=== PATIENT | male | born 1970 | race Two or more races ===

== ENCOUNTER 2025-01-22 07:19 | Inpatient (IN) | payer MEDICAID, OTHER ==
[~2025-01-22] VITALS: Ht 167.6 cm; Wt 69.4 kg
--- NOTE | 2025-01-22 07:58 | ED.PDOC ---
GI ASSESSMENT HPI Comments A 54 YEAR OLD MALE PRESENTS TO THE ED WITH COMPLAINT OF DIARRHEA. PT STATES HE HAS BEEN HAVING DIARRHEA FOR THE PAST 1X WEEK. PT STATES HE HAS BEEN HAVING 4-5 EPISODES DAILY. PT WAS AT YESTERDAY FOR SIMILAR COMPLAINT BUT STATES HE LEFT AFTER PROVIDING URINE BECAUSE HE THOUGHT THEY WOULD GET BACK TO HIM WITH RESULTS. PT ALSO HAS BEEN HAVING DIFFUSE LOW ABDOMINAL PAIN. PATIENT DENIES FEVER, CHILLS, SHORTNESS OF BREATH, CHEST PAIN, ABDOMINAL PAIN, NAUSEA, VOMITING, HEADACHE, OR OTHER COMPLAINTS. NO OTHER SYMPTOMS OR MODIFYING FACTORS AT THIS TIME. PATIENT IS ALERT, ORIENTED X 4, AND HAS STEADY GAIT. Chief Complaint: Diarrhea Time Seen by MD: 07:49 Reviewed Notes: Nurses Notes, Medications, Allergies Allergies: Coded Allergies: NO KNOWN ALLERGIES (Unverified , 01/22/25) Information Source: Patient Mode of Arrival: Ambulatory Brought in by: SELF Timing: Days Duration: Since onset Prehospital treatment: None Quality: Aching, Cramping, Colicky Vomitus: None Stool: Loose, Watery Severity: Moderate Recent: None Recent Hx of: None Pain Location: RLQ, LLQ Modifying Factors: Nothing Associated sign and symptoms: Diarrhea, Abdominal Pain Past Medical History PAST MEDICAL HISTORY: Denies Surgical History: Denies all surgeries Family History Family History: Reviewed,noncontributory to illness Social History Smoker: Non-Smoker Alcohol: Denies ETOH Use Drugs: Denies Drug Use Lives In: Homeless Constitutional: denies: chills, diaphoresis, fatigue, fever, malaise, sweats, weakness, others EENTM: denies: blurred vision, double vision, ear bleeding, ear discharge, ear drainage, ear pain, ear ringing, eye pain, eye redness, hearing loss, mouth pain, mouth swelling, nasal discharge, nose bleeding, nose congestion, nose pain, photophobia, tearing, throat pain, throat swelling, voice changes, others Respiratory: denies: cough, hemoptysis, orthopnea, SOB at rest, shortness of breath, SOB with excertion, stridor, wheezing, others Cardiovascular: denies: chest pain, dizzy spells, diaphoresis, Dyspnea on exertion, edema, irregular heart beat, left arm pain, lightheadedness, palpitations, PND, syncope, others Gastrointestinal: reports: abdominal pain, diarrhea; denies: abdomen distended, blood streaked bowels, constipated, dysphagia, difficulty swallowing, hematemesis, melena, nausea, poor appetite, poor fluid intake, rectal bleeding, rectal pain, vomiting, others Genitourinary: denies: burning, dysuria, flank pain, frequency, hematuria, incontinence, penile discharge, penile sore, pain, testicle pain, testicle swelling, urgency, others Neurological: denies: dizziness, fainting, headache, left sided numbness, left sided weakness, numbness, paresthesia, pre-existing deficit, right sided numbness, right sided weakness, seizure, speech problems, tingling, tremors, weakness, others Musculoskeletal: denies: back pain, gout, joint pain, joint swelling, muscle pain, muscle stiffness, neck pain, others Integumetry: denies: bruises, change in color, change in hair/nails, dryness, laceration, lesions, lumps, rash, wounds, others Allergic/Immunocompromised: denies: Difficulty Healing, Frequent Infections, Hives, Itching, others Hematologic/Lymphatic: denies: anemia, blood clots, easy bleeding, easy bruising, swollen glands, others Endocrine: denies: excessive hunger, excessive sweating, excessive thirst, excessive urination, flushing, intolerance to cold, intolerance to heat, unexplained weight gain, unexplained weight loss, others Psychiatric: denies: anxiety, bipolar disorder, depression, hopeless, panic disorder, schizophrenia, sleepless, suicidal, others All Other Systems: Reviewed and Negative Physical Exam General Appearance: No Apparent Distress, Normal HEENT: Normal ENT Inspection, PERRL/EOMI, Pharynx Normal, TMs Normal Neck: Full Range of Motion, Non-Tender, Normal, Normal Inspection Respiratory: Chest Non-Tender, Lungs Clear, No Accessory Muscle Use, No Respiratory Distress, Normal Breath Sounds Cardiovascular: No Edema, No JVD, No Murmur, No Gallop, Normal Peripheral Pulses, Regular Rate/Rhythm Breast Exam: Deferred Gastrointestinal: LLQ, No Organomegaly, No Pulsatile Mass, Normal Bowel Sounds, RLQ, Soft, Tenderness (LOWER ABD, NO GUARDING AND REBOUND TENDERNESS. ) Genitalia: Deferred Pelvic: Deferred Rectal: Deferred Extremities: No calf tenderness, Normal capillary refill, Normal inspection, Normal range of motion, Non-tender, No pedal edema Musculoskeletal : Apperance: Normal Neurologic: Alert, anthropology department chair II-XII nml as Tested, No Motor Deficits, Normal Affect, Normal Mood, No Sensory Deficits Cerebellar Function: Normal Reflexes: Normal Skin: Dry, Normal Color, Warm Peripheral Pulses: 2+ carotid (R), 2+ carotid (L) Lymphatic: No Adenopathy Was a procedure done? Was a procedure done?: No GI differential Dx Differential Diagnosis: Diverticular disease, Gastritis/PUD, Gastroenteritis, Inflammatory BD, Ischemic Bowel, UTI, Electrolyte Imbalance, Food Poisoning Other Differential Diagnosis DIARRHEA,COLITIS X-Ray, Labs, Meds, VS Vital Signs Date Time Temp Pulse Resp B/P (MAP) Pulse Ox O2 Delivery O2 Flow Rate FiO2 01/22/25 08:00 100 18 96 Room Air 01/22/25 08:00 100 18 114/82 (93) 96 01/22/25 07:20 97.9 92 22 130/80 94 97.9 Lab Test 01/22/25 07:54 01/22/25 07:48 Range/Units White Blood Count 7.2 4.4-10.8 10^3/uL Red Blood Count 4.15 L 4.5-5.90 10^6/uL Hemoglobin 11.9 L 13.5-17.5 g/dL Hematocrit 35.7 L 41.0-53.0 % Mean Corpuscular Volume 86.2 80.0-100.0 fL Mean Corpuscular Hemoglobin 28.6 28.0-32.0 pg Mean Corpuscular Hemoglobin Concent 33.2 32.0-36.0 g/dL Red Cell Distribution Width 15.9 H 11.8-14.3 % Platelet Count 319 140-450 10^3/uL Mean Platelet Volume 7.6 6.9-10.8 fL Neutrophils (%) (Auto) 37.0-80.0 % Lymphocytes (%) (Auto) 10.0-50.0 % Monocytes (%) (Auto) 0.0-12.0 % Eosinophils (%) (Auto) 0.0-7.0 % Basophils (%) (Auto) 0.0-2.0 % Neutrophils # (Auto) 1.6-8.6 10 ^3/uL Lymphocytes # (Auto) 0.4-5.4 10 ^3/uL Monocytes # (Auto) 0-1.3 10 ^3/uL Differential Total Cells Counted 100.0 100 Neutrophils % (Manual) 35 L 37.0-80.0 Band Neutrophils % (Manual) 0 Lymphocytes % (Manual) 14 10.0-50.0 Monocytes % (Manual) 6 0-12 Eosinophils % (Manual) 45 H 0-7 Basophils % (Manual) 0 0.0-2.0 Metamyelocytes % (manual) 0 Myelocytes % (Manual) 0 Promyelocytes % (Manual) 0 Blast Cells % (Manual) 0 Reactive Lymphocytes 0 Platelet Estimate Adequate Sodium Level 138 136-145 mmol/L Potassium Level 4.4 3.5-5.1 mmol/L Chloride Level 105 98-107 mmol/L Carbon Dioxide Level 26 20-31 mmol/L Anion Gap 7 5-15 Blood Urea Nitrogen 12 9-23 mg/dL Creatinine 0.96 0.700-1.30 mg/dL Glomerular Filtration Rate Calc 93 >90 mL/min BUN/Creatinine Ratio 12.5 10.0-20.0 Serum Glucose 96 74-106 mg/dL Calcium Level 8.6 L 8.7-10.4 mg/dL Total Bilirubin 0.3 0.2-1.0 mg/dL Aspartate Amino Transferase (AST) 21 13-40 U/L Alanine Aminotransferase (ALT) 26 7-40 U/L Alkaline Phosphatase 109 46-116 U/L Total Protein 9.0 H 5.7-8.2 g/dL Albumin 3.4 3.2-4.8 g/dL Urine Color Yellow Yellow Urine Clarity Turbid H Clear Urine pH 6.5 5.0-9.0 Urine Specific Sanders 1.021 1.001-1.035 Urine Protein Trace H Negative Urine Ketones Negative Negative Urine Blood Trace H Negative /uL Urine Nitrite 2+ H Negative Urine Bilirubin Negative Negative Urine Urobilinogen 2 H Negative mg/dL Urine Leukocyte Esterase 3+ Negative /uL Urine RBC 7 0 - 3 /hpf Urine Microscopic WBC 31 H 0-3 /HPF Urine Squamous Epithelial Cells Few <5 /hpf Urine Bacteria Few H None Seen /hpf Urine Glucose Normal Normal mg/dL Urine Opiates Screen Neg NEGATIVE Urine Fentanyl Screen Neg NEGATIVE Urine Barbiturates Screen Neg NEGATIVE Urine Phencyclidine Screen Neg NEGATIVE Urine Amphetamines Screen Pos NEGATIVE Urine Benzodiazepines Screen Neg NEGATIVE Urine Cocaine Screen Neg NEGATIVE Urine Cannabinoids Screen Neg NEGATIVE Microbiology Date/Time Source Procedure Growth Status 01/22/25 07:45 Stool Clostridium difficile Toxin Assay - Final Complete Current Medications Medications (Trade) Dose Ordered Sig/Joni Route Start Time Stop Time Status Last Admin Sodium Chloride 1,000 ml @ 1,000 mls/hr Q1H ONCE IV 01/22/25 07:45 01/22/25 08:44 DC 01/22/25 09:19 Loperamide HCl (Imodium Capsule) 4 mg ONCE ONCE PO 01/22/25 07:45 01/22/25 07:49 DC 01/22/25 09:19 Famotidine (Pepcid Injection) 20 mg ONCE ONCE IV 01/22/25 07:45 01/22/25 07:49 DC 01/22/25 09:20 [place] [id number] Ph: [phone] DIAGNOSTIC IMAGING Diagnostic Imaging Report : [id number] Signed PATIENT: ROCIO MENG ACCT: [id number] UNIT: [id number] : 1970 LOC: ER ROOM / BED: / AGE / SEX: 54 / M ADM STATUS: REG ER SERVICE ORDERING PHYSICIAN: BRANDON ALMONTE PROCEDURE(s): ABPL - CT AB PEL WO CON-NO ORAL OR IV REASON: ABD PAIN WITH DIZRRHEA X ONE WEEK ORDER NUMBER(s): [id number], ACCESSION NUMBER(s): [id number] Exam: CT CT AB PEL WO CON-NO ORAL OR IV History: ABD PAIN WITH DIZRRHEA X ONE WEEK Comparison Study: None. Technique: Multidetector spiral CT of the abdomen and pelvis was performed from lung bases to pubic symphysis. Imaging was performed without intravenous contrast. Coronal and sagittal multiplanar reformats were obtained from the axial data set by the technologist. Radiation Dose : 1. Abdomen/Pelvis: CTDIvol 5.57 mGy, DLP 323.64 mGy*cm. Findings: Evaluation of vasculature and solid organs is limited due to lack of intravenous contrast use. Evaluation also limited by respiratory motion through the upper abdomen. Lung Bases: There are right middle and lower lobe infiltrates. Coronary artery calcifications noted. Visualized portions of the heart are normal in size. No pericardial effusion. Liver: The liver is normal in size. No focal lesions. Gallbladder and Biliary Tree: The gallbladder is unremarkable. No intrahepatic or extrahepatic biliary ductal dilatation. Spleen: Unremarkable Pancreas: The pancreas is grossly unremarkable. Adrenal Glands: Unremarkable Kidneys: Kidneys are unremarkable without calculi or hydronephrosis. GI tract: The stomach is grossly normal in appearance. No evidence of small bowel wall thickening or abnormal dilatation to suggest bowel obstruction. There is mucosal thickening of the distal sigmoid colon and rectum. No findings to suggest acute appendicitis. Peritoneum/mesentery/retroperitoneum. No evidence of free intraperitoneal air. No ascites. No evidence of suspicious lymphadenopathy. Abdominal Wall: Unremarkable. Vasculature: The visualized abdominal aorta is normal in size and caliber. Evaluation of abdominal and pelvic vessels is limited due to lack of intravenous contrast. Urinary Bladder: Underdistended urinary bladder with wall thickening. Pelvic Organs: Prostate and seminal vesicles are unremarkable. Musculoskeletal: No aggressive focal bony lesions, acute fractures or disl ocation. There is serpiginous sclerosis in the bilateral femoral heads. IMPRESSION: 1. Mucosal thickening of the distal sigmoid colon and rectum may be due to underdistention or represent infectious/inflammatory colitis. 2. Right middle and lower lobe infiltrates. 3. Serpiginous sclerosis in the bilateral femoral heads suggesting avascular necrosis. No articular collapse. 4. Mild wall thickening of the urinary bladder may be related to underdistention. Cystitis is not excluded. ATED BY: JOSETTE VASQUEZ MD DICTATED DATE/TIME: 01/22/25922 SIGNED BY: JOSETTE VASQUEZ MD SIGNED DATE/TIME: 01/22/25922 CC: X-Ray, Labs, Meds, VS Comment COURSE: EXTERNAL MEDICAL RECORDS REVIEWED: [NONE] INDEPENDENT HISTORIANS: [NONE] SOCIAL DETERMINANTS OF HEALTH: [NONE] LABS ORDERED: CBC, CMP, UA, DRUG SCREEN, C DIFF TOXIN, PENDING REVIEWED AND INTERPRETED RESULTS: NORMAL, EXCEPT UA: WBC : NITRITE:2+, LEUKOCYTE:3+ IMAGING ORDERED: CT ABDOMEN PELVIS NON-CON TREATMENTS ORDERED: IV FLUIDS 1L, FAMOTIDINE 20 MG, LOPERAMIDE 4 MG PO, FLAGYL 500MG IVP AND LEVAQUIN 500MG IVP PROCEDURES PERFORMED: NONE CRITICAL CARE TIME: NONE I HAVE DISCUSSED THE PATIENT WITH THE ATTENDING PHYSICIAN DR. GAMEZ AND HE AGREES WITH THE PATIENT'S PLAN OF CARE AND DISPOSITION. THE PT WILL BE ADMITTED FOR IV ANTIBIOTICS AND MANAGEMENT FOR HIS COLITIS. THE PT WILL BE ADMITTED FOR FURTHER EVALUATION. Time of 1ST Reevaluation: 09:46 Reevaluation 1ST: Unchanged Patient Education/Counseling: Diagnosis, Treatment Family Education/Counseling: Diagnosis, Treatment SEPSIS Sepsis Screen Date sepsis recognized/suspect: Jan 22, 2025 Time Sepsis recognized/suspect: 722 Recent Procedure: No On Antibiotic Therapy: No Respiratory Rate >20: No Heart Rate >90: No Temp<36 C (96.8 F) or >38.3 C: No SBP <90 or MAP <65 mmHG: No New Acute Mental Status Change: No Is the patient on CPAP, BIPAP,: No Physician Orders Ct Ab Pel Wo Con-No Oral Or Iv (01/22/25 07:44) Heplock Iv (01/22/25 ) Vital Signs Date Time Temp Pulse Resp B/P (MAP) Pulse Ox O2 Delivery O2 Flow Rate FiO2 01/22/25 08:00 100 18 96 Room Air 01/22/25 08:00 100 18 114/82 (93) 96 01/22/25 07:20 97.9 92 22 130/80 94 97.9 Laboratory Tests Test 01/22/25 07:54 White Blood Count 7.2 10^3/uL (4.4-10.8) Medications Medications Dose Ordered Sig/Joni Route Start Time Stop Time Status Last Admin Dose Admin Famotidine 20 mg ONCE ONCE IV 01/22/25 07:45 01/22/25 07:49 DC 01/22/25 09:20 Loperamide HCl 4 mg ONCE ONCE PO 01/22/25 07:45 01/22/25 07:49 DC 01/22/25 09:19 Sodium Chloride 1,000 ml @ 1,000 mls/hr Q1H ONCE IV 01/22/25 07:45 01/22/25 08:44 DC 01/22/25 09:19 Departure 1 Departure Time of Disposition: 09:46 Impression: Primary Impression: Infectious colitis Additional Impressions: UTI (urinary tract infection) Qualified Codes: N39.0 - Urinary tract infection, site not specified; R31.9 - Hematuria, unspecified Methamphetamine abuse Disposition: ADMITTED INPATIENT Condition: Serious Critical Care Note Critical Care Time?: No Stability Stability form required: Yes Unstable for transfer: Requires medication, ED Physician Assesment, Possible rapid decline Heart Score Heart Score: Heart Score Response (Comments) Value History N/A 0 EKG N/A 0 Age N/A 0 Risk Factors N/A 0 Troponin N/A 0 Total 0 I personally scribed for BRANDON ALMONTE ([email or web address]) on 01/22/25 at 07:58. Electronically submitted by Avery Sterling ([email or web address]). I personally scribed for BRANDON ALMONTE ([email or web address]) on 01/22/25 at 09:29. Electronically submitted by Avery Sterling ([email or web address]). I personally scribed for BRANDON ALMONTE ([email or web address]) on 01/22/25 at 09:38. Electronically submitted by Avery Sterling ([email or web address]). I personally scribed for BRANDON ALMONTE ([email or web address]) on 01/22/25 at 09:54. Electronically submitted by Avery Sterling ([email or web address]). BRANDON ALMONTE Jan 22, 2025 07:58
[2025-01-22 08:05] LABS: Hematocrit 35.7 % (41.0-53.0); Hemoglobin 11.9 g/dL (13.5-17.5); Mean Corpuscular Hemoglobin 28.6 pg (28.0-32.0); Mean Corpuscular Volume 86.2 fL (80.0-100.0)
[2025-01-22 08:22] LABS: Urine Protein, UAD TRACE (Negative)
[2025-01-22 08:23] LABS: Alanine Aminotransferase 26 U/L (7-40); Albumin 3.4 g/dL (3.2-4.8); Alkaline Phosphatase 109 U/L (46-116); Anion Gap 7 (5-15); BUN/Creatinine Ratio 12.5 (10.0-20.0); Blood Urea Nitrogen 12 mg/dL (9-23); Carbon Dioxide 26 mmol/L (20-31); Chloride 105 mmol/L (98-107); Glucose 96 mg/dL (74-106); Potassium 4.4 mmol/L (3.5-5.1); Sodium 138 mmol/L (136-145)
[2025-01-22 08:24] LABS: Bilirubin, Total 0.3 mg/dL (0.2-1.0)
[2025-01-22 08:27] LABS: Calcium 8.6 mg/dL (8.7-10.4); Total Protein 9.0 g/dL (5.7-8.2)
[2025-01-22 08:42] LABS: Amphetamine Screen, Urine Pos (NEGATIVE); Barbiturate Scree,Urine Neg (NEGATIVE); Benzodiazephine Screen, Urine Neg (NEGATIVE); Cannabinoid Screen, Urine Neg (NEGATIVE); Cocaine Screen, Urine Neg (NEGATIVE); Opiate Scree,Urine Neg (NEGATIVE); Phencyclidine Screen, Urine Neg (NEGATIVE)
[2025-01-22] MEDS: SODIUM CHLORIDE 0.9% 1,000 ML IV ONE (09:19)
[2025-01-22] MEDS: LOPERAMIDE HCL 2 MG CAP/TAB PO ONE (09:19)
[2025-01-22 09:20] LABS: Total Cells Counted 100.0 (100)
[2025-01-22] MEDS: FAMOTIDINE (10MG/ML) 2ML VL IV ONE (09:20)
--- NOTE | 2025-01-22 09:25 | DVH ---
Exam: CT CT AB PEL WO CON-NO ORAL OR IV History: ABD PAIN WITH DIZRRHEA X ONE WEEK Comparison Study: None. Technique: Multidetector spiral CT of the abdomen and pelvis was performed from lung bases to pubic symphysis. Imaging was performed without intravenous contrast. Coronal and sagittal multiplanar reformats were obtained from the axial data set by the technologist. Radiation Dose : 1. Abdomen/Pelvis: CTDIvol 5.57 mGy, DLP 323.64 mGy*cm. Findings: Evaluation of vasculature and solid organs is limited due to lack of intravenous contrast use. Evaluation also limited by respiratory motion through the upper abdomen. Lung Bases: There are right middle and lower lobe infiltrates. Coronary artery calcifications noted. Visualized portions of the heart are normal in size. No pericardial effusion. Liver: The liver is normal in size. No focal lesions. Gallbladder and Biliary Tree: The gallbladder is unremarkable. No intrahepatic or extrahepatic biliary ductal dilatation. Spleen: Unremarkable Pancreas: The pancreas is grossly unremarkable. Adrenal Glands: Unremarkable Kidneys: Kidneys are unremarkable without calculi or hydronephrosis. GI tract: The stomach is grossly normal in appearance. No evidence of small bowel wall thickening or abnormal dilatation to suggest bowel obstruction. There is mucosal thickening of the distal sigmoid colon and rectum. No findings to suggest acute appendicitis. Peritoneum/mesentery/retroperitoneum. No evidence of free intraperitoneal air. No ascites. No evidence of suspicious lymphadenopathy. Abdominal Wall: Unremarkable. Vasculature: The visualized abdominal aorta is normal in size and caliber. Evaluation of abdominal and pelvic vessels is limited due to lack of intravenous contrast. Urinary Bladder: Underdistended urinary bladder with wall thickening. Pelvic Organs: Prostate and seminal vesicles are unremarkable. Musculoskeletal: No aggressive focal bony lesions, acute fractures or dislocation. There is serpiginous sclerosis in the bilateral femoral heads. IMPRESSION: 1. Mucosal thickening of the distal sigmoid colon and rectum may be due to underdistention or represent infectious/inflammatory colitis. 2. Right middle and lower lobe infiltrates. 3. Serpiginous sclerosis in the bilateral femoral heads suggesting avascular necrosis. No articular collapse. 4. Mild wall thickening of the urinary bladder may be related to underdistention. Cystitis is not excluded.
[2025-01-22] MEDS ORDERED: MORPHINE SULFATE INJ 2 MG/ml SYRG IV PRN (09:45)
[2025-01-22] MEDS ORDERED: ONDANSETRON HCL 4 MG/2 ML VIAL IV PRN (09:45)
--- NOTE | 2025-01-22 09:58 | DVHHP2 ---
History of Present Illness Reason for Visit: Diarrhea x1 week History of Present Illness Mirza Elam is a 54-year-old male with unknown past medical history who presents to the ED with diarrhea x1 week. Patient reports that he has been having 4-5 episodes of watery stool, now reports abdominal pain with nausea, vomiting, and headache. Patient reports that his headache is 1/10 "pain" and constant. Reports that he is homeless but does stay with a friend sometimes and [place]. He denies any cough or phlegm. Patient is a poor historian. Patient appears unkempt. Patient denies any recent sick contacts, recent ingestion of spoiled food, recent trauma or injury, chest pain, shortness of breath, fever, chills, lightheadedness, weakness, or dizziness. Past Surgical History: None Family History: None Smoke: No ALCOHOL: none Drugs: Other (Amphetamines) Lives: Homeless Domestic Violence: Neg Review of Systems Constitutional: Yes: Other (Headache) Gastrointestinal: Nausea, Vomiting, Abdominal Pain, Diarrhea Allergies: Coded Allergies: NO KNOWN ALLERGIES (Unverified , 01/22/25) Exam Vital Signs Vital Signs Date Time Temp Pulse Resp B/P (MAP) Pulse Ox O2 Delivery O2 Flow Rate FiO2 01/22/25 08:00 100 18 96 Room Air 01/22/25 08:00 114/82 (93) 01/22/25 07:20 97.9 97.9 General Appearance: Alert, Oriented X3, Cooperative, No acute distress HEENT: Atraumatic, PERRLA, EOMI Respiratory: Normal air movement Cardiovascular: Regular rate, Normal S1, Normal S2 Abdominal: Soft Extremities: No cyanosis Neuro: Normal gait, Normal speech, Strength at 5/5 X4 ext, Normal tone, Sensation intact Psych/Mental Status: Mental status NL, Mood NL Labs/Xrays Labs Test 01/22/25 07:54 01/22/25 07:48 Range/Units White Blood Count 7.2 4.4-10.8 10^3/uL Red Blood Count 4.15 L 4.5-5.90 10^6/uL Hemoglobin 11.9 L 13.5-17.5 g/dL Hematocrit 35.7 L 41.0-53.0 % Mean Corpuscular Volume 86.2 80.0-100.0 fL Mean Corpuscular Hemoglobin 28.6 28.0-32.0 pg Mean Corpuscular Hemoglobin Concent 33.2 32.0-36.0 g/dL Red Cell Distribution Width 15.9 H 11.8-14.3 % Platelet Count 319 140-450 10^3/uL Mean Platelet Volume 7.6 6.9-10.8 fL Neutrophils (%) (Auto) 37.0-80.0 % Lymphocytes (%) (Auto) 10.0-50.0 % Monocytes (%) (Auto) 0.0-12.0 % Eosinophils (%) (Auto) 0.0-7.0 % Basophils (%) (Auto) 0.0-2.0 % Neutrophils # (Auto) 1.6-8.6 10 ^3/uL Lymphocytes # (Auto) 0.4-5.4 10 ^3/uL Monocytes # (Auto) 0-1.3 10 ^3/uL Differential Total Cells Counted 100.0 100 Neutrophils % (Manual) 35 L 37.0-80.0 Band Neutrophils % (Manual) 0 Lymphocytes % (Manual) 14 10.0-50.0 Monocytes % (Manual) 6 0-12 Eosinophils % (Manual) 45 H 0-7 Basophils % (Manual) 0 0.0-2.0 Metamyelocytes % (manual) 0 Myelocytes % (Manual) 0 Promyelocytes % (Manual) 0 Blast Cells % (Manual) 0 Reactive Lymphocytes 0 Platelet Estimate Adequate Sodium Level 138 136-145 mmol/L Potassium Level 4.4 3.5-5.1 mmol/L Chloride Level 105 98-107 mmol/L Carbon Dioxide Level 26 20-31 mmol/L Anion Gap 7 5-15 Blood Urea Nitrogen 12 9-23 mg/dL Creatinine 0.96 0.700-1.30 mg/dL Glomerular Filtration Rate Calc 93 >90 mL/min BUN/Creatinine Ratio 12.5 10.0-20.0 Serum Glucose 96 74-106 mg/dL Calcium Level 8.6 L 8.7-10.4 mg/dL Total Bilirubin 0.3 0.2-1.0 mg/dL Aspartate Amino Transferase (AST) 21 13-40 U/L Alanine Aminotransferase (ALT) 26 7-40 U/L Alkaline Phosphatase 109 46-116 U/L Total Protein 9.0 H 5.7-8.2 g/dL Albumin 3.4 3.2-4.8 g/dL Urine Color Yellow Yellow Urine Clarity Turbid H Clear Urine pH 6.5 5.0-9.0 Urine Specific [place] 1.021 1.001-1.035 Urine Protein Trace H Negative Urine Ketones Negative Negative Urine Blood Trace H Negative /uL Urine Nitrite 2+ H Negative Urine Bilirubin Negative Negative Urine Urobilinogen 2 H Negative mg/dL Urine Leukocyte Esterase 3+ Negative /uL Urine RBC 7 0 - 3 /hpf Urine Microscopic WBC 31 H 0-3 /HPF Urine Squamous Epithelial Cells Few <5 /hpf Urine Bacteria Few H None Seen /hpf Urine Glucose Normal Normal mg/dL Urine Opiates Screen Neg NEGATIVE Urine Fentanyl Screen Neg NEGATIVE Urine Barbiturates Screen Neg NEGATIVE Urine Phencyclidine Screen Neg NEGATIVE Urine Amphetamines Screen Pos NEGATIVE Urine Benzodiazepines Screen Neg NEGATIVE Urine Cocaine Screen Neg NEGATIVE Urine Cannabinoids Screen Neg NEGATIVE Exam: CT CT AB PEL WO CON-NO ORAL OR IV History: ABD PAIN WITH DIZRRHEA X ONE WEEK Comparison Study: None. Technique: Multidetector spiral CT of the abdomen and pelvis was performed from lung bases to pubic symphysis. Imaging was performed without intravenous contrast. Coronal and sagittal multiplanar reformats were obtained from the axial data set by the technologist. Radiation Dose : 1. Abdomen/Pelvis: CTDIvol 5.57 mGy, DLP 323.64 mGy*cm. Findings: Evaluation of vasculature and solid organs is limited due to lack of intravenous contrast use. Evaluation also limited by respiratory motion through the upper abdomen. Lung Bases: There are right middle and lower lobe infiltrates. Coronary artery calcifications noted. Visualized portions of the heart are normal in size. No pericardial effusion. Liver: The liver is normal in size. No focal lesions. Gallbladder and Biliary Tree: The gallbladder is unremarkable. No intrahepatic or extrahepatic biliary ductal dilatation. Spleen: Unremarkable Pancreas: The pancreas is grossly unremarkable. Adrenal Glands: Unremarkable Kidneys: Kidneys are unremarkable without calculi or hydronephrosis. GI tract: The stomach is grossly normal in appearance. No evidence of small bowel wall thickening or abnormal dilatation to suggest bowel obstruction. There is mucosal thickening of the distal sigmoid colon and rectum. No findings to suggest acute appendicitis. Peritoneum/mesentery/retroperitoneum. No evidence of free intraperitoneal air. No ascites. No evidence of suspicious lymphadenopathy. Abdominal Wall: Unremarkable. Vasculature: The visualized abdominal aorta is normal in size and caliber. Evaluation of abdominal and pelvic vessels is limited due to lack of intravenous contrast. Urinary Bladder: Underdistended urinary bladder with wall thickening. Pelvic Organs: Prostate and seminal vesicles are unremarkable. Musculoskeletal: No aggressive focal bony lesions, acute fractures or dislocation. There is serpiginous sclerosis in the bilateral femoral heads. IMPRESSION: 1. Mucosal thickening of the distal sigmoid colon and rectum may be due to underdistention or represent infectious/inflammatory colitis. 2. Right middle and lower lobe infiltrates. 3. Serpiginous sclerosis in the bilateral femoral heads suggesting avascular necrosis. No articular collapse. 4. Mild wall thickening of the urinary bladder may be related to underdistention. Cystitis is not excluded. SEPSIS Sepsis Screen Date sepsis recognized/suspect: Jan 22, 2025 Time Sepsis recognized/suspect: 722 Recent Procedure: No On Antibiotic Therapy: No Respiratory Rate >20: No Heart Rate >90: No Temp<36 C (96.8 F) or >38.3 C: No SBP <90 or MAP <65 mmHG: No New Acute Mental Status Change: No Is the patient on CPAP, BIPAP,: No Physician Orders Clostridium Difficile Toxin (01/22/25 07:44) Ct Ab Pel Wo Con-No Oral Or Iv (01/22/25 07:44) Heplock Iv (01/22/25 ) Metronidazole 500mg/100ml (Flagyl 500mg/ (01/22/25 09:45) Levofloxacin 500mg (Levaquin 500mg/ 100m (01/22/25 09:45) Vital Signs Date Time Temp Pulse Resp B/P (MAP) Pulse Ox O2 Delivery O2 Flow Rate FiO2 01/22/25 08:00 100 18 96 Room Air 01/22/25 08:00 100 18 114/82 (93) 96 01/22/25 07:20 97.9 92 22 130/80 94 97.9 Laboratory Tests Test 01/22/25 07:54 White Blood Count 7.2 10^3/uL (4.4-10.8) Medications Medications Dose Ordered Sig/Joni Route Start Time Stop Time Status Last Admin Dose Admin Famotidine 20 mg ONCE ONCE IV 01/22/25 07:45 01/22/25 07:49 DC 01/22/25 09:20 20 MG Loperamide HCl 4 mg ONCE ONCE PO 01/22/25 07:45 01/22/25 07:49 DC 01/22/25 09:19 4 MG Sodium Chloride 1,000 ml @ 1,000 mls/hr Q1H ONCE IV 01/22/25 07:45 01/22/25 08:44 DC 01/22/25 09:19 1,000 MLS/HR Assessment/Plan Assessment/Plan Assessment Intractable diarrhea likely secondary to colitis Intractable abdominal pain with nausea and vomiting with headache Right middle and lower lobe infiltrates likely pneumonia Serpiginous sclerosis in the bilateral femoral heads suggesting avascular necrosis Acute cystitis Positive methamphetamines Plan Admit to med surge Antiemetics Pain management IV antibiotics-levofloxacin + Flagyl NS 1 L given ED Manual differential CT abdomen and pelvis noted UA UDS C diff stool Antidiarrheal given in ED Diet Home medications reconciled DVT prophylaxis-SCDs PUD prophylaxis-H2 blockers Discussed plan of care with patient and nurse Consider ortho consult Counseled patient on cessation of substance use 48861 Behavior change smoking greater than 10 minutes about use of other options also gave option of nicotine patch [id number] Preventive counseling healthy eating habits, physical activity, and regular checkups Social work-patient homeless Plan discussed with: Patient Date of Service: Jan 22, 2025 Billing Provider: DEBI PAYNE Common Visit Codes: [id number] INP/OBS CARE (HIGH) Secondary Visit Codes: [id number] COUNSELING IND, [id number] CHNG SMOKING >10MIN DEBI PAYNE Jan 22, 2025 09:58
[2025-01-22 10:16] VITALS: PULSE 85; RESP 17; O2SAT 99
[2025-01-22] MEDS: SODIUM CHLORIDE 0.9% 1,000 ML IV SCH (10:26)
[2025-01-22 16:00] VITALS: RESP 18; TEMP 97.8; O2SAT 95
[2025-01-22 16:36] VITALS: BP 106/73; PULSE 90; RESP 18; TEMP 97.9; O2SAT 100
[2025-01-22 20:00] VITALS: PULSE 106; RESP 18; O2SAT 0
[2025-01-22 21:00] VITALS: BP 118/79; PULSE 106; RESP 18; TEMP 98.8; O2SAT 99
[2025-01-23] VITALS (8 sets, daily range): BP systolic 102–139; BP diastolic 66–77; PULSE 1–100; RESP 16–18; TEMP 97.4–98.7; O2SAT 0–97
[2025-01-23 05:55] LABS: Hematocrit 31.8 % (41.0-53.0); Hemoglobin 10.7 g/dL (13.5-17.5); Mean Corpuscular Hemoglobin 28.9 pg (28.0-32.0); Mean Corpuscular Volume 86.2 fL (80.0-100.0)
[2025-01-23 06:12] LABS: Alanine Aminotransferase 21 U/L (7-40); Alkaline Phosphatase 100 U/L (46-116); Anion Gap 8 (5-15); BUN/Creatinine Ratio 9.7 (10.0-20.0); Bilirubin, Total 0.4 mg/dL (0.2-1.0); Carbon Dioxide 23 mmol/L (20-31); Chloride 106 mmol/L (98-107); Glucose 78 mg/dL (74-106); Potassium 3.9 mmol/L (3.5-5.1); Sodium 137 mmol/L (136-145); Total Protein 7.9 g/dL (5.7-8.2)
[2025-01-23 06:14] LABS: Albumin 3.0 g/dL (3.2-4.8); Blood Urea Nitrogen 9 mg/dL (9-23); Calcium 8.3 mg/dL (8.7-10.4)
[2025-01-23 06:57] LABS: Total Cells Counted 100.0 (100)
--- NOTE | 2025-01-23 09:47 | DVHPNRES ---
Progress Note Date Seen: Jan 23, 2025 Resident Creating Document: SARAH CARRILLO RESIDENT Medical Necessity Reason Pt with a Central, PICC or Fol: No Subjective Review of Systems patient is 54 years old male with a history of HIV for 20 years noncompliant with the medication, not taking medication for last 4 years as it ran out, depression came with a complaint of abdominal pain and diarrhea. As per patient he has been having Bloody diarrhea couple of episode every day for last one weeks. patient also endorsed abdominal pain crampy, continuous in nature, 8/10 for last 1 month. On further inquiry patient also endorsed nausea and vomiting x2, nonbloody. Patient reported feeling chills and fever but did not record temperature. Patient reported he is not taking his HIV medication which ran out 4 month before because of the financial issue. Denied any rash, chest pain, shortness of breath acute joint redness or swelling dysarthria or change in vision. Denied any colonoscopy or endoscopy before. Initial lab workup revealed WBC 7.2, hemoglobin 11.9, RDW 15.9, eosinophil 45, neutrophil 35. A1c 5.6, UDS positive for methamphetamine. urinalysis revealed leukocyte esterase 3+, nitrite 3+, WBC 31, bacteria many. CT abdomen and pelvis revealed-1. Mucosal thickening of the distal sigmoid colon and rectum may be due to underdistention or represent infectious/inflammatory colitis. Right middle and lower lobe infiltrates. Serpiginous sclerosis in the bilateral femoral heads suggesting avascular necrosis. No articular collapse. Mild wall thickening of the urinary bladder may be related to underdistention. Cystitis is not excluded. PMH- HIV, depression PSH- none Allergy- NKDA Personal History/ Social History- denies smoking, denies alcoholism, use amphetamine, lives with a friend/? Homeless ROS Cardiovascular- deny acute chest pain or shortness of breath or cough or palpitation Respiratory denies cough or short of breath or wheezing Gastrointestinal- abdominal pain, nausea or vomiting Musculoskeletal-denies acute joint swelling or tenderness or redness Neurological- denies acute dysarthria, dysphagia, change in vision Psychiatry- denies depression or SI or HI Skin- denies acute rash or purpura Patient was seen today at bedside, less than chart reviewed. C diff not detected, Patient reported ongoing abdominal pain, 8/10, ordered HIV 1 and 2, CD4/ CD8 cell ratio, HIV viral load, stool for culture, Stool for occult blood test. . Ordered Bactrim IV and also ordered infectious disease consult for further evaluation and care.commended-ordered chlamydia/gonococcal, troponin pallidum, QuantiFERON TB gold test, toxoplasma gondi test, cryptococcal antibody, CMV immunoglobulin, MRI brain brain head without contrast. Treponema pallidum antibody reactive, RPR reactive A, RPR titer 1 is to 8 A. Patient is started on penicillin G. Objective vital signs Vital Sign Date Time Temp Pulse Resp B/P (MAP) Pulse Ox O2 Delivery O2 Flow Rate FiO2 01/23/25 08:00 93 16 95 Room Air* 0 21 01/23/25 05:00 98.7 104/67 (79) 98.7 Total Intake and Output 01/22/25 01/22/25 01/23/25 15:00 23:00 07:00 Intake Total 1200 ml 100 ml 1800 ml Output Total 500 ml 2350 ml Balance 700 ml 100 ml -550 ml medications Current Medications Medications Dose Ordered Sig/Joni Route Start Time Stop Time Status Last Admin Dose Admin Metronidazole 100 ml @ 100 mls/hr Q8HR IV 01/22/25 14:00 01/23/25 05:41 100 MLS/HR Sodium Chloride 1,000 ml @ 120 mls/hr Q8H20M IV 01/22/25 09:45 01/23/25 05:40 120 MLS/HR Acetaminophen/ Hydrocodone Bitart 1 tab Q4HP PRN PO 01/22/25 09:45 Ondansetron HCl 4 mg Q4HP PRN IV 01/22/25 09:45 Acetaminophen 650 mg Q6HP PRN PO 01/22/25 09:45 Morphine Sulfate 2 mg Q4HPRN PRN IV 01/22/25 09:45 Famotidine 20 mg DAILY IV 01/23/25 10:00 Ceftriaxone Sodium 50 ml @ 100 mls/hr DAILY@0900 IV 01/23/25 09:00 Citalopram Hydrobromide 40 mg DAILY PO 01/23/25 09:00 UNV Examination General examination- malnourished HEENT- PEERLA, no acute nasal discharge Cardiovascular- S1-S2 audible, rate and rhythm regular, no murmur Respiratory- CTAB, no wheeze or rhonchi Gastrointestinal- mild diffuse abdominal tenderness present, bowel sound+. Nondistended Musculoskeletal-no acute joint swelling or tenderness or redness Lower extremity- no leg edema Neurological- cranial nerves intact, no acute dysarthria or dysphagia Psychiatry- denies depression or SI or HI Skin- no acute rash or purpura laboratory and microbiology Laboratory Tests 01/23/25 04:36 Test 01/23/25 04:36 Range/Units Serum Glucose 78 74-106 mg/dL Microbiology Date/Time Source Procedure Growth Status 01/22/25 07:45 Stool Clostridium difficile Toxin Assay - Final Complete Problem List/Assessment/Plan Problem List/Assessment/Plan Assessment and plan # acute intractable nausea and vomiting and abdominal pain likely due to acute sigmoid colitis and proctitis # acute gastroenteritis likely due to above - CT abdomen and pelvis revealed-1. Mucosal thickening of the distal sigmoid colon and rectum may be due to underdistention or represent infectious/inflammatory colitis. -negative for C diff - ordered stool for ova, parasite, WBC, - ordered stool for occult blood test - ordered stool culture - on IV normal saline -continue penicillin as prescribed -continue metronidazole as prescribed -continue Bactrim IV as prescribed - on IV metronidazole - monitor vitals -ordered infectious disease consult for further evaluation and [id number] chlamydia/gonococcal, troponin pallidum, QuantiFERON TB gold test, toxoplasma Wagner test, cryptococcal antibody, CMV immunoglobulin, brain head without contrast. # suspected pneumonia, PCP due to history of HIV - CT scan- Right middle and lower lobe infiltrates -continue current IV antibiotics as prescribed -ordered infectious disease consult for further evaluation and care # syphilis -treponema pallidum antibody reactive -RPR reactive -RPR titer 1 is to 8 -patient was started on penicillin -continue monitoring clinically #UTI -urinalysis revealed leukocyte esterase 3+, nitrite 3+, WBC 31, bacteria many - CT abdomen and pelvis-Mild wall thickening of the urinary bladder may be related to under distention. -continue current antibiotic # HIV - ordered CD4/CD8 cell ratio - ordered HIV viral load -continue current treatment # Substance abuse, UDS positive for methamphetamine - patient was counseled about the effect of substance abuse on health # depression - restarted home medication citalopram # Serpiginous sclerosis in the bilateral femoral heads suggesting avascular necrosis-CT scan finding -follow up outpatient with the primary care physician Goals of care, Code status full code; discussed with >15 minutes PUD prophylaxis: pantoprazole DVT prophylaxis: lovenox Plan discussed with Dr. Devi , nursing staff, Total time spent on patient evaluation, chart review, assessment and plan, discussion discussion >35 minutes Plan discussed with: Patient, Other (RN) My Orders My Orders Orders - SARAH CARRILLO Procedure Category Date Status Time Urine Bacterial TALITA 01/23/25 In Process Culture 07:57 Ceftriaxone 1gm/50ml PHA 01/23/25 In Process (Rocephin) 09:00 Stool Wbc LAB 01/23/25 Logged 08:34 Stool Bacterial ATLITA 01/23/25 Logged Culture 08:34 Ova & Parasite Exam TALITA 01/23/25 Logged 08:34 Cd4/Cd8 Ratio Profile LAB 01/23/25 Logged 08:53 Acute Hepatitis Panel LAB 01/23/25 Logged 08:53 Citalopram Tablet PHA 01/23/25 In Process (Celexa Tablet) 09:00 Stool Occult Blood LAB 01/23/25 Logged 09:11 Lipase LAB 01/23/25 In Process 09:15 Magnesium Sulfate PHA 01/23/25 In Process 1gm/100ml 09:30 Dietary Evaluation Review Recommendations by RD: Increase Calorie Intake Date of Service: Jan 23, 2025 Billing Provider: MADISON DEVI MD Common Visit Codes: [id number] INP/OBS CARE(HIGH) SARAH CARRILLO RESIDENT Jan 23, 2025 09:46
[2025-01-23] MEDS: CITALOPRAM HYDROBR 20 MG TAB PO SCH (10:00)
[2025-01-23] MEDS: FAMOTIDINE (10MG/ML) 2ML VL IV SCH (10:29)
[2025-01-23 11:04] LABS: Triglycerides 85 mg/dL (< 150)
[2025-01-23 11:07] LABS: Cholesterol 97 mg/dL (< 200)
[2025-01-23 11:10] LABS: HDL Cholesterol 29 mg/dL (40-59)
[2025-01-23] MEDS ORDERED: BACTRIM 5MG/KG Q8HR PER RX 0 ML IV SCH (11:30)
[2025-01-23] MEDS: MAGNESIUM SULFATE 1GM/100ML 100 ML IV ONE (14:02)
[2025-01-23] MEDS: ENOXAPARIN SOD 40 MG/0.4 ML SYRINGE SC SCH (14:02)
--- NOTE | 2025-01-23 14:10 | DVHINCON2 ---
Date of service: Jan 23, 2025 Family History: Patient reports no known family medical history. Allergies: Coded Allergies: NO KNOWN ALLERGIES (Unverified , 01/22/25) Current Medications Current Medications Medications (Trade) Dose Ordered Sig/Joni Route PRN Reason Start Time Stop Time Status Last Admin Levofloxacin/ Dextrose 100 ml @ 100 mls/hr DAILY IV 01/23/25 10:00 01/23/25 07:59 DC Famotidine (Pepcid Injection) 20 mg DAILY IV 01/23/25 10:00 01/23/25 10:29 Ceftriaxone Sodium 50 ml @ 100 mls/hr DAILY@0900 IV 01/23/25 09:00 01/23/25 14:01 DC 01/23/25 10:28 Citalopram Hydrobromide (CeleXA TABLET) 40 mg DAILY PO 01/23/25 09:00 01/23/25 14:02 Enoxaparin Sodium (Lovenox) 40 mg DAILY SC 01/23/25 10:00 01/23/25 14:02 Trimethoprim/ Sulfamethoxazole 0 ml @ 0 mls/hr PER PHARMACY IV 01/23/25 11:30 Trimethoprim/ Sulfamethoxazole 20 ml/Dextrose 270 ml @ 173.333 mls/hr Q8HR IV 01/23/25 14:00 Vital Signs Vital Signs Date Time Temp Pulse Resp B/P (MAP) Pulse Ox O2 Delivery O2 Flow Rate FiO2 01/23/25 12:38 98.5 95 18 104/75 (85) 97 98.5 01/23/25 08:00 Room Air* 0 21 Labs/Diagnostic Data Labs Test 01/23/25 10:53 01/23/25 04:36 01/22/25 07:48 Range/Units Mean Platelet Volume 7.9 6.9-10.8 fL Neutrophils # (Auto) 1.6-8.6 10 ^3/uL Lymphocytes # (Auto) 0.4-5.4 10 ^3/uL Monocytes # (Auto) 0-1.3 10 ^3/uL Differential Total Cells Counted 100.0 100 Neutrophils % (Manual) 52 37.0-80.0 Band Neutrophils % (Manual) 0 Lymphocytes % (Manual) 11 10.0-50.0 Monocytes % (Manual) 6 0-12 Eosinophils % (Manual) 31 H 0-7 Basophils % (Manual) 0 0.0-2.0 Metamyelocytes % (manual) 0 Myelocytes % (Manual) 0 Promyelocytes % (Manual) 0 Blast Cells % (Manual) 0 Reactive Lymphocytes 0 Platelet Estimate Adequate Sodium Level 137 136-145 mmol/L Potassium Level 3.9 3.5-5.1 mmol/L Chloride Level 106 98-107 mmol/L Carbon Dioxide Level 23 20-31 mmol/L Anion Gap 8 5-15 Blood Urea Nitrogen 9 9-23 mg/dL Creatinine 0.93 0.700-1.30 mg/dL Glomerular Filtration Rate Calc 96 >90 mL/min BUN/Creatinine Ratio 9.7 L 10.0-20.0 Serum Glucose 78 74-106 mg/dL Hemoglobin A1c 5.8 H <5.7 % A1C Calcium Level 8.3 L 8.7-10.4 mg/dL Magnesium Level 1.7 1.6-2.6 mg/dL Total Bilirubin 0.4 0.2-1.0 mg/dL Aspartate Amino Transferase (AST) 17 13-40 U/L Alanine Aminotransferase (ALT) 21 7-40 U/L Alkaline Phosphatase 100 46-116 U/L Total Protein 7.9 5.7-8.2 g/dL Albumin 3.0 L 3.2-4.8 g/dL Triglycerides Level 85 < 150 mg/dL Cholesterol Level 97 < 200 mg/dL LDL Cholesterol 54 < 100 mg/dL HDL Cholesterol 29 L 40-59 mg/dL Lipase 29 12-53 U/L Vitamin B12 Level 252 211-911 pg/mL Vitamin D 25-Hydroxy 52.3 30.0-100 ng/mL Folic Acid 8.46 >5.38 ng/mL Thyroid Stimulating Hormone (TSH) 1.82 0.55-4.78 uIU/mL HIV (1&2) Antibody Deferred Negative Urine Color Yellow Yellow Urine Clarity Turbid H Clear Urine pH 6.5 5.0-9.0 Urine Specific [place] 1.021 1.001-1.035 Urine Protein Trace H Negative Urine Ketones Negative Negative Urine Blood Trace H Negative /uL Urine Nitrite 2+ H Negative Urine Bilirubin Negative Negative Urine Urobilinogen 2 H Negative mg/dL Urine Leukocyte Esterase 3+ Negative /uL Urine RBC 7 0 - 3 /hpf Urine Microscopic WBC 31 H 0-3 /HPF Urine Squamous Epithelial Cells Few <5 /hpf Urine Bacteria Few H None Seen /hpf Urine Glucose Normal Normal mg/dL Urine Opiates Screen Neg NEGATIVE Urine Fentanyl Screen Neg NEGATIVE Urine Barbiturates Screen Neg NEGATIVE Urine Phencyclidine Screen Neg NEGATIVE Urine Amphetamines Screen Pos NEGATIVE Urine Benzodiazepines Screen Neg NEGATIVE Urine Cocaine Screen Neg NEGATIVE Urine Cannabinoids Screen Neg NEGATIVE Microbiology Date/Time Source Procedure Growth Status 01/22/25 07:45 Stool Clostridium difficile Toxin Assay - Final Complete Problems(with codes): (1) Headache (2) HIV disease (3) Acute colitis (4) Infectious colitis (5) UTI (urinary tract infection) (6) Methamphetamine abuse Plan/Recommendation ASSESSMENT AND PLAN: ID Problem List: -HIV infection; non-adherent to therapy; viral load unknown; CD4 pending -Watery diarrhea with abdominal pain, nausea/vomiting; CT with distal colonic/rectal mucosal thickening (infectious vs inflammatory colitis vs underdistension) -Headache in the setting of untreated HIV (OI rule-out indicated) -Right middle and lower lobe pulmonary infiltrates (pneumonia vs other) -Urinalysis consistent with cystitis/UTI (LE 3+, nitrites 2+, WBC 31/HPF, few bacteria) -Mild tachycardia; oxygenation acceptable on room air -Substance use: alcohol and amphetamines; no tobacco -Unhoused; occasionally stays with friend in [place] -MSM with recent unknown sexual contacts -Incidental CT finding: sclerosis of bilateral femoral heads, suggestive of avascular necrosis; no articular collapse noted Assessment This is a 54-year-old male with known HIV (not on ART) presenting with headache, watery diarrhea, abdominal pain, nausea, and vomiting. He is a poor historian. Initial labs show WBC 7.2, Hgb 11.9, Plt 319; BMP notable for Cr 0.96, BUN 12, Na 138; LFTs within normal limits. UA suggests cystitis/UTI. CT abdomen/pelvis (non-contrast) shows distal colon/rectal mucosal thickening (infectious vs inflammatory colitis vs underdistension), right middle and lower lobe infiltrates, mild bladder wall thickening, and bilateral femoral head sclerosis suggestive of avascular necrosis. C. difficile testing negative. He is mildly tachycardic; oxygen saturation mid-90s on room air. Given untreated HIV and symptoms (headache, diarrhea), opportunistic infections remain a concern pending CD4/viral load. Plan: -Diagnostics: -HIV staging: CD4 count and HIV viral load pending (follow up). -PICTURE FRAMER evaluation for OI given headache and untreated HIV: MRI brain to assess for cryptococcoma and toxoplasmosis. -Stool testing: stool culture, ova and parasites; consider expanded GI panel ([facility]) if CD4 <100. -Microbiology: blood cultures, urine culture. -Serologies: CMV antibodies, cryptococcal antibodies/antigen, and Toxoplasma antibodies; additional workup guided by CD4/viral load. -TB evaluation prior to ART initiation as clinically indicated. -Antimicrobial therapy: -Patient was started on levofloxacin and metronidazole (Flagyl) on admission. -Continue metronidazole for colitis coverage per current plan. -Consider TMP-SMX (Bactrim) if concern for PJP arises; patient is only minimally hypoxic and not currently requiring oxygen. No need for ceftriaxone per current assessment. -Consider addition of ciprofloxacin if diarrhea worsens (empiric consideration noted). -HIV management: -Hold initiation of ART until cryptococcal infection and TB are ruled out. -Supportive care: -Fluid resuscitation and electrolyte monitoring/repletion given frequent bowel movements and risk for depletion. -Infection control: -Isolation Precautions: standard. -Disposition/Follow-up: -Monitor vital signs, oxygenation, fluid status, and clinical response. -Adjust antimicrobial and diagnostic plan based on pending results (CD4, viral load, cultures, serologies, MRI findings). Assessment and plan was discussed with the patient as written above. Plan is subject to change pending incorporation of new incoming information/diagnostics. Updates may be added as addendum at the bottom (or top) of this note. History: The patients chart and available medications were reviewed; the patient was seen and examined. History obtained from: patient (poor historian)Minal Elam (Manuel) is a 54-year-old male with known HIV (noncompliant with any regimen) presenting with headache and watery stools with abdominal pain, nausea, and vomiting. He is unhoused but sometimes stays with a friend in [place]. He reports alcohol and amphetamine use; denies tobacco use. He reports MSM sexual contacts with recent unknown partners. No known sick contacts. No known drug allergies. Review of Systems: A complete 10-system review of systems was completed and negative except as noted below or in the HPI. -Constitutional: Denies chills and weight loss; fever up to 100F reported. -HEENT: Reports headache; denies vision or hearing changes noted. -Respiratory: Denies respiratory complaints in ROS; exam with clear lungs. -Cardiovascular: No specific complaints documented; exam with mild tachycardia. -Gastrointestinal: Reports watery diarrhea, abdominal pain, nausea, vomiting. -Genitourinary: No dysuria reported in ROS; UA suggests cystitis. -Musculoskeletal: Not discussed in ROS. -Skin: Denies rash. -Neurological: Reports headache; no syncope reported. -Psychiatric: Not discussed. Past Medical History: -HIV infection (non-adherent to therapy) Other past medical conditions: Not provided in transcript. Past Surgical History: -Not provided in transcript. Home Medications: -Not provided in transcript. Allergies: -No known drug allergies. Family History: -Not provided in transcript. Social History: -Housing: Unhoused; sometimes stays with friend (Matilde Corbin). -Tobacco: Denies smoking. -Alcohol: Uses alcohol. -Drugs: Uses amphetamines. -Sexual history: MSM; recent unknown sexual contacts. -Sick contacts: Denied. Social Determinants of Health: Not provided in transcript. Objective: Vital Signs on Arrival: -Temp: 97.9100 F (per transcript) -BP: 114/82 mmHg -Pulse: approximately 100 (per transcript) -Resp: 18/min -SpO2: 96% on room air (per transcript) Most Recent Vital Signs: -Temp: 98.8 F -BP: Not provided in transcript -Pulse: 101/min -Resp: 16/min -SpO2: 95% on room air Admission Weight: -Not provided in transcript. BMI: Not provided in transcript. Physical Exam: General: NAD Neck: Supple. No masses. HEENT: PERRL. Normal lids and conjunctiva. Moist mucous membranes. Oropharynx without lesions, exudates, or excessive erythema. Normal appearance of the external aspects of the nose and ears. Heart: Mild tachycardia. Regular rhythm. No lower extremity edema noted. Lungs: Normal respiratory effort. Clear to auscultation bilaterally. No wheezes. No crackles. Abdomen: Soft. Non-tender. Non-distended. No masses or abdominal hernia. Msk: No digital cyanosis. Strength 5/5 in upper extremities. No lower extremity strength. Skin: Warm and dry, no rashes. Neuro: Alert and oriented. No facial droop or slurred speech. Extra- ocular movements intact. Sensation intact to soft touch in all 4 limbs. Psych: Appropriate mood. Full affect. Oriented to person, place, time, and situation. Lines: -Not provided in transcript. Diagnostic Studies: Available diagnostic studies were reviewed personally. Significant results summarized below and addressed in the Assessment and Plan. -Laboratory Data: -WBC 7.2 x10^3/L; Hgb 11.9 g/dL; Platelets 319 x10^3/L -Sodium 138 mmol/L; BUN 12 mg/dL; Creatinine 0.96 mg/dL -AST 21 U/L; ALT 26 U/L; Total bilirubin 0.3 mg/dL -Urinalysis: few bacteria; WBC 31/HPF; leukocyte esterase 3+; nitrites 2+ -C. difficile testing: negative -CD4: pending -HIV viral load: unknown/pending -HIV antibody testing: pending -Hepatitis C antibody and hepatitis B core antibody: pending Pertinent Imaging: -CT Abdomen/Pelvis without contrast: -Mucosal thickening of distal colon and rectum (underdistension vs infectious vs inflammatory colitis) -Right middle and lower lobe infiltrates -Sclerosis of bilateral femoral heads suggestive of avascular necrosis; no articular collapse -Mild urinary bladder wall thickening, possibly cystitis Electronically signed by: Sunday Donato MD, 01/23/2025 Plan discussed with: Patient SUNDAY DONATO MD Jan 23, 2025 14:10
--- NOTE | 2025-01-23 14:20 | DVH ---
CHEST RADIOGRAPH Indication: pneumomediastenum/PNA Technique: Single frontal view of the chest was obtained Comparison: None FINDINGS: Lines and Tubes: None Lungs: No focal consolidation. Mild pulmonary vascular congestion. Pleura: No effusion. No pneumothorax. Cardiomediastinal contours: Unremarkable Bones: No acute osseous abnormality. IMPRESSION: 1. No sizable pneumothorax or pneumomediastinum. 2. No focal consolidations. Mild pulmonary vascular congestion.
[2025-01-23 15:56] LABS: RAPID PLASMA REAGIN QUANT 1:8 Titer (NONREACTIVE)
[2025-01-23] MEDS: SULFAMETH TRIMETH IV SCH (16:37)
[2025-01-23] MEDS: D5W 5% IV SCH (16:37)
[2025-01-23] MEDS: PENICILLIN G POTASSIUM 4,000,000 UNITS in D5W 5% 50 ML IV SCH (20:44)
[2025-01-24] VITALS (8 sets, daily range): BP systolic 91–122; BP diastolic 65–85; PULSE 80–89; RESP 17–20; TEMP 98–98.8; O2SAT 0–96
[2025-01-24 05:50] LABS: Hematocrit 32.2 % (41.0-53.0); Hemoglobin 10.9 g/dL (13.5-17.5); Mean Corpuscular Hemoglobin 28.9 pg (28.0-32.0); Mean Corpuscular Volume 85.6 fL (80.0-100.0)
[2025-01-24 06:12] LABS: Alanine Aminotransferase 17 U/L (7-40); Alkaline Phosphatase 101 U/L (46-116); Anion Gap 8 (5-15); BUN/Creatinine Ratio 10.0 (10.0-20.0); Carbon Dioxide 22 mmol/L (20-31); Chloride 105 mmol/L (98-107); Glucose 76 mg/dL (74-106); Magnesium 2.2 mg/dL (1.6-2.6); Potassium 4.0 mmol/L (3.5-5.1)
[2025-01-24 06:13] LABS: Blood Urea Nitrogen 9 mg/dL (9-23); Calcium 8.1 mg/dL (8.7-10.4); Sodium 135 mmol/L (136-145); Total Protein 8.2 g/dL (5.7-8.2)
[2025-01-24 06:14] LABS: Albumin 3.1 g/dL (3.2-4.8); Bilirubin, Total 0.3 mg/dL (0.2-1.0)
[2025-01-24 06:23] LABS: Total Cells Counted 100.0 (100)
[2025-01-24] MEDS: SODIUM CHLORIDE 0.9% 1,000 ML IV ONE (06:38)
[2025-01-24 10:48] LABS: Hepatitis B Surface Antigen Negative (Negative); Hepatitis C Antibody Negative (Negative)
[2025-01-24 11:07] LABS: CD4/CD8 Ratio 0.10 (0.92-3.72)
[2025-01-24] MEDS ORDERED: VANCOMYCIN PER PHARMACY 0 MG IV SCH (12:15)
--- NOTE | 2025-01-24 12:42 | DVHPNRES ---
Progress Note Date Seen: Jan 24, 2025 Resident Creating Document: SARAH CARRILLO RESIDENT Medical Necessity Reason Pt with a Central, PICC or Fol: No Subjective Review of Systems patient is 54 years old male with a history of HIV for 20 years noncompliant with the medication, not taking medication for last 4 years as it ran out, depression came with a complaint of abdominal pain and diarrhea. As per patient he has been having Bloody diarrhea couple of episode every day for last one weeks. patient also endorsed abdominal pain crampy, continuous in nature, 8/10 for last 1 month. On further inquiry patient also endorsed nausea and vomiting x2, nonbloody. Patient reported feeling chills and fever but did not record temperature. Patient reported he is not taking his HIV medication which ran out 4 month before because of the financial issue. Denied any rash, chest pain, shortness of breath acute joint redness or swelling dysarthria or change in vision. Denied any colonoscopy or endoscopy before. Initial lab workup revealed WBC 7.2, hemoglobin 11.9, RDW 15.9, eosinophil 45, neutrophil 35. A1c 5.6, UDS positive for methamphetamine. urinalysis revealed leukocyte esterase 3+, nitrite 3+, WBC 31, bacteria many. CT abdomen and pelvis revealed-1. Mucosal thickening of the distal sigmoid colon and rectum may be due to underdistention or represent infectious/inflammatory colitis. Right middle and lower lobe infiltrates. Serpiginous sclerosis in the bilateral femoral heads suggesting avascular necrosis. No articular collapse. Mild wall thickening of the urinary bladder may be related to underdistention. Cystitis is not excluded. PMH- HIV, depression PSH- none Allergy- NKDA Personal History/ Social History- denies smoking, denies alcoholism, use amphetamine, lives with a friend/? Homeless ROS Cardiovascular- deny acute chest pain or shortness of breath or cough or palpitation Respiratory denies cough or short of breath or wheezing Gastrointestinal- abdominal pain, nausea or vomiting Musculoskeletal-denies acute joint swelling or tenderness or redness Neurological- denies acute dysarthria, dysphagia, change in vision Psychiatry- denies depression or SI or HI Skin- denies acute rash or purpura Patient was seen today at bedside, labs and chart reviewed. % of CD4 cell 3.9, absolute CD4 cell count 43, T lymphocytes CD4/CD8 ratio 0.10, % of CD 8 cells 39.3, absolute CD8 432. Patient reported ongoing abdominal pain, had loose motion today. Stool for occult blood test negative so far. Blood has been positive for Gram-positive cocci in cluster, ordered linezolid. Ordered echo 2D to rule out endocarditis. Pending serologies report except troponin. Urine culture positive for more than [id number] CFU per mL Gram-negative rods. Plan is to continue other IV antibiotic. Patient was seen by infectious disease, recommendation reviewed and appreciated. Objective vital signs Vital Sign Date Time Temp Pulse Resp B/P (MAP) Pulse Ox O2 Delivery O2 Flow Rate FiO2 01/24/25 09:00 98.0 81 18 122/85 (97) 96 98.0 01/24/25 08:00 Room Air* 0 21 Total Intake and Output 01/23/25 01/23/25 01/24/25 15:00 23:00 07:00 Intake Total 1350 ml 920 ml Output Total 1400 ml Balance 1350 ml -480 ml medications Current Medications Medications Dose Ordered Sig/Joni Route Start Time Stop Time Status Last Admin Dose Admin Metronidazole 100 ml @ 100 mls/hr Q8HR IV 01/22/25 14:00 01/24/25 05:36 100 MLS/HR Sodium Chloride 1,000 ml @ 120 mls/hr Q8H20M IV 01/22/25 09:45 01/24/25 09:50 120 MLS/HR Acetaminophen/ Hydrocodone Bitart 1 tab Q4HP PRN PO 01/22/25 09:45 Ondansetron HCl 4 mg Q4HP PRN IV 01/22/25 09:45 Acetaminophen 650 mg Q6HP PRN PO 01/22/25 09:45 Morphine Sulfate 2 mg Q4HPRN PRN IV 01/22/25 09:45 Famotidine 20 mg DAILY IV 01/23/25 10:00 01/24/25 09:49 20 MG Citalopram Hydrobromide 40 mg DAILY PO 01/23/25 09:00 01/24/25 09:50 40 MG Enoxaparin Sodium 40 mg DAILY SC 01/23/25 10:00 01/24/25 09:50 40 MG Trimethoprim/ Sulfamethoxazole 0 ml @ 0 mls/hr PER PHARMACY IV 01/23/25 11:30 Trimethoprim/ Sulfamethoxazole 20 ml/Dextrose 270 ml @ 173.333 mls/hr Q8HR IV 01/23/25 14:00 01/24/25 06:00 173.333 MLS/HR Penicillin G Potassium [id number] units/Dextrose 50 ml @ 100 mls/hr Q4HR IV 01/23/25 18:00 01/24/25 09:51 100 MLS/HR Vancomycin HCl 0 ml @ 0 mls/hr PER PHARMACY IV 01/24/25 12:15 UNV Examination General examination- malnourished HEENT- PEERLA, no acute nasal discharge Cardiovascular- S1-S2 audible, rate and rhythm regular, no murmur Respiratory- CTAB, no wheeze or rhonchi Gastrointestinal- mild diffuse abdominal tenderness present, bowel sound+. Nondistended Musculoskeletal-no acute joint swelling or tenderness or redness Lower extremity- no leg edema Neurological- cranial nerves intact, no acute dysarthria or dysphagia Psychiatry- denies depression or SI or HI Skin- no acute rash or purpura laboratory and microbiology Laboratory Tests 01/24/25 04:45 Test 01/24/25 04:45 Range/Units Serum Glucose 76 74-106 mg/dL Microbiology Date/Time Source Procedure Growth Status 01/23/25 14:24 Blood Blood Culture - Preliminary Resulted 01/22/25 07:48 Voided Urine Urine Culture - Preliminary Resulted 01/22/25 07:45 Stool Clostridium difficile Toxin Assay - Final Complete Problem List/Assessment/Plan Problem List/Assessment/Plan Assessment and plan # acute intractable nausea and vomiting and abdominal pain likely due to acute sigmoid colitis and proctitis # acute gastroenteritis likely due to above - CT abdomen and pelvis revealed-1. Mucosal thickening of the distal sigmoid colon and rectum may be due to underdistention or represent infectious/inflammatory colitis. -negative for C diff - ordered stool for ova, parasite, WBC, - stool for occult blood test-negative so far - ordered stool culture -blood culture Gram-positive cocci in cluster so far - on IV normal saline -continue penicillin as prescribed -continue metronidazole as prescribed -continue Bactrim IV as prescribed -ordered IV linezolid - on IV metronidazole - monitor vitals -patient was seen by infectious disease -commended-ordered chlamydia/gonococcal, troponin pallidum, QuantiFERON TB gold test, toxoplasma Wagner test, cryptococcal antibody, CMV immunoglobulin, brain head without contrast. -ordered echo 2D to rule out endocarditis # suspected pneumonia, PCP due to history of HIV - CT scan- Right middle and lower lobe infiltrates -continue current IV antibiotics as prescribed -patient is seen by infectious disease # syphilis -treponema pallidum antibody reactive -RPR reactive -RPR titer 1 is to 8 -continue penicillin as prescribed -continue monitoring clinically #UTI -urinalysis revealed leukocyte esterase 3+, nitrite 3+, WBC 31, bacteria many -urine culture positive for more than [id number] CFU per mL Gram-negative rods - CT abdomen and pelvis-Mild wall thickening of the urinary bladder may be related to under distention. -continue current antibiotic # HIV, possible AIDS - % of CD4 cell 3.9, absolute CD4 cell count 43, T lymphocytes CD4/CD8 ratio 0.10, % of CD 8 cells 39.3, absolute CD8 432. - ordered HIV viral load -continue current treatment # Substance abuse, UDS positive for methamphetamine - patient was counseled about the effect of substance abuse on health # depression - restarted home medication citalopram # Serpiginous sclerosis in the bilateral femoral heads suggesting avascular necrosis-CT scan finding -follow up outpatient with the primary care physician Goals of care, Code status full code; discussed with >15 minutes PUD prophylaxis: pantoprazole DVT prophylaxis: lovenox Plan discussed with Dr. Devi , nursing staff, Total time spent on patient evaluation, chart review, assessment and plan, discussion discussion >35 minutes Plan discussed with: Patient, Other (RN) My Orders My Orders Orders - SARAH CARRILLO RESIDENT Procedure Category Date Status Time Full Liq Diet DIET 01/24/25 Transmitted Breakfast Communication Order ORDERS 01/24/25 Transmitted 07:02 Complete Blood Count LAB 01/25/25 Verified 04:00 Comprehensive LAB 01/25/25 Verified Metabolic Panel 04:00 Magnesium LAB 01/25/25 Verified 04:00 Vancomycin PHA 01/24/25 In Process 1.5gm/250ml 12:30 Vancomycin Per PHA 01/24/25 Pending Pharmacy 12:15 Echo 2d Mode Cardiac US 01/24/25 Logged DOP 12:06 Dietary Evaluation Review Recommendations by RD: Increase Calorie Intake Date of Service: Jan 24, 2025 Billing Provider: MADISON DEVI MD Common Visit Codes: [id number] INP/OBS CARE(HIGH) SARAH CARRILLO RESIDENT Jan 24, 2025 12:42 DUNCANZULEYMA WHITAKER Jan 24, 2025 16:37 MADISON DEVI MD Jan 28, 2025 20:27
[2025-01-24] MEDS: VANCOMYCIN 1.5GM/250ML 250 ML IV ONE (12:48)
[2025-01-24 13:07] LABS: Hematocrit 33.0 % (37.5-51.0); Hemoglobin 10.8 g/dL (13.0-17.7); MCH 28.2 pg (26.6-33.0); MCHC 32.7 g/dL (31.5-35.7); MCV 86 fL (79-97); RBC 3.83 x10E6/uL (4.14-5.80); RDW 14.5 % (11.6-15.4); WBC 5.6 x10E3/uL (3.4-10.8)
[2025-01-24] MEDS: LINEZOLID 600MG/300ML 300 ML IV SCH (20:02)
--- NOTE | 2025-01-24 23:59 | DVHPN2 ---
Consult Progress Note Date Seen: Jan 24, 2025 Subjective Patient reports: Feels better (gpc in blood, start on vancomycin) Objective vital signs Vital Sign Date Time Temp Pulse Resp B/P (MAP) Pulse Ox O2 Delivery O2 Flow Rate FiO2 01/24/25 21:00 98.7 87 17 110/82 (91) 95 98.7 01/24/25 20:00 Room Air* 0 21 Total Intake and Output 01/23/25 01/23/25 01/24/25 15:00 23:00 07:00 Intake Total 1350 ml 920 ml Output Total 1400 ml Balance 1350 ml -480 ml medications Current Medications Medications Dose Ordered Sig/Joni Route Start Time Stop Time Status Last Admin Dose Admin Metronidazole 100 ml @ 100 mls/hr Q8HR IV 01/22/25 14:00 01/24/25 20:34 100 MLS/HR Sodium Chloride 1,000 ml @ 120 mls/hr Q8H20M IV 01/22/25 09:45 01/24/25 09:50 120 MLS/HR Acetaminophen/ Hydrocodone Bitart 1 tab Q4HP PRN PO 01/22/25 09:45 Ondansetron HCl 4 mg Q4HP PRN IV 01/22/25 09:45 Acetaminophen 650 mg Q6HP PRN PO 01/22/25 09:45 Morphine Sulfate 2 mg Q4HPRN PRN IV 01/22/25 09:45 Famotidine 20 mg DAILY IV 01/23/25 10:00 01/24/25 09:49 20 MG Citalopram Hydrobromide 40 mg DAILY PO 01/23/25 09:00 01/24/25 09:50 40 MG Enoxaparin Sodium 40 mg DAILY SC 01/23/25 10:00 01/24/25 09:50 40 MG Trimethoprim/ Sulfamethoxazole 0 ml @ 0 mls/hr PER PHARMACY IV 01/23/25 11:30 Trimethoprim/ Sulfamethoxazole 20 ml/Dextrose 270 ml @ 173.333 mls/hr Q8HR IV 01/23/25 14:00 01/24/25 21:12 173.333 MLS/HR Penicillin G Potassium [id number] units/Dextrose 50 ml @ 100 mls/hr Q4HR IV 01/23/25 18:00 01/24/25 21:12 100 MLS/HR Linezolid 300 ml @ 150 mls/hr Q12H IV 01/24/25 20:00 01/24/25 20:02 150 MLS/HR laboratory and microbiology Laboratory Tests 01/24/25 04:45 Test 01/24/25 04:45 Range/Units Serum Glucose 76 74-106 mg/dL Problem List/Assessment/Plan Problems(with codes): (1) Bacteremia (2) AIDS (3) Infectious colitis (4) Methamphetamine abuse Problem List/Assessment/Plan Plan/Recommendation ASSESSMENT AND PLAN: ID Problem List: - HIV/AIDS -HIV infection; non-adherent to therapy; viral load unknown; CD4 pending -Watery diarrhea with abdominal pain, nausea/vomiting; CT with distal colonic/rectal mucosal thickening (infectious vs inflammatory colitis vs underdistension) -Headache in the setting of untreated HIV (OI rule-out indicated) -Right middle and lower lobe pulmonary infiltrates (pneumonia vs other) -Urinalysis consistent with cystitis/UTI (LE 3+, nitrites 2+, WBC 31/HPF, few bacteria) -Mild tachycardia; oxygenation acceptable on room air -Substance use: alcohol and amphetamines; no tobacco -Unhoused; occasionally stays with friend in [place] -MSM with recent unknown sexual contacts -Incidental CT finding: sclerosis of bilateral femoral heads, suggestive of avascular necrosis; no articular collapse noted - GPC bacteremia Assessment This is a 54-year-old male with known HIV (not on ART) presenting with headache, watery diarrhea, abdominal pain, nausea, and vomiting. He is a poor historian. Initial labs show WBC 7.2, Hgb 11.9, Plt 319; BMP notable for Cr 0.96, BUN 12, Na 138; LFTs within normal limits. UA suggests cystitis/UTI. CT abdomen/pelvis (non-contrast) shows distal colon/rectal mucosal thickening (infectious vs inflammatory colitis vs underdistension), right middle and lower lobe infiltrates, mild bladder wall thickening, and bilateral femoral head sclerosis suggestive of avascular necrosis. C. difficile testing negative. He is mildly tachycardic; oxygen saturation mid-90s on room air. Given untreated HIV and symptoms (headache, diarrhea), opportunistic infections remain a concern pending CD4/viral load. cd4 count 01/24: ongoing diarrhea, rxed symtuza, poor compliance, positive for syphilis 1:8 titer (no treatment hx locally per [facility]) Plan: - will need to treat syphilis as presumed late latent disease (acquire Lumbar puncture if headaches worsen (protein, cell count, glucose, bacterial culture, VDRL)): 100mg doxycycline po bid x 28 days - can stop IV penicillin - agree w/ vancomycin for GPC bacteremia, check TTE and acute hepatitis panel given drug use history - diarrhea is chronic, ensure electrolytes are repleted - will need stool culture, c.diff testing, stool O&P x3, CMV ab serology - can start Biktarvy for now to improve compliance and reduce HIV viral load -Diagnostics: - check genosure to determine appropriate ART regimen -HIV staging: CD4 count and HIV viral load pending (follow up). -VOCATIONAL COUNSELOR evaluation for OI given headache and untreated HIV: MRI brain to assess for cryptococcoma and toxoplasmosis. -Stool testing: stool culture, ova and parasites; consider expanded GI panel (BioFire) if CD4 <100. -Microbiology: blood cultures, urine culture. -Serologies: CMV antibodies, cryptococcal antibodies/antigen, and Toxoplasma antibodies; additional workup guided by CD4/viral load. -TB evaluation prior to ART initiation as clinically indicated. -Antimicrobial therapy: -Patient was started on levofloxacin and metronidazole (Flagyl) on admission. -Continue metronidazole for colitis coverage per current plan. -Consider TMP-SMX (Bactrim) if concern for PJP arises; patient is only minimally hypoxic and not currently requiring oxygen. No need for ceftriaxone per current assessment. -Supportive care: -Fluid resuscitation and electrolyte monitoring/repletion given frequent bowel movements and risk for depletion. -Infection control: -Isolation Precautions: standard. -Disposition/Follow-up: -Monitor vital signs, oxygenation, fluid status, and clinical response. -Adjust antimicrobial and diagnostic plan based on pending results (CD4, viral load, cultures, serologies, MRI findings). Assessment and plan was discussed with the patient as written above. Plan is subject to change pending incorporation of new incoming information/diagnostics. Updates may be added as addendum at the bottom (or top) of this note. Physical Exam: General: NAD Neck: Supple. No masses. HEENT: PERRL. Normal lids and conjunctiva. Moist mucous membranes. Oropharynx without lesions, exudates, or excessive erythema. Normal appearance of the external aspects of the nose and ears. Heart: Mild tachycardia. Regular rhythm. No lower extremity edema noted. Lungs: Normal respiratory effort. Clear to auscultation bilaterally. No wheezes. No crackles. Abdomen: Soft. Non-tender. Non-distended. No masses or abdominal hernia. Msk: No digital cyanosis. Strength 5/5 in upper extremities. No lower extremity strength. Skin: Warm and dry, no rashes. Neuro: Alert and oriented. No facial droop or slurred speech. Extra- ocular movements intact. Sensation intact to soft touch in all 4 limbs. Psych: Appropriate mood. Full affect. Oriented to person, place, time, and situation. Plan discussed with: Patient Dietary Evaluation Review Recommendations by RD: Increase Calorie Intake SUNDAY DONATO MD Jan 24, 2025 23:59
[2025-01-25] VITALS (8 sets, daily range): BP systolic 97–112; BP diastolic 68–81; PULSE 73–80; RESP 17–18; TEMP 97.5–98.3; O2SAT 0–99
[2025-01-25] MEDS ORDERED: VANCOMYCIN 1.5GM/250ML 250 ML IV SCH (01:00)
[2025-01-25 05:31] LABS: Hematocrit 31.7 % (41.0-53.0); Hemoglobin 10.8 g/dL (13.5-17.5); Mean Corpuscular Hemoglobin 29.2 pg (28.0-32.0); Mean Corpuscular Volume 85.4 fL (80.0-100.0)
[2025-01-25] MEDS: HYDROcodone-ACET 5/325MG TAB PO PRN (05:37)
[2025-01-25 05:58] LABS: Alanine Aminotransferase 23 U/L (7-40); Alkaline Phosphatase 98 U/L (46-116); Anion Gap 8 (5-15); BUN/Creatinine Ratio 6.9 (10.0-20.0); Carbon Dioxide 21 mmol/L (20-31); Chloride 105 mmol/L (98-107); Glucose 78 mg/dL (74-106); Magnesium 2.1 mg/dL (1.6-2.6); Potassium 4.2 mmol/L (3.5-5.1)
[2025-01-25 05:59] LABS: Albumin 3.0 g/dL (3.2-4.8); Bilirubin, Total 0.2 mg/dL (0.2-1.0); Blood Urea Nitrogen 7 mg/dL (9-23); Calcium 8.3 mg/dL (8.7-10.4); Sodium 134 mmol/L (136-145); Total Protein 8.3 g/dL (5.7-8.2)
[2025-01-25 06:11] LABS: Total Cells Counted 100.0 (100)
[2025-01-25 08:07] LABS: HIV 1 Antibody Reactive (Non Reactive); HIV 2 Antibody Non Reactive (Non Reactive)
[2025-01-25] MEDS ORDERED: VANCOMYCIN PER PHARMACY 0 MG IV SCH (10:00)
--- NOTE | 2025-01-25 10:07 | DVHPN2 ---
Consult Progress Note Date Seen: Jan 25, 2025 Subjective Patient reports: Feels better (ongoing intermittent abdominal pain) Objective vital signs Vital Sign Date Time Temp Pulse Resp B/P (MAP) Pulse Ox O2 Delivery O2 Flow Rate FiO2 01/25/25 09:03 98.2 74 18 104/73 (83) 95 98.2 01/24/25 20:00 Room Air* 0 21 Total Intake and Output 01/24/25 01/24/25 01/25/25 15:00 23:00 07:00 Intake Total 720 ml 2140 ml 350 ml Output Total 1500 ml 990 ml Balance 720 ml 640 ml -640 ml medications Current Medications Medications Dose Ordered Sig/Joni Route Start Time Stop Time Status Last Admin Dose Admin Metronidazole 100 ml @ 100 mls/hr Q8HR IV 01/22/25 14:00 01/25/25 04:12 100 MLS/HR Sodium Chloride 1,000 ml @ 120 mls/hr Q8H20M IV 01/22/25 09:45 01/24/25 09:50 120 MLS/HR Acetaminophen/ Hydrocodone Bitart 1 tab Q4HP PRN PO 01/22/25 09:45 01/25/25 05:37 1 TAB Ondansetron HCl 4 mg Q4HP PRN IV 01/22/25 09:45 Acetaminophen 650 mg Q6HP PRN PO 01/22/25 09:45 Morphine Sulfate 2 mg Q4HPRN PRN IV 01/22/25 09:45 Famotidine 20 mg DAILY IV 01/23/25 10:00 01/24/25 09:49 20 MG Citalopram Hydrobromide 40 mg DAILY PO 01/23/25 09:00 01/24/25 09:50 40 MG Enoxaparin Sodium 40 mg DAILY SC 01/23/25 10:00 01/24/25 09:50 40 MG Trimethoprim/ Sulfamethoxazole 0 ml @ 0 mls/hr PER PHARMACY IV 01/23/25 11:30 Trimethoprim/ Sulfamethoxazole 20 ml/Dextrose 270 ml @ 173.333 mls/hr Q8HR IV 01/23/25 14:00 01/25/25 05:38 173.333 MLS/HR Penicillin G Potassium [id number] units/Dextrose 50 ml @ 100 mls/hr Q4HR IV 01/23/25 18:00 01/25/25 04:12 100 MLS/HR Linezolid 300 ml @ 150 mls/hr Q12H IV 01/24/25 20:00 01/25/25 08:21 150 MLS/HR laboratory and microbiology Laboratory Tests 01/25/25 04:35 Test 01/25/25 04:35 Range/Units Serum Glucose 78 74-106 mg/dL Problem List/Assessment/Plan Problem List/Assessment/Plan Plan/Recommendation ASSESSMENT AND PLAN: ID Problem List: - HIV/AIDS -HIV infection; non-adherent to therapy; viral load unknown; CD4 pending -Watery diarrhea with abdominal pain, nausea/vomiting; CT with distal colonic/rectal mucosal thickening (infectious vs inflammatory colitis vs underdistension) -Headache in the setting of untreated HIV (OI rule-out indicated) -Right middle and lower lobe pulmonary infiltrates (pneumonia vs other) -Urinalysis consistent with cystitis/UTI (LE 3+, nitrites 2+, WBC 31/HPF, few bacteria) -Mild tachycardia; oxygenation acceptable on room air -Substance use: alcohol and amphetamines; no tobacco -Unhoused; occasionally stays with friend in [place] -MSM with recent unknown sexual contacts -Incidental CT finding: sclerosis of bilateral femoral heads, suggestive of avascular necrosis; no articular collapse noted - GPC bacteremia Assessment This is a 54-year-old male with known HIV (not on ART) presenting with headache, watery diarrhea, abdominal pain, nausea, and vomiting. He is a poor historian. Initial labs show WBC 7.2, Hgb 11.9, Plt 319; BMP notable for Cr 0.96, BUN 12, Na 138; LFTs within normal limits. UA suggests cystitis/UTI. CT abdomen/pelvis (non-contrast) shows distal colon/rectal mucosal thickening (infectious vs inflammatory colitis vs underdistension), right middle and lower lobe infiltrates, mild bladder wall thickening, and bilateral femoral head sclerosis suggestive of avascular necrosis. C. difficile testing negative. He is mildly tachycardic; oxygen saturation mid-90s on room air. Given untreated HIV and symptoms (headache, diarrhea), opportunistic infections remain a concern pending CD4/viral load. cd4 count 01/24: ongoing diarrhea, rxed symtuza, poor compliance, positive for syphilis 1:8 titer (no treatment hx locally per [facility]) 11 Plan: - PATIENT IS NOT A TB RULE OUT. no respiratory or CXR findings noted. no isolation needed. quantiferon tb is HIV ART management. please continue with brain MRI - repeat blood cultures - will need to treat syphilis as presumed late latent disease (acquire Lumbar puncture if headaches worsen (protein, cell count, glucose, bacterial culture, VDRL)): 100mg doxycycline po bid x 28 days - can stop IV penicillin - agree w/ vancomycin for GPC bacteremia, check TTE and acute hepatitis panel given drug use history - diarrhea is chronic, ensure electrolytes are repleted - will need stool culture, c.diff testing, stool O&P x3, CMV ab serology - can start Biktarvy for now to improve compliance and reduce HIV viral load -Diagnostics: - check genosure to determine appropriate ART regimen -HIV staging: CD4 count and HIV viral load pending (follow up). -EDITORIAL INTERN evaluation for OI given headache and untreated HIV: MRI brain to assess for cryptococcoma and toxoplasmosis. -Stool testing: stool culture, ova and parasites; consider expanded GI panel (BioFire) if CD4 <100. -Microbiology: blood cultures, urine culture. -Serologies: CMV antibodies, cryptococcal antibodies/antigen, and Toxoplasma antibodies; additional workup guided by CD4/viral load. -TB evaluation prior to ART initiation as clinically indicated. -Antimicrobial therapy: -Patient was started on levofloxacin and metronidazole (Flagyl) on admission. -Continue metronidazole for colitis coverage per current plan. -Consider TMP-SMX (Bactrim) if concern for PJP arises; patient is only minimally hypoxic and not currently requiring oxygen. No need for ceftriaxone per current assessment. -Supportive care: -Fluid resuscitation and electrolyte monitoring/repletion given frequent bowel movements and risk for depletion. -Infection control: -Isolation Precautions: standard. -Disposition/Follow-up: -Monitor vital signs, oxygenation, fluid status, and clinical response. -Adjust antimicrobial and diagnostic plan based on pending results (CD4, viral load, cultures, serologies, MRI findings). Assessment and plan was discussed with the patient as written above. Plan is subject to change pending incorporation of new incoming information/diagnostics. Updates may be added as addendum at the bottom (or top) of this note. Physical Exam: General: NAD Neck: Supple. No masses. HEENT: PERRL. Normal lids and conjunctiva. Moist mucous membranes. Oropharynx without lesions, exudates, or excessive erythema. Normal appearance of the external aspects of the nose and ears. Heart: Mild tachycardia. Regular rhythm. No lower extremity edema noted. Lungs: Normal respiratory effort. Clear to auscultation bilaterally. No wheezes. No crackles. Abdomen: Soft. Non-tender. Non-distended. No masses or abdominal hernia. Msk: No digital cyanosis. Strength 5/5 in upper extremities. No lower extremity strength. Skin: Warm and dry, no rashes. Neuro: Alert and oriented. No facial droop or slurred speech. Extra- ocular movements intact. Sensation intact to soft touch in all 4 limbs. Psych: Appropriate mood. Full affect. Oriented to person, place, time, and situation. Plan discussed with: Patient Dietary Evaluation Review Recommendations by RD: Increase Calorie Intake SUNDAY DONATO MD Jan 25, 2025 10:07
--- NOTE | 2025-01-25 10:23 | DVHSR ---
APPROVED REPORT EXAM: Two-dimensional and M-mode echocardiogram with Doppler and color Doppler. Blood Pressure: 122/85 mmHg INDICATION Rule out endocarditis RISK FACTORS Height: 5'6", Weight: 152 DIMENSIONS LVDd 4.6 (3.8-5.7cm) LA (2D) 3.4 (1.9-4.0cm) Aortic Root 3.7 (2.0-3.7cm) LVDs 2.9 (2.5-4.0cm) LA (MM) (1.9-4.0cm) Aortic Cusp Exc 2.1 (1.5-2.0cm) EF (%) 66.0 (55-70%) Rt. Atrium 3.8 (1.9-4.0cm) Asc. Aorta cm IVSd 1.0 (0.7-1.1cm) RV (D) 3.8 (1.8-2.4cm) PWd 0.7 (0.7-1.1cm) Mitral Valve Mitral Mitral Stenosis E wave 0.66m/s MV Mean GR. mmHg A wave 0.81m/s MV Peak GR. mmHg E/A ratio 0.8 2D MVA cm2 DECEL Time 275ms PRESS 1/2 Time ms Aortic Valve Aortic Valve Aortic Stenosis V1 1.09m/s AO Mean GR. 3mmHg V2 1.16m/s AO Peak GR. 5mmHg LVOT Diameter 2.0 (1.8-2.4cm) Doppler MORENO 2.95cm2 Pulmonic Valve V2 1.07m/s Conclusion lvef 65% normal rv function normal atria no severe valve abnormalities noted
[2025-01-25] MEDS: DOXYCYCLINE 100 MG TAB/CAP PO SCH (10:55)
[2025-01-25] MEDS: VANCOMYCIN 750MG KIT 100 ML IV SCH (11:19)
--- NOTE | 2025-01-25 12:06 | DVHPNRES ---
Progress Note Date Seen: Jan 25, 2025 Resident Creating Document: SARAH CARRILLO RESIDENT Medical Necessity Reason Pt with a Central, PICC or Fol: No Subjective Review of Systems patient is 54 years old male with a history of HIV for 20 years noncompliant with the medication, not taking medication for last 4 years as it ran out, depression came with a complaint of abdominal pain and diarrhea. As per patient he has been having Bloody diarrhea couple of episode every day for last one weeks. patient also endorsed abdominal pain crampy, continuous in nature, 8/10 for last 1 month. On further inquiry patient also endorsed nausea and vomiting x2, nonbloody. Patient reported feeling chills and fever but did not record temperature. Patient reported he is not taking his HIV medication which ran out 4 month before because of the financial issue. Denied any rash, chest pain, shortness of breath acute joint redness or swelling dysarthria or change in vision. Denied any colonoscopy or endoscopy before. Initial lab workup revealed WBC 7.2, hemoglobin 11.9, RDW 15.9, eosinophil 45, neutrophil 35. A1c 5.6, UDS positive for methamphetamine. urinalysis revealed leukocyte esterase 3+, nitrite 3+, WBC 31, bacteria many. CT abdomen and pelvis revealed-1. Mucosal thickening of the distal sigmoid colon and rectum may be due to underdistention or represent infectious/inflammatory colitis. Right middle and lower lobe infiltrates. Serpiginous sclerosis in the bilateral femoral heads suggesting avascular necrosis. No articular collapse. Mild wall thickening of the urinary bladder may be related to underdistention. Cystitis is not excluded. PMH- HIV, depression PSH- none Allergy- NKDA Personal History/ Social History- denies smoking, denies alcoholism, use amphetamine, lives with a friend/? Homeless ROS Cardiovascular- deny acute chest pain or shortness of breath or cough or palpitation Respiratory denies cough or short of breath or wheezing Gastrointestinal- abdominal pain, nausea or vomiting Musculoskeletal-denies acute joint swelling or tenderness or redness Neurological- denies acute dysarthria, dysphagia, change in vision Psychiatry- denies depression or SI or HI Skin- denies acute rash or purpura Patient was seen today at bedside, labs and chart reviewed. Reported having small bowel movements 3 times over 24 hours. TB QuantiFERON gold plus negative, shiga toxin negative. Blood culture Gram-positive cocci in cluster. Patient was seen by infectious disease, Dr. Ton Miller, ordered vancomycin, doxycycline, levofloxacin, metronidazole, repeat blood culture. Continue penicillin. Objective vital signs Vital Sign Date Time Temp Pulse Resp B/P (MAP) Pulse Ox O2 Delivery O2 Flow Rate FiO2 01/25/25 09:03 98.2 74 18 104/73 (83) 95 98.2 01/24/25 20:00 Room Air* 0 21 Total Intake and Output 01/24/25 01/24/25 01/25/25 15:00 23:00 07:00 Intake Total 720 ml 2140 ml 350 ml Output Total 1500 ml 990 ml Balance 720 ml 640 ml -640 ml medications Current Medications Medications Dose Ordered Sig/Joni Route Start Time Stop Time Status Last Admin Dose Admin Sodium Chloride 1,000 ml @ 120 mls/hr Q8H20M IV 01/22/25 09:45 01/25/25 10:56 120 MLS/HR Acetaminophen/ Hydrocodone Bitart 1 tab Q4HP PRN PO 01/22/25 09:45 01/25/25 05:37 1 TAB Ondansetron HCl 4 mg Q4HP PRN IV 01/22/25 09:45 Acetaminophen 650 mg Q6HP PRN PO 01/22/25 09:45 Morphine Sulfate 2 mg Q4HPRN PRN IV 01/22/25 09:45 Famotidine 20 mg DAILY IV 01/23/25 10:00 01/25/25 10:45 20 MG Citalopram Hydrobromide 40 mg DAILY PO 01/23/25 09:00 01/25/25 10:46 40 MG Enoxaparin Sodium 40 mg DAILY SC 01/23/25 10:00 01/25/25 10:46 40 MG Levofloxacin/ Dextrose 100 ml @ 100 mls/hr DAILY IV 01/25/25 10:00 01/25/25 10:55 100 MLS/HR Vancomycin HCl 0 ml @ 0 mls/hr PER PHARMACY IV 01/25/25 10:00 Doxycycline Monohydrate 100 mg Q12HR PO 01/25/25 10:00 01/25/25 10:55 100 MG Metronidazole 500 mg Q8HR PO 01/25/25 14:00 Vancomycin HCl 100 ml @ 100 mls/hr Q12H IV 01/25/25 12:00 01/25/25 11:19 100 MLS/HR Examination General examination- malnourished HEENT- PEERLA, no acute nasal discharge Cardiovascular- S1-S2 audible, rate and rhythm regular, no murmur Respiratory- CTAB, no wheeze or rhonchi Gastrointestinal- mild diffuse abdominal tenderness present, bowel sound+. Nondistended Musculoskeletal-no acute joint swelling or tenderness or redness Lower extremity- no leg edema Neurological- cranial nerves intact, no acute dysarthria or dysphagia Psychiatry- denies depression or SI or HI Skin- no acute rash or purpura laboratory and microbiology Laboratory Tests 01/25/25 04:35 Test 01/25/25 04:35 Range/Units Serum Glucose 78 74-106 mg/dL Microbiology Date/Time Source Procedure Growth Status 01/24/25 18:00 Stool Stool Culture - Preliminary Resulted 01/24/25 18:00 Stool Shiga Toxin I & II Pending Resulted 01/23/25 14:24 Blood Blood Culture - Preliminary Resulted 01/22/25 07:48 Voided Urine Urine Culture - Preliminary Resulted Problem List/Assessment/Plan Problem List/Assessment/Plan Assessment and plan # acute intractable nausea and vomiting and abdominal pain likely due to acute sigmoid colitis and proctitis # acute gastroenteritis likely due to above # bacteremia - CT abdomen and pelvis revealed-1. Mucosal thickening of the distal sigmoid colon and rectum may be due to underdistention or represent infectious/inflammatory colitis. -negative for C diff - ordered stool for ova, parasite, WBC, - stool for occult blood test-negative so far - ordered stool culture -blood culture Gram-positive cocci in cluster so far - on IV normal saline -penicillin, Bactrim, linezolid was discontinued by Dr. Ton Miller infectious disease -continue metronidazole as prescribed -continue vancomycin as prescribed -ordered IV doxycycline as prescribed -continue levofloxacin as prescribed - monitor vitals -patient was seen by infectious disease -commended-ordered chlamydia/gonococcal, troponin pallidum, QuantiFERON TB gold test, toxoplasma Wagner test, cryptococcal antibody, CMV immunoglobulin, brain head without contrast. -Echo 2D to rule out endocarditis-LVEF 65% # suspected pneumonia, ?PCP due to history of HIV - CT scan- Right middle and lower lobe infiltrates -continue current IV antibiotics as prescribed -patient is seen by infectious disease, recommendation reviewed and appreciated #Syphilis -treponema pallidum antibody reactive -RPR reactive -RPR titer 1 is to 8 -penicillin was discontinued by intubation disease -patient was started on doxycycline -continue monitoring clinically #UTI -urinalysis revealed leukocyte esterase 3+, nitrite 3+, WBC 31, bacteria many -urine culture positive for more than [id number] CFU per mL Gram-negative rods - CT abdomen and pelvis-Mild wall thickening of the urinary bladder may be related to under distention. -continue current antibiotic # HIV - % of CD4 cell 3.9, absolute CD4 cell count 43, T lymphocytes CD4/CD8 ratio 0.10, % of CD 8 cells 39.3, absolute CD8 432. - ordered HIV viral load -continue current treatment # Substance abuse, UDS positive for methamphetamine - patient was counseled about the effect of substance abuse on health # depression - restarted home medication citalopram # Serpiginous sclerosis in the bilateral femoral heads suggesting avascular necrosis-CT scan finding -follow up outpatient with the primary care physician Goals of care, Code status full code; discussed with >15 minutes PUD prophylaxis: pantoprazole DVT prophylaxis: lovenox Plan discussed with Dr. Devi , nursing staff, Total time spent on patient evaluation, chart review, assessment and plan, discussion discussion >35 minutes Plan discussed with: Patient, Other (RN) My Orders My Orders Orders - SARAH CARRILLO Procedure Category Date Status Time Vancomycin Per SELINA 01/26/25 In Process Pharmacy Protoc 01:00 Dietary Evaluation Review Recommendations by RD: Increase Calorie Intake Date of Service: Jan 25, 2025 Billing Provider: MADISON DEVI MD Common Visit Codes: [id number] INP/OBS CARE(HIGH) SARAH CARRILLO Jan 25, 2025 12:06
[2025-01-25] MEDS: metroNIDAZOLE 500 MG TAB PO SCH (14:00)
--- NOTE | 2025-01-25 23:09 | DVH ---
PROCEDURE: MRI BRAIN HEAD WO W CONTRAST INDICATION: headache, hiv/aids, EXAM DATE: 01/25/2025 03:55 PM COMPARISON: None TECHNIQUE: MRI of the brain without intravenous contrast. FINDINGS: Diffusion weighted images of the brain demonstrate no evidence of acute infarction. There is no evidence of acute intracranial hemorrhage, extra-axial collection, mass effect, midline shift, herniation or hydrocephalus. The ventricles, sulci and cisterns appear age appropriate. Focal area of increased T2/FLAIR signal with volume loss in the posterior left frontal cortex compatible with a prior infarct. There are no signal abnormalities on the susceptibility weighted sequences. The major vascular flow voids are present. Mucosal thickening throughout the paranasal sinuses, right worse than left. The surrounding soft tissues and osseous structures are unremarkable. IMPRESSION: No recent infarct or other acute intracranial abnormality. Inflammatory sinus disease.
[2025-01-26] VITALS (8 sets, daily range): BP systolic 104–118; BP diastolic 69–83; PULSE 73–83; RESP 16–18; TEMP 97.6–98.3; O2SAT 0–100
[2025-01-26 05:28] LABS: Hematocrit 31.9 % (41.0-53.0); Hemoglobin 10.6 g/dL (13.5-17.5); Mean Corpuscular Hemoglobin 29.0 pg (28.0-32.0); Mean Corpuscular Volume 86.9 fL (80.0-100.0)
[2025-01-26 06:19] LABS: Total Cells Counted 100.0 (100)
[2025-01-26] MEDS: ACETAMINOPHEN 325 MG TAB PO PRN (07:43)
--- NOTE | 2025-01-26 11:45 | DVHPNRES ---
Progress Note Date Seen: Jan 26, 2025 Resident Creating Document: MARIO RITTER Medical Necessity Reason Pt with a Central, PICC or Fol: No Subjective Review of Systems Patient is 54 years old male with a history of HIV for 20 years noncompliant with the medication, not taking medication for last 4 years as it ran out, depression came with a complaint of abdominal pain and diarrhea. As per patient he has been having Bloody diarrhea couple of episode every day for last one weeks. patient also endorsed abdominal pain crampy, continuous in nature, 8/10 for last 1 month. On further inquiry patient also endorsed nausea and vomiting x2, nonbloody. Patient reported feeling chills and fever but did not record temperature. Patient reported he is not taking his HIV medication which ran out 4 month before because of the financial issue. Denied any rash, chest pain, shortness of breath acute joint redness or swelling dysarthria or change in vision. Denied any colonoscopy or endoscopy before. Initial lab workup revealed WBC 7.2, hemoglobin 11.9, RDW 15.9, eosinophil 45, neutrophil 35. A1c 5.6, UDS positive for methamphetamine. urinalysis revealed leukocyte esterase 3+, nitrite 3+, WBC 31, bacteria many. CT abdomen and pelvis revealed-1. Mucosal thickening of the distal sigmoid colon and rectum may be due to underdistention or represent infectious/inflammatory colitis. Right middle and lower lobe infiltrates. Serpiginous sclerosis in the bilateral femoral heads suggesting avascular necrosis. No articular collapse. Mild wall thickening of the urinary bladder may be related to underdistention. Cystitis is not excluded. PMH- HIV, depression PSH- none Allergy- NKDA Personal History/ Social History- denies smoking, denies alcoholism, use amphetamine, lives with a friend/? Homeless ROS Cardiovascular- deny acute chest pain or shortness of breath or cough or palpitation Respiratory denies cough or short of breath or wheezing Gastrointestinal- abdominal pain, nausea or vomiting Musculoskeletal-denies acute joint swelling or tenderness or redness Neurological- denies acute dysarthria, dysphagia, change in vision Psychiatry- denies depression or SI or HI Skin- denies acute rash or purpura Patient was seen today at bedside, labs and chart reviewed. Reported having small bowel movements 3 times over 24 hours. TB QuantiFERON gold plus negative, shiga toxin negative. Blood culture Gram-positive cocci in cluster. Patient was seen by infectious disease, Dr. Ton Miller, ordered vancomycin, doxycycline, levofloxacin, metronidazole, repeat blood culture. Continue penicillin. On 01/26/25, Patient was seen and examined at bedside. Overnight events were reviewed. On evaluation today, he states he is feeling better, abdominal pain is manageable. Brain MRI show No recent infarct or other acute intracranial abnormality. Findings consistent with inflammatory sinus disease. Objective vital signs Vital Sign Date Time Temp Pulse Resp B/P (MAP) Pulse Ox O2 Delivery O2 Flow Rate FiO2 01/26/25 09:00 97.8 73 18 118/83 (95) 94 97.8 01/26/25 08:08 Room Air* 0 21 Total Intake and Output 01/25/25 01/25/25 01/26/25 15:00 23:00 07:00 Intake Total 500 ml 1125 ml 2100 ml Output Total 800 ml 1120 ml Balance 500 ml 325 ml 980 ml medications Current Medications Medications Dose Ordered Sig/Joni Route Start Time Stop Time Status Last Admin Dose Admin Sodium Chloride 1,000 ml @ 120 mls/hr Q8H20M IV 01/22/25 09:45 01/26/25 05:42 120 MLS/HR Acetaminophen/ Hydrocodone Bitart 1 tab Q4HP PRN PO 01/22/25 09:45 01/25/25 22:23 1 TAB Ondansetron HCl 4 mg Q4HP PRN IV 01/22/25 09:45 Acetaminophen 650 mg Q6HP PRN PO 01/22/25 09:45 01/26/25 07:43 650 MG Morphine Sulfate 2 mg Q4HPRN PRN IV 01/22/25 09:45 Famotidine 20 mg DAILY IV 01/23/25 10:00 01/26/25 09:37 20 MG Citalopram Hydrobromide 40 mg DAILY PO 01/23/25 09:00 01/26/25 09:37 40 MG Enoxaparin Sodium 40 mg DAILY SC 01/23/25 10:00 01/26/25 09:37 40 MG Levofloxacin/ Dextrose 100 ml @ 100 mls/hr DAILY IV 01/25/25 10:00 01/26/25 09:37 100 MLS/HR Vancomycin HCl 0 ml @ 0 mls/hr PER PHARMACY IV 01/25/25 10:00 Doxycycline Monohydrate 100 mg Q12HR PO 01/25/25 10:00 01/26/25 09:37 100 MG Metronidazole 500 mg Q8HR PO 01/25/25 14:00 01/26/25 05:42 500 MG Vancomycin HCl 100 ml @ 100 mls/hr Q12H IV 01/25/25 12:00 01/25/25 23:55 100 MLS/HR Examination General examination- malnourished HEENT- PEERLA, no acute nasal discharge Cardiovascular- S1-S2 audible, rate and rhythm regular, no murmur Respiratory- CTAB, no wheeze or rhonchi Gastrointestinal- mild diffuse abdominal tenderness present, bowel sound+. Nondistended Musculoskeletal-no acute joint swelling or tenderness or redness Lower extremity- no leg edema Neurological- cranial nerves intact, no acute dysarthria or dysphagia Psychiatry- denies depression or SI or HI Skin- no acute rash or purpura laboratory and microbiology Laboratory Tests 01/26/25 04:30 01/25/25 04:35 Test 01/25/25 04:35 Range/Units Serum Glucose 78 74-106 mg/dL Microbiology Date/Time Source Procedure Growth Status 01/25/25 11:07 Blood Blood Culture - Preliminary NO GROWTH AFTER 24 HOURS OF INCUBATION. Resulted 01/24/25 18:00 Stool Stool Culture - Preliminary Resulted 01/24/25 18:00 Stool Shiga Toxin I & II Pending Resulted 01/22/25 07:48 Voided Urine Urine Culture - Final Escherichia coli Complete Labs and/or images reviewed: Labs reviewed by me, Image(s) reviewed by me Problem List/Assessment/Plan Problem List/Assessment/Plan Problem List/Assessment/Plan Assessment and plan # acute intractable nausea and vomiting and abdominal pain likely due to acute sigmoid colitis and proctitis # acute gastroenteritis likely due to above # bacteremia - CT abdomen and pelvis revealed-1. Mucosal thickening of the distal sigmoid colon and rectum may be due to underdistention or represent infectious/inflammatory colitis. -negative for C diff - ordered stool for ova, parasite, WBC, - stool for occult blood test-negative so far - ordered stool culture -blood culture Gram-positive cocci in cluster so far - on IV normal saline -penicillin, Bactrim, linezolid was discontinued by Dr. oTn Miller infectious disease -continue metronidazole as prescribed -continue vancomycin as prescribed -ordered IV doxycycline as prescribed -continue levofloxacin as prescribed - monitor vitals -patient was seen by infectious disease -commended-ordered chlamydia/gonococcal, troponin pallidum, QuantiFERON TB gold test, toxoplasma Wagner test, cryptococcal antibody, CMV immunoglobulin, brain head without contrast. -Echo 2D to rule out endocarditis-LVEF 65% # suspected pneumonia, ?PCP due to history of HIV - CT scan- Right middle and lower lobe infiltrates -continue current IV antibiotics as prescribed -patient is seen by infectious disease, recommendation reviewed and appreciated #Syphilis -treponema pallidum antibody reactive -RPR reactive -RPR titer 1 is to 8 -penicillin was discontinued by intubation disease -patient was started on doxycycline -continue monitoring clinically #inflammatory sinus disease -Brain MRI: No recent infarct or other acute intracranial abnormality. Findings consistent with inflammatory sinus disease. #UTI -urinalysis revealed leukocyte esterase 3+, nitrite 3+, WBC 31, bacteria many -urine culture positive for more than [id number] CFU per mL Gram-negative rods - CT abdomen and pelvis-Mild wall thickening of the urinary bladder may be related to under distention. -continue current antibiotic # HIV - % of CD4 cell 3.9, absolute CD4 cell count 43, T lymphocytes CD4/CD8 ratio 0.10, % of CD 8 cells 39.3, absolute CD8 432. - ordered HIV viral load -continue current treatment # Substance abuse, UDS positive for methamphetamine - patient was counseled about the effect of substance abuse on health # depression - restarted home medication citalopram # Serpiginous sclerosis in the bilateral femoral heads suggesting avascular necrosis-CT scan finding -follow up outpatient with the primary care physician Goals of care, Code status full code; discussed with >15 minutes PUD prophylaxis: pantoprazole DVT prophylaxis: lovenox Plan discussed with Dr. Devi , nursing staff, Total time spent on patient evaluation, chart review, assessment and plan, discussion discussion >35 minutes Plan discussed with: Patient My Orders My Orders Orders - MARIO RITTER Procedure Category Date Status Time Complete Blood Count LAB 01/27/25 Verified 04:00 Comprehensive LAB 01/27/25 Verified Metabolic Panel 04:00 Dietary Evaluation Review Recommendations by RD: Increase Calorie Intake Date of Service: Jan 26, 2025 Billing Provider: MADISON DEVI MD Common Visit Codes: [id number] INP/OBS CARE(HIGH) MARIO RITTER Jan 26, 2025 11:45
[2025-01-26] MEDS: GADOTERATE MEG 10 MMOL/20ml INJ (0.5MMOL/ml) IV ONE (16:17)
[2025-01-27] VITALS (8 sets, daily range): BP systolic 98–110; BP diastolic 64–77; PULSE 69–88; RESP 16–20; TEMP 97.5–98.5; O2SAT 0–98
[2025-01-27 05:27] LABS: Hematocrit 33.4 % (41.0-53.0); Hemoglobin 11.4 g/dL (13.5-17.5); Mean Corpuscular Hemoglobin 29.0 pg (28.0-32.0); Mean Corpuscular Volume 85.2 fL (80.0-100.0)
[2025-01-27 05:47] LABS: Alanine Aminotransferase 30 U/L (7-40); Alkaline Phosphatase 89 U/L (46-116); Anion Gap 9 (5-15); BUN/Creatinine Ratio 11.1 (10.0-20.0); Blood Urea Nitrogen 10 mg/dL (9-23); Carbon Dioxide 23 mmol/L (20-31); Chloride 104 mmol/L (98-107); Glucose 76 mg/dL (74-106); Potassium 4.2 mmol/L (3.5-5.1)
[2025-01-27 05:49] LABS: Albumin 3.1 g/dL (3.2-4.8); Bilirubin, Total 0.3 mg/dL (0.2-1.0); Calcium 8.6 mg/dL (8.7-10.4); Sodium 136 mmol/L (136-145); Total Protein 8.6 g/dL (5.7-8.2)
[2025-01-27 06:07] LABS: Total Cells Counted 100.0 (100)
[2025-01-27] MEDS: VANCOMYCIN 750MG KIT 100 ML IV SCH (11:14)
--- NOTE | 2025-01-27 12:21 | DVHPNRES ---
Progress Note Date Seen: Jan 27, 2025 Resident Creating Document: SARAH CARRILLO RESIDENT Medical Necessity Reason Pt with a Central, PICC or Fol: No Subjective Review of Systems patient is 54 years old male with a history of HIV for 20 years noncompliant with the medication, not taking medication for last 4 years as it ran out, depression came with a complaint of abdominal pain and diarrhea. As per patient he has been having Bloody diarrhea couple of episode every day for last one weeks. patient also endorsed abdominal pain crampy, continuous in nature, 8/10 for last 1 month. On further inquiry patient also endorsed nausea and vomiting x2, nonbloody. Patient reported feeling chills and fever but did not record temperature. Patient reported he is not taking his HIV medication which ran out 4 month before because of the financial issue. Denied any rash, chest pain, shortness of breath acute joint redness or swelling dysarthria or change in vision. Denied any colonoscopy or endoscopy before. Initial lab workup revealed WBC 7.2, hemoglobin 11.9, RDW 15.9, eosinophil 45, neutrophil 35. A1c 5.6, UDS positive for methamphetamine. urinalysis revealed leukocyte esterase 3+, nitrite 3+, WBC 31, bacteria many. CT abdomen and pelvis revealed-1. Mucosal thickening of the distal sigmoid colon and rectum may be due to underdistention or represent infectious/inflammatory colitis. Right middle and lower lobe infiltrates. Serpiginous sclerosis in the bilateral femoral heads suggesting avascular necrosis. No articular collapse. Mild wall thickening of the urinary bladder may be related to underdistention. Cystitis is not excluded. PMH- HIV, depression PSH- none Allergy- NKDA Personal History/ Social History- denies smoking, denies alcoholism, use amphetamine, lives with a friend/? Homeless ROS Cardiovascular- deny acute chest pain or shortness of breath or cough or palpitation Respiratory denies cough or short of breath or wheezing Gastrointestinal- abdominal pain, nausea or vomiting Musculoskeletal-denies acute joint swelling or tenderness or redness Neurological- denies acute dysarthria, dysphagia, change in vision Psychiatry- denies depression or SI or HI Skin- denies acute rash or purpura Patient was seen today at bedside, labs and chart reviewed. Repeat blood culture negative for any growth Urine culture positive for E coli Stool for shiga toxin negative Neisseria gonorrhea and chlamydia trachomatis negative Patient reported he still gets loose motion with a small amount of stool Cardiology recommended patient does not meet the criteria for infective endocarditis, so no further workup is needed Social service is working on getting patient placement, transportation also ART for HIV Spoke to infectious disease doctor Dr. Miller regarding discharge plan, he replied he will review the chart and let me know with the discharge plan Objective vital signs Vital Sign Date Time Temp Pulse Resp B/P (MAP) Pulse Ox O2 Delivery O2 Flow Rate FiO2 01/27/25 09:00 97.6 79 19 109/74 (86) 96 97.6 01/27/25 08:05 Room Air* 0 21 Total Intake and Output 01/26/25 01/26/25 01/27/25 15:00 23:00 07:00 Intake Total 200 ml 600 ml 1200 ml Output Total 800 ml 900 ml Balance 200 ml -200 ml 300 ml medications Current Medications Medications Dose Ordered Sig/Joni Route Start Time Stop Time Status Last Admin Dose Admin Sodium Chloride 1,000 ml @ 120 mls/hr Q8H20M IV 01/22/25 09:45 01/26/25 21:45 120 MLS/HR Acetaminophen/ Hydrocodone Bitart 1 tab Q4HP PRN PO 01/22/25 09:45 01/26/25 19:54 1 TAB Ondansetron HCl 4 mg Q4HP PRN IV 01/22/25 09:45 Acetaminophen 650 mg Q6HP PRN PO 01/22/25 09:45 01/26/25 07:43 650 MG Morphine Sulfate 2 mg Q4HPRN PRN IV 01/22/25 09:45 Famotidine 20 mg DAILY IV 01/23/25 10:00 01/27/25 09:52 20 MG Citalopram Hydrobromide 40 mg DAILY PO 01/23/25 09:00 01/27/25 09:52 40 MG Enoxaparin Sodium 40 mg DAILY SC 01/23/25 10:00 01/27/25 09:52 40 MG Levofloxacin/ Dextrose 100 ml @ 100 mls/hr DAILY IV 01/25/25 10:00 01/27/25 09:52 100 MLS/HR Vancomycin HCl 0 ml @ 0 mls/hr PER PHARMACY IV 01/25/25 10:00 Doxycycline Monohydrate 100 mg Q12HR PO 01/25/25 10:00 01/27/25 09:52 100 MG Metronidazole 500 mg Q8HR PO 01/25/25 14:00 01/27/25 05:48 500 MG Vancomycin HCl 100 ml @ 100 mls/hr Q8H IV 01/27/25 10:00 01/27/25 11:14 100 MLS/HR Examination General examination- malnourished HEENT- PEERLA, no acute nasal discharge Cardiovascular- S1-S2 audible, rate and rhythm regular, no murmur Respiratory- CTAB, no wheeze or rhonchi Gastrointestinal- mild diffuse abdominal tenderness present, bowel sound+. Nondistended Musculoskeletal-no acute joint swelling or tenderness or redness Lower extremity- no leg edema Neurological- cranial nerves intact, no acute dysarthria or dysphagia Psychiatry- denies depression or SI or HI Skin- no acute rash or purpura laboratory and microbiology Laboratory Tests 01/27/25 04:36 Test 01/27/25 04:36 Range/Units Serum Glucose 76 74-106 mg/dL Microbiology Date/Time Source Procedure Growth Status 01/25/25 11:07 Blood Blood Culture - Preliminary NO GROWTH AFTER 48 HOURS OF INCUBATION. Resulted 01/24/25 18:00 Stool Stool Culture - Preliminary Resulted 01/24/25 18:00 Stool Shiga Toxin I & II Pending Resulted 01/22/25 07:48 Voided Urine Urine Culture - Final Escherichia coli Complete Problem List/Assessment/Plan Problem List/Assessment/Plan Assessment and plan # acute intractable nausea and vomiting and abdominal pain likely due to acute sigmoid colitis and proctitis # acute gastroenteritis likely due to above # bacteremia - CT abdomen and pelvis revealed-1. Mucosal thickening of the distal sigmoid colon and rectum may be due to underdistention or represent infectious/inflammatory colitis. -negative for C diff - ordered stool -WBC few, - stool for occult blood test-negative so far - pending stool culture - on 01/23/2025 blood culture Gram-positive cocci in cluster so far -repeat blood culture on 01/26/2020 negative -penicillin, Bactrim, linezolid was discontinued by Dr. Ton Miller infectious disease Urine culture positive for E coli Stool for shiga toxin negative Neisseria gonorrhea and chlamydia trachomatis negative -continue metronidazole as prescribed -continue vancomycin as prescribed -ordered IV doxycycline as prescribed -continue levofloxacin as prescribed -patient was seen by infectious disease ordered chlamydia/gonococcal, troponin pallidum, QuantiFERON TB gold test, toxoplasma Wagner test, cryptococcal antibody, CMV immunoglobulin, brain head without contrast. -Echo 2D to rule out endocarditis-LVEF 65% Plan is to discussed with a doctor came in regarding prophylaxis for toxoplasma/PCP as patient's CD4 cell count was 43 -Cardiology consulted for BOLA, does not meet Severino Criteria for infective endocarditis at this time. - monitor vitals # suspected pneumonia, - CT scan- Right middle and lower lobe infiltrates -continue current antibiotics as prescribed -patient is seen by infectious disease, recommendation reviewed and appreciated #Syphilis -treponema pallidum antibody reactive -RPR reactive -RPR titer 1 is to 8 -Neisseria gonorrhea and chlamydia trachomatis negative -penicillin was discontinued by Infectious disease specialist Dr. Camilo -patient was started on doxycycline -continue monitoring clinically #UTI -urinalysis revealed leukocyte esterase 3+, nitrite 3+, WBC 31, bacteria many -urine culture positive for E coli, sensitive to levofloxacin - CT abdomen and pelvis-Mild wall thickening of the urinary bladder may be related to under distention. -continue current IV antibiotic levofloxacin # HIV -MRI of the brain-No recent infarct or other acute intracranial abnormality. - % of CD4 cell 3.9, absolute CD4 cell count 43, T lymphocytes CD4/CD8 ratio 0.10, % of CD 8 cells 39.3, absolute CD8 432. - ordered HIV viral load -continue current treatment -Plan is to discussed with a doctor came in regarding prophylaxis for toxoplasma/PCP as patient's CD4 cell count was 43 # Substance abuse, UDS positive for methamphetamine - patient was counseled about the effect of substance abuse on health # depression - restarted home medication citalopram # Serpiginous sclerosis in the bilateral femoral heads suggesting avascular necrosis-CT scan finding -follow up outpatient with the primary care physician # homeless -social service is working on getting patient a place to stay, transportation also getting anterior triple therapy once discharged Goals of care, Code status full code; PUD prophylaxis: pantoprazole DVT prophylaxis: lovenox Patient reported he does not have any family I can talk to Plan discussed with Dr. Devi, nursing staff, Total time spent on patient evaluation, chart review, assessment and plan, discussion discussion >35 minutes Plan discussed with: Patient, Other (RN) My Orders My Orders Orders - SARAH CARRILLO RESIDENT Procedure Category Date Status Time * Cardiology Consult CONS 01/27/25 Transmitted 11:13 Dietary Evaluation Review Recommendations by RD: Increase Calorie Intake Date of Service: Jan 27, 2025 Billing Provider: MADISON DEVI MD Common Visit Codes: [id number] INP/OBS CARE(HIGH) SARAH CARRILLO RESIDENT Jan 27, 2025 12:21 LALITA ZARAGOZA RESIDENT Jan 28, 2025 00:06
[2025-01-27 13:07] LABS: Chlamydia Trachomatis, NAA Negative (Negative); Neisseria gonorrhoeae, NAA Negative (Negative)
--- NOTE | 2025-01-27 14:16 | DVHINCON2 ---
ROXANA EDMOND [facility] 01/27/25 1416: Date Seen: Jan 27, 2025 Referring Physician MD Norma Reason for Consultation WOJCIECH rule out infective endocarditis History of Present Illness This is a 54-year-old man who presented to the emergency room with a chief complaint of diarrhea for one week. The patient presented with complaints of watery stools associated with abdominal pain, nausea, vomiting, and headache. H e has been diagnosed with acute sigmoid colitis and proctitis. Cardiology consulted for a transesophageal echocardiogram to rule out infective endocarditis. The patient denies predisposing heart conditions or pyrexia. Significant medical history includes untreated HIV , longstanding history of methamphetamine use, cannabinoid use, and depression. Past Medical History Past medical history reviewed. No other significant than mentioned above. Past Surgical History Past surgical history reviewed. No other significant than mentioned above. Family History: Patient reports no known family medical history. Family History Family history reviewed. Social History Uses methamphetamines on daily basis since 36 y.o. Admits to cannabinoid use, occasional basis. Denies the use of alcohol or cigarettes. Allergies: Coded Allergies: NO KNOWN ALLERGIES (Unverified , 01/22/25) Home Meds Denies any home medications. Current Medications Current Medications Medications (Trade) Dose Ordered Sig/Joni Route PRN Reason Start Time Stop Time Status Last Admin Vancomycin HCl 100 ml @ 100 mls/hr Q8H IV 01/27/25 10:00 01/27/25 11:14 Review of Systems Constitutional: No symptom reported Ears, Nose, & Throat: No symptom reported Eyes: No symptom reported Neurological: SUGGS Pulmonary/Respiratory: No symptom reported Cardiovascular: No symptom reported Gastrointestinal: Abdominal pain, nausea,, vomiting, watery stools Genitourinary: No symptom reported Musculoskeletal: No symptom reported Skin: No symptom reported Psychiatric: No symptom reported Endocrine: No symptom reported Hemotologic/Lymphatic: No symptom reported Vital Signs Vital Signs Date Time Temp Pulse Resp B/P (MAP) Pulse Ox O2 Delivery O2 Flow Rate FiO2 01/27/25 09:00 97.6 79 19 109/74 (86) 96 97.6 01/27/25 08:05 Room Air* 0 21 Physical Exam General Appearance: Cooperative. Thin. Unkempt Head Exam: Normal inspection Neck Exam: Normal inspection. Non-tender. Normal alignment Pulmonary/Respiratory: Chest non-tender. Clear bilateral breath sounds Cardiovascular/Chest: Regular rate and rhythm. S1, S2. Sinus rhythm. No murmurs. No JVD. Peripheral Pulses: 2+ Radial (R). 2+ Radial (L). 2+ Pedal (R). 2+ Pedal (L) Abdominal Exam: Normal bowel sounds Ankle Exam: Negative ankle edema Lower extremities: Negative lower extremity edema Neuro/Mental Status: A&O x4. Coherent Thoughts/Psych: Normal thought pattern. Appropriate mood and affect. Good judgement and insight Appearance: In no acute distress Skin Exam: Positive nail deformity/dystrophy/discolored Labs/Diagnostic Data Labs Test 01/27/25 04:36 01/26/25 22:55 01/25/25 11:00 01/25/25 04:35 Range/Units White Blood Count 6.5 4.4-10.8 10^3/uL Red Blood Count 3.92 L 4.5-5.90 10^6/uL Hemoglobin 11.4 L 13.5-17.5 g/dL Hematocrit 33.4 L 41.0-53.0 % Mean Corpuscular Volume 85.2 80.0-100.0 fL Mean Corpuscular Hemoglobin 29.0 28.0-32.0 pg Mean Corpuscular Hemoglobin Concent 34.1 32.0-36.0 g/dL Red Cell Distribution Width 16.3 H 11.8-14.3 % Platelet Count 306 140-450 10^3/uL Mean Platelet Volume 7.6 6.9-10.8 fL Neutrophils (%) (Auto) 37.0-80.0 % Lymphocytes (%) (Auto) 10.0-50.0 % Monocytes (%) (Auto) 0.0-12.0 % Eosinophils (%) (Auto) 0.0-7.0 % Basophils (%) (Auto) 0.0-2.0 % Neutrophils # (Auto) 1.6-8.6 10 ^3/uL Lymphocytes # (Auto) 0.4-5.4 10 ^3/uL Monocytes # (Auto) 0-1.3 10 ^3/uL Differential Total Cells Counted 100.0 100 Neutrophils % (Manual) 12 L 37.0-80.0 Band Neutrophils % (Manual) 1 Lymphocytes % (Manual) 27 10.0-50.0 Monocytes % (Manual) 7 0-12 Eosinophils % (Manual) 53 H 0-7 Basophils % (Manual) 0 0.0-2.0 Metamyelocytes % (manual) 0 Myelocytes % (Manual) 0 Promyelocytes % (Manual) 0 Blast Cells % (Manual) 0 Reactive Lymphocytes 0 Platelet Estimate Adequate Sodium Level 136 136-145 mmol/L Potassium Level 4.2 3.5-5.1 mmol/L Chloride Level 104 98-107 mmol/L Carbon Dioxide Level 23 20-31 mmol/L Anion Gap 9 5-15 Blood Urea Nitrogen 10 9-23 mg/dL Creatinine 0.90 0.700-1.30 mg/dL Glomerular Filtration Rate Calc 100 >90 mL/min BUN/Creatinine Ratio 11.1 10.0-20.0 Serum Glucose 76 74-106 mg/dL Calcium Level 8.6 L 8.7-10.4 mg/dL Total Bilirubin 0.3 0.2-1.0 mg/dL Aspartate Amino Transferase (AST) 49 H 13-40 U/L Alanine Aminotransferase (ALT) 30 7-40 U/L Alkaline Phosphatase 89 46-116 U/L Total Protein 8.6 H 5.7-8.2 g/dL Albumin 3.1 L 3.2-4.8 g/dL Vancomycin Level Trough 9.3 5-10 ug/mL Magnesium Level 2.1 1.6-2.6 mg/dL Test 01/24/25 18:00 01/24/25 09:00 01/24/25 04:45 01/23/25 16:50 Range/Units Stool for White Cells Few Chlamydia trachomatis (DOMINIC) Negative Negative Neisseria gonorrhoeae (DOMINIC) Negative Negative Plasma/Serum Blood Alcohol < 3.0 <10 mg/dL POC Glucose 141 H 70-106 mg/dl Test 01/23/25 14:24 01/23/25 14:19 01/23/25 10:53 01/23/25 04:36 Range/Units TB Test (QFT) Gold Plus Negative Negative TB Test (QFT) Nil 0.18 . IU/mL TB Test (QFT) Mitogen 3.62 . IU/mL TB Test (QFT) Antigen 1 0.17 . IU/mL TB Test (QFT) Antigen 2 0.16 . IU/mL TB Test (QFT) Criteria Comment . Rapid Plasma Reagin Titer 1:8 A NONREACTIVE Titer Rapid Plasma Reagin Reactive A NONREACTIVE Treponema pallidum Antibody Reactive *A Negative Absolute Neutrophils (auto) 2.0 1.4-7.0 x10E3/uL Absolute Lymphocytes (auto) 1.1 0.7-3.1 x10E3/uL Absolute Monocytes (auto) 0.3 0.1-0.9 x10E3/uL Absolute Eosinophils (auto) 2.2 H 0.0-0.4 x10E3/uL Absolute Basophils (auto) 0.0 0.0-0.2 x10E3/uL Immature Granulocytes % 0 Not Estab. % Immature Granulocytes # 0 0.0-0.1 x10E3/uL Nucleated Red Blood Cells . Immature Blood Cells . Hematology Comments Note: . Percent CD4 Cells 3.9 L 30.8-58.5 % Absolute CD4 Count 43 L 359-1519 /uL T-Lymphocyte CD4/CD8 Ratio 0.10 L 0.92-3.72 Percent CD8 Cells 39.3 H 12.0-35.5 % Absolute CD8 Count 432 109-897 /uL Hemoglobin A1c 5.8 H <5.7 % A1C Triglycerides Level 85 < 150 mg/dL Cholesterol Level 97 < 200 mg/dL LDL Cholesterol 54 < 100 mg/dL HDL Cholesterol 29 L 40-59 mg/dL Lipase 29 12-53 U/L Vitamin B12 Level 252 211-911 pg/mL Vitamin D 25-Hydroxy 52.3 30.0-100 ng/mL Folic Acid 8.46 >5.38 ng/mL Thyroid Stimulating Hormone (TSH) 1.82 0.55-4.78 uIU/mL Hepatitis A IgM Antibody Negative Hepatitis B Surface Antigen Negative Negative Hepatitis B Core IgM Antibody Negative Negative Hepatitis C Antibody Negative Negative HIV-1 Antibody Confirmation Reactive Non Reactive HIV-2 Antibody Confirmation Non reactive Non Reactive HIV (1&2) Ag and Ab, 4th Generation Preliminary reactive Non Reactive HIV (1&2) Antibody Deferred Negative HIV (1&2) Antibody Interpretation Hiv-1 positive H . Test 01/22/25 07:48 01/22/25 07:45 Range/Units Urine Color Yellow Yellow Urine Clarity Turbid H Clear Urine pH 6.5 5.0-9.0 Urine Specific [place] 1.021 1.001-1.035 Urine Protein Trace H Negative Urine Ketones Negative Negative Urine Blood Trace H Negative /uL Urine Nitrite 2+ H Negative Urine Bilirubin Negative Negative Urine Urobilinogen 2 H Negative mg/dL Urine Leukocyte Esterase 3+ Negative /uL Urine RBC 7 0 - 3 /hpf Urine Microscopic WBC 31 H 0-3 /HPF Urine Squamous Epithelial Cells Few <5 /hpf Urine Bacteria Few H None Seen /hpf Urine Glucose Normal Normal mg/dL Urine Opiates Screen Neg NEGATIVE Urine Fentanyl Screen Neg NEGATIVE Urine Barbiturates Screen Neg NEGATIVE Urine Phencyclidine Screen Neg NEGATIVE Urine Amphetamines Screen Pos NEGATIVE Urine Benzodiazepines Screen Neg NEGATIVE Urine Cocaine Screen Neg NEGATIVE Urine Cannabinoids Screen Neg NEGATIVE Stool Occult Blood Sample #3 Negative Negative Microbiology Date/Time Source Procedure Growth Status 01/25/25 11:07 Blood Blood Culture - Preliminary NO GROWTH AFTER 48 HOURS OF INCUBATION. Resulted 01/24/25 18:00 Stool Stool Culture - Preliminary Resulted 01/24/25 18:00 Stool Shiga Toxin I & II Pending Resulted 01/22/25 07:48 Voided Urine Urine Culture - Final Escherichia coli Complete Assessment Bacteremia likely secondary to acute sigmoid colitis/proctitis Positive HIV status Positive syphilis Methamphetamines/cannabinoid use Homeless state Depression Plan/Recommendation (Dr. Fuentes) Case discussed with Dr. Fuentes. The patient underwent a transthoracic echocardiogram revealing an LVEF of 65% with normal RV function, normal atria, and no severe valve abnormalities noted. Cardiology consulted for a transesophageal echocardiogram to rule out infective endocarditis. Severino' cri teria for infective endocarditis is rejected as the patient does not meet pathological criteria including microorganisms in a vegetation neither pathologic lesions. The patient does not meet major clinical criteria such as blood cultures for endocarditis or evidence of endocardial involvement on transthoracic echocardiogram. The patient neither meet multiple minor clinical criteria for a WOJCIECH to be advised at this time. There is no further cardiac workup indicated at this time. Kindly re-consult if deemed necessary. Thank you for allowing us to participate in this patient's care. This medical document was created using an electronic medical record system with voice recognition software and computerized dictation system. Although this doc ument has been carefully reviewed, there might still be some phonetic and typographical errors. Occasional wrong-word or ``sound-alike substitutions may have occurred due to the inherent limitations of voice recognition software. These areas are purely typographical due to imperfections of the software programs and do not reflect any compromise in the patient's medical care. Joaquin pereira read the chart carefully and recognize, using context, where these substitutions have occurred. Plan discussed with: Patient, Other NYHA Physical activity limitations: NA Date of Service: Jan 27, 2025 Billing Provider: ROXANA EDMOND Cardiology Common Codes: [id number] INP/OBS CARE (High) JAYLA FUENTES MD 01/27/25 1658: Family History: Patient reports no known family medical history. Allergies: Coded Allergies: NO KNOWN ALLERGIES (Unverified , 01/22/25) Plan/Recommendation agree with earth science teacher assessment and plan pt seen with cv team no indication for wojciech for now unless consistent bacteremic will sign off , please call for ?s Plan discussed with: Patient EDMONDROXANA Jan 27, 2025 14:16 JAYLA FUENTES MD Jan 27, 2025 16:58
[2025-01-28] VITALS (8 sets, daily range): BP systolic 102–114; BP diastolic 74–84; PULSE 76–94; RESP 16–20; TEMP 97.2–98.4; O2SAT 0–98
[2025-01-28 09:10] LABS: Hematocrit 34.5 % (41.0-53.0); Hemoglobin 11.5 g/dL (13.5-17.5); Mean Corpuscular Hemoglobin 29.0 pg (28.0-32.0); Mean Corpuscular Volume 87.4 fL (80.0-100.0)
[2025-01-28 09:24] LABS: Chloride 102 mmol/L (98-107); Potassium 4.1 mmol/L (3.5-5.1)
[2025-01-28 09:25] LABS: Anion Gap 8 (5-15); Calcium 9.0 mg/dL (8.7-10.4); Carbon Dioxide 24 mmol/L (20-31)
[2025-01-28 09:30] LABS: BUN/Creatinine Ratio 11.1 (10.0-20.0); Blood Urea Nitrogen 12 mg/dL (9-23)
[2025-01-28 09:33] LABS: Glucose 114 mg/dL (74-106); Sodium 134 mmol/L (136-145)
[2025-01-28 09:46] LABS: RBC Morphology Normal; Total Cells Counted 100.0 (100)
[2025-01-28] MEDS: VANCOMYCIN 1GM/250ML IV SCH (13:08)
--- NOTE | 2025-01-28 15:04 | DVHPNRES ---
Progress Note Date Seen: Jan 28, 2025 Resident Creating Document: SARAH CARRILLO RESIDENT Medical Necessity Reason Pt with a Central, PICC or Fol: No Subjective Review of Systems patient is 54 years old male with a history of HIV for 20 years noncompliant with the medication, not taking medication for last 4 years as it ran out, depression came with a complaint of abdominal pain and diarrhea. As per patient he has been having Bloody diarrhea couple of episode every day for last one weeks. patient also endorsed abdominal pain crampy, continuous in nature, 8/10 for last 1 month. On further inquiry patient also endorsed nausea and vomiting x2, nonbloody. Patient reported feeling chills and fever but did not record temperature. Patient reported he is not taking his HIV medication which ran out 4 month before because of the financial issue. Denied any rash, chest pain, shortness of breath acute joint redness or swelling dysarthria or change in vision. Denied any colonoscopy or endoscopy before. Initial lab workup revealed WBC 7.2, hemoglobin 11.9, RDW 15.9, eosinophil 45, neutrophil 35. A1c 5.6, UDS positive for methamphetamine. urinalysis revealed leukocyte esterase 3+, nitrite 3+, WBC 31, bacteria many. CT abdomen and pelvis revealed-1. Mucosal thickening of the distal sigmoid colon and rectum may be due to underdistention or represent infectious/inflammatory colitis. Right middle and lower lobe infiltrates. Serpiginous sclerosis in the bilateral femoral heads suggesting avascular necrosis. No articular collapse. Mild wall thickening of the urinary bladder may be related to underdistention. Cystitis is not excluded. PMH- HIV, depression PSH- none Allergy- NKDA Personal History/ Social History- denies smoking, denies alcoholism, use amphetamine, lives with a friend/? Homeless ROS Cardiovascular- deny acute chest pain or shortness of breath or cough or palpitation Respiratory denies cough or short of breath or wheezing Gastrointestinal- abdominal pain, nausea or vomiting Musculoskeletal-denies acute joint swelling or tenderness or redness Neurological- denies acute dysarthria, dysphagia, change in vision Psychiatry- denies depression or SI or HI Skin- denies acute rash or purpura Patient was seen today at bedside, labs and chart reviewed. Patient reported his abdominal pain and diarrhea has improved and resolved As per social service for patient's wheezing, transportation and a RT 48 positive walking and they will talk with the patient today in the afternoon. We will follow up with the social service Repeat blood culture 01/25/2025 no growth. spoke to Infectious disease recommended to start Biktarvy, Bactrim for PCP prophylaxis, azithromycin for MAC prophylaxis and doxycycline for syphilis. Doctor Paul also recommended patient can get ART from [facility] without insurance Objective vital signs Vital Sign Date Time Temp Pulse Resp B/P (MAP) Pulse Ox O2 Delivery O2 Flow Rate FiO2 01/28/25 13:00 98.2 84 20 102/74 (83) 98 98.2 01/28/25 08:03 Room Air* 0 21 Total Intake and Output 01/27/25 01/27/25 01/28/25 15:00 23:00 07:00 Intake Total 400 ml 1700 ml Output Total 600 ml 1900 ml Balance -200 ml -200 ml medications Current Medications Medications Dose Ordered Sig/Joni Route Start Time Stop Time Status Last Admin Dose Admin Acetaminophen/ Hydrocodone Bitart 1 tab Q4HP PRN PO 01/22/25 09:45 01/26/25 19:54 1 TAB Ondansetron HCl 4 mg Q4HP PRN IV 01/22/25 09:45 Acetaminophen 650 mg Q6HP PRN PO 01/22/25 09:45 01/28/25 06:03 650 MG Morphine Sulfate 2 mg Q4HPRN PRN IV 01/22/25 09:45 Famotidine 20 mg DAILY IV 01/23/25 10:00 01/28/25 10:41 20 MG Citalopram Hydrobromide 40 mg DAILY PO 01/23/25 09:00 01/28/25 10:41 40 MG Enoxaparin Sodium 40 mg DAILY SC 01/23/25 10:00 01/28/25 10:41 40 MG Levofloxacin/ Dextrose 100 ml @ 100 mls/hr DAILY IV 01/25/25 10:00 01/28/25 10:40 100 MLS/HR Vancomycin HCl 0 ml @ 0 mls/hr PER PHARMACY IV 01/25/25 10:00 Doxycycline Monohydrate 100 mg Q12HR PO 01/25/25 10:00 01/28/25 10:41 100 MG Metronidazole 500 mg Q8HR PO 01/25/25 14:00 01/28/25 13:08 500 MG Vancomycin HCl 250 ml @ 250 mls/hr Q12H IV 01/28/25 14:00 01/28/25 13:08 250 MLS/HR Examination General examination- malnourished HEENT- PEERLA, no acute nasal discharge Cardiovascular- S1-S2 audible, rate and rhythm regular, no murmur Respiratory- CTAB, no wheeze or rhonchi Gastrointestinal- mild diffuse abdominal tenderness present, bowel sound+. Nondistended Musculoskeletal-no acute joint swelling or tenderness or redness Lower extremity- no leg edema Neurological- cranial nerves intact, no acute dysarthria or dysphagia Psychiatry- denies depression or SI or HI Skin- no acute rash or purpura laboratory and microbiology Laboratory Tests 01/28/25 08:45 Test 01/28/25 08:45 Range/Units Serum Glucose 114 H 74-106 mg/dL Microbiology Date/Time Source Procedure Growth Status 01/25/25 11:07 Blood Blood Culture - Preliminary NO GROWTH AFTER 72 HOURS OF INCUBATION. Resulted 01/24/25 18:00 Stool Stool Culture - Final Complete 01/24/25 18:00 Stool Shiga Toxin I & II - Final Complete 01/22/25 07:48 Voided Urine Urine Culture - Final Escherichia coli Complete Problem List/Assessment/Plan Problem List/Assessment/Plan Assessment and plan # acute intractable nausea and vomiting and abdominal pain likely due to acute sigmoid colitis and proctitis # acute gastroenteritis likely due to above # bacteremia - CT abdomen and pelvis revealed-1. Mucosal thickening of the distal sigmoid colon and rectum may be due to underdistention or represent infectious/inflammatory colitis. -negative for C diff - ordered stool -WBC few, - stool for occult blood test-negative so far - pending stool culture - on 01/23/2025 blood culture Gram-positive cocci in cluster so far -repeat blood culture on 01/26/2020 negative -penicillin, Bactrim, linezolid was discontinued by Dr. oTn Miller infectious disease Urine culture positive for E coli Stool for shiga toxin negative Neisseria gonorrhea and chlamydia trachomatis negative -continue metronidazole as prescribed -continue vancomycin as prescribed -ordered IV doxycycline as prescribed -continue levofloxacin as prescribed -patient was seen by infectious disease -commended-ordered chlamydia/gonococcal, troponin pallidum, QuantiFERON TB gold test, toxoplasma Wagner test, cryptococcal antibody, CMV immunoglobulin, brain head without contrast. -Echo 2D to rule out endocarditis-LVEF 65% --Cardiology recommended patient does not meet the criteria for infective endocarditis, so no further workup is needed - spoke to Infectious disease recommended to start Biktarvy, Bactrim for PCP prophylaxis, azithromycin for MAC prophylaxis and doxycycline for syphilis. # suspected pneumonia, - CT scan- Right middle and lower lobe infiltrates -continue current antibiotics as prescribed -patient is seen by infectious disease, recommendation reviewed and appreciated #Syphilis -treponema pallidum antibody reactive -RPR reactive -RPR titer 1 is to 8 -Neisseria gonorrhea and chlamydia trachomatis negative -penicillin was discontinued by Infectious disease specialist Dr. Camilo -patient was started on doxycycline -continue monitoring clinically #UTI -urinalysis revealed leukocyte esterase 3+, nitrite 3+, WBC 31, bacteria many -urine culture positive for E coli, sensitive to levofloxacin - CT abdomen and pelvis-Mild wall thickening of the urinary bladder may be related to under distention. -continue current IV antibiotic levofloxacin # HIV -MRI of the brain-No recent infarct or other acute intracranial abnormality. - % of CD4 cell 3.9, absolute CD4 cell count 43, T lymphocytes CD4/CD8 ratio 0.10, % of CD 8 cells 39.3, absolute CD8 432. - ordered HIV viral load -continue current treatment -Plan is to discussed with a doctor came in regarding prophylaxis for toxoplasma/PCP as patient's CD4 cell count was 43 # Substance abuse, UDS positive for methamphetamine - patient was counseled about the effect of substance abuse on health # depression - restarted home medication citalopram # Serpiginous sclerosis in the bilateral femoral heads suggesting avascular necrosis-CT scan finding -follow up outpatient with the primary care physician # homeless -social service is working on getting patient a place to stay, transportation also getting anterior triple therapy once discharged Goals of care, Code status full code; PUD prophylaxis: pantoprazole DVT prophylaxis: lovenox Patient reported he does not have any family I can talk to Plan discussed with Dr. Devi, nursing staff, Total time spent on patient evaluation, chart review, assessment and plan, discussion discussion >35 minutes Plan discussed with: Patient, Other (RN) Dietary Evaluation Review Recommendations by RD: Increase Calorie Intake Comments: Nutrition Recommendation: 1) Consider NCS soft diet 2) Monitor PO intake, lab values, weight trend, and I/O Expected Outcomes/Goals: Intake to meet >75% estimated needs FU 3-5 days Visit Coding STANDARD RES Billing Provider: MADISON DEVI MD Date of Service if different f: Jan 28, 2025 Date of Service: Jan 28, 2025 Billing Provider: MADISON DEVI MD Common Visit Codes: [id number] INP/OBS CARE(HIGH) SARAH CARRILLO RESIDENT Jan 28, 2025 15:04
--- NOTE | 2025-01-28 16:40 | DVHPN2 ---
Consult Progress Note Date Seen: Jan 26, 2025 Subjective Patient reports: Feels better (ongoing loose stools, slight headache) Objective vital signs Vital Sign Date Time Temp Pulse Resp B/P (MAP) Pulse Ox O2 Delivery O2 Flow Rate FiO2 01/28/25 13:00 98.2 84 20 102/74 (83) 98 98.2 01/28/25 08:03 Room Air* 0 21 Total Intake and Output 01/27/25 01/27/25 01/28/25 15:00 23:00 07:00 Intake Total 400 ml 1700 ml Output Total 600 ml 1900 ml Balance -200 ml -200 ml medications Current Medications Medications Dose Ordered Sig/Joni Route Start Time Stop Time Status Last Admin Dose Admin Acetaminophen/ Hydrocodone Bitart 1 tab Q4HP PRN PO 01/22/25 09:45 01/26/25 19:54 1 TAB Ondansetron HCl 4 mg Q4HP PRN IV 01/22/25 09:45 Acetaminophen 650 mg Q6HP PRN PO 01/22/25 09:45 01/28/25 06:03 650 MG Morphine Sulfate 2 mg Q4HPRN PRN IV 01/22/25 09:45 Famotidine 20 mg DAILY IV 01/23/25 10:00 01/28/25 10:41 20 MG Citalopram Hydrobromide 40 mg DAILY PO 01/23/25 09:00 01/28/25 10:41 40 MG Enoxaparin Sodium 40 mg DAILY SC 01/23/25 10:00 01/28/25 10:41 40 MG Levofloxacin/ Dextrose 100 ml @ 100 mls/hr DAILY IV 01/25/25 10:00 01/28/25 10:40 100 MLS/HR Vancomycin HCl 0 ml @ 0 mls/hr PER PHARMACY IV 01/25/25 10:00 Doxycycline Monohydrate 100 mg Q12HR PO 01/25/25 10:00 01/28/25 10:41 100 MG Vancomycin HCl 250 ml @ 250 mls/hr Q12H IV 01/28/25 14:00 01/28/25 13:08 250 MLS/HR laboratory and microbiology Laboratory Tests 01/28/25 08:45 Test 01/28/25 08:45 Range/Units Serum Glucose 114 H 74-106 mg/dL Problem List/Assessment/Plan Problem List/Assessment/Plan Plan/Recommendation ASSESSMENT AND PLAN: ID Problem List: - HIV/AIDS -HIV infection; non-adherent to therapy; viral load unknown; CD4 pending -Watery diarrhea with abdominal pain, nausea/vomiting; CT with distal colonic/rectal mucosal thickening (infectious vs inflammatory colitis vs underdistension) -Headache in the setting of untreated HIV (OI rule-out indicated) -Right middle and lower lobe pulmonary infiltrates (pneumonia vs other) -Urinalysis consistent with cystitis/UTI (LE 3+, nitrites 2+, WBC 31/HPF, few bacteria) -Mild tachycardia; oxygenation acceptable on room air -Substance use: alcohol and amphetamines; no tobacco -Unhoused; occasionally stays with friend in [place] -MSM with recent unknown sexual contacts -Incidental CT finding: sclerosis of bilateral femoral heads, suggestive of avascular necrosis; no articular collapse noted - GPC bacteremia Assessment This is a 54-year-old male with known HIV (not on ART) presenting with headache, watery diarrhea, abdominal pain, nausea, and vomiting. He is a poor historian. Initial labs show WBC 7.2, Hgb 11.9, Plt 319; BMP notable for Cr 0.96, BUN 12, Na 138; LFTs within normal limits. UA suggests cystitis/UTI. CT abdomen/pelvis (non-contrast) shows distal colon/rectal mucosal thickening (infectious vs inflammatory colitis vs underdistension), right middle and lower lobe infiltrates, mild bladder wall thickening, and bilateral femoral head sclerosis suggestive of avascular necrosis. C. difficile testing negative. He is mildly tachycardic; oxygen saturation mid-90s on room air. Given untreated HIV and symptoms (headache, diarrhea), opportunistic infections remain a concern pending CD4/viral load. cd4 count 01/24: ongoing diarrhea, rxed symtuza, poor compliance, positive for syphilis 1:8 titer (no treatment hx locally per [facility]) 01/25: loose stools. cryptococcal antigen test and HIV RNA levels tests were misprocessed Plan: - repeat HIV RNA level - PATIENT IS NOT A TB RULE OUT. no respiratory or CXR findings noted. no isolation needed. quantiferon tb is HIV ART management. please continue with brain MRI - repeat blood cultures - will need to treat syphilis as presumed late latent disease (acquire Lumbar puncture if headaches worsen (protein, cell count, glucose, bacterial culture, VDRL)): 100mg doxycycline po bid x 28 days - agree w/ vancomycin for GPC bacteremia, check TTE and acute hepatitis panel given drug use history - diarrhea is chronic, ensure electrolytes are repleted - will need stool culture, c.diff testing, stool O&P x3, CMV ab serology - can start Biktarvy for now to improve compliance and reduce HIV viral load -Diagnostics: - check genosure to determine appropriate ART regimen -HIV staging: CD4 count and HIV viral load pending (follow up). 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 -Stool testing: stool culture, ova and parasites; consider expanded GI panel (BioFire) if CD4 <100. -Microbiology: blood cultures, urine culture. -Serologies: CMV antibodies, cryptococcal antibodies/antigen, and Toxoplasma antibodies; additional workup guided by CD4/viral load. -TB evaluation prior to ART initiation as clinically indicated. -Antimicrobial therapy: -Patient was started on levofloxacin and metronidazole (Flagyl) on admission. -Continue metronidazole for colitis coverage per current plan. -Consider TMP-SMX (Bactrim) if concern for PJP arises; patient is only minimally hypoxic and not currently requiring oxygen. No need for ceftriaxone per current assessment. -Supportive care: -Fluid resuscitation and electrolyte monitoring/repletion given frequent bowel movements and risk for depletion. -Infection control: -Isolation Precautions: standard. -Disposition/Follow-up: -Monitor vital signs, oxygenation, fluid status, and clinical response. -Adjust antimicrobial and diagnostic plan based on pending results (CD4, viral load, cultures, serologies, MRI findings). Assessment and plan was discussed with the patient as written above. Plan is subject to change pending incorporation of new incoming information/diagnostics. Updates may be added as addendum at the bottom (or top) of this note. Physical Exam: General: NAD Neck: Supple. No masses. HEENT: PERRL. Normal lids and conjunctiva. Moist mucous membranes. Oropharynx without lesions, exudates, or excessive erythema. Normal appearance of the external aspects of the nose and ears. Heart: Mild tachycardia. Regular rhythm. No lower extremity edema noted. Lungs: Normal respiratory effort. Clear to auscultation bilaterally. No wheezes. No crackles. Abdomen: Soft. Non-tender. Non-distended. No masses or abdominal hernia. Msk: No digital cyanosis. Strength 5/5 in upper extremities. No lower extremity strength. Skin: Warm and dry, no rashes. Neuro: Alert and oriented. No facial droop or slurred speech. Extra- ocular movements intact. Sensation intact to soft touch in all 4 limbs. Psych: Appropriate mood. Full affect. Oriented to person, place, time, and situation. Plan discussed with: Patient Dietary Evaluation Review Recommendations by RD: Increase Calorie Intake Comments: Nutrition Recommendation: 1) Consider NCS soft diet 2) Monitor PO intake, lab values, weight trend, and I/O Expected Outcomes/Goals: Intake to meet >75% estimated needs FU 3-5 days SUNDAY DONATO MD Jan 28, 2025 16:40
--- NOTE | 2025-01-28 16:41 | DVHPN2 ---
Consult Progress Note Date Seen: Jan 27, 2025 Subjective Patient reports: Feels better (loose stools improving) Objective vital signs Vital Sign Date Time Temp Pulse Resp B/P (MAP) Pulse Ox O2 Delivery O2 Flow Rate FiO2 01/28/25 13:00 98.2 84 20 102/74 (83) 98 98.2 01/28/25 08:03 Room Air* 0 21 Total Intake and Output 01/27/25 01/27/25 01/28/25 15:00 23:00 07:00 Intake Total 400 ml 1700 ml Output Total 600 ml 1900 ml Balance -200 ml -200 ml medications Current Medications Medications Dose Ordered Sig/Joni Route Start Time Stop Time Status Last Admin Dose Admin Acetaminophen/ Hydrocodone Bitart 1 tab Q4HP PRN PO 01/22/25 09:45 01/26/25 19:54 1 TAB Ondansetron HCl 4 mg Q4HP PRN IV 01/22/25 09:45 Acetaminophen 650 mg Q6HP PRN PO 01/22/25 09:45 01/28/25 06:03 650 MG Morphine Sulfate 2 mg Q4HPRN PRN IV 01/22/25 09:45 Famotidine 20 mg DAILY IV 01/23/25 10:00 01/28/25 10:41 20 MG Citalopram Hydrobromide 40 mg DAILY PO 01/23/25 09:00 01/28/25 10:41 40 MG Enoxaparin Sodium 40 mg DAILY SC 01/23/25 10:00 01/28/25 10:41 40 MG Levofloxacin/ Dextrose 100 ml @ 100 mls/hr DAILY IV 01/25/25 10:00 01/28/25 10:40 100 MLS/HR Vancomycin HCl 0 ml @ 0 mls/hr PER PHARMACY IV 01/25/25 10:00 Doxycycline Monohydrate 100 mg Q12HR PO 01/25/25 10:00 01/28/25 10:41 100 MG Vancomycin HCl 250 ml @ 250 mls/hr Q12H IV 01/28/25 14:00 01/28/25 13:08 250 MLS/HR laboratory and microbiology Laboratory Tests 01/28/25 08:45 Test 01/28/25 08:45 Range/Units Serum Glucose 114 H 74-106 mg/dL Problem List/Assessment/Plan Problem List/Assessment/Plan Plan/Recommendation ASSESSMENT AND PLAN: ID Problem List: - HIV/AIDS -HIV infection; non-adherent to therapy; viral load unknown; CD4 pending -Watery diarrhea with abdominal pain, nausea/vomiting; CT with distal colonic/rectal mucosal thickening (infectious vs inflammatory colitis vs underdistension) -Headache in the setting of untreated HIV (OI rule-out indicated) -Right middle and lower lobe pulmonary infiltrates (pneumonia vs other) -Urinalysis consistent with cystitis/UTI (LE 3+, nitrites 2+, WBC 31/HPF, few bacteria) -Mild tachycardia; oxygenation acceptable on room air -Substance use: alcohol and amphetamines; no tobacco -Unhoused; occasionally stays with friend in [place] -MSM with recent unknown sexual contacts -Incidental CT finding: sclerosis of bilateral femoral heads, suggestive of avascular necrosis; no articular collapse noted - GPC bacteremia Assessment This is a 54-year-old male with known HIV (not on ART) presenting with headache, watery diarrhea, abdominal pain, nausea, and vomiting. He is a poor historian. Initial labs show WBC 7.2, Hgb 11.9, Plt 319; BMP notable for Cr 0.96, BUN 12, Na 138; LFTs within normal limits. UA suggests cystitis/UTI. CT abdomen/pelvis (non-contrast) shows distal colon/rectal mucosal thickening (infectious vs inflammatory colitis vs underdistension), right middle and lower lobe infiltrates, mild bladder wall thickening, and bilateral femoral head sclerosis suggestive of avascular necrosis. C. difficile testing negative. He is mildly tachycardic; oxygen saturation mid-90s on room air. Given untreated HIV and symptoms (headache, diarrhea), opportunistic infections remain a concern pending CD4/viral load. cd4 count 01/24: ongoing diarrhea, rxed symtuza, poor compliance, positive for syphilis 1:8 titer (no treatment hx locally per [facility]) 01/25: loose stools. cryptococcal antigen test and HIV RNA levels tests were misprocessed 01/26: staphylococcal simulans in blood, oxacillin resistant, TTE wo valvular disease, negative for hepatitis Plan: - repeat HIV RNA level - PATIENT IS NOT A TB RULE OUT. no respiratory or CXR findings noted. no isolation needed. quantiferon tb is HIV ART management. please continue with brain MRI - repeat blood cultures - will need to treat syphilis as presumed late latent disease (acquire Lumbar puncture if headaches worsen (protein, cell count, glucose, bacterial culture, VDRL)): 100mg doxycycline po bid x 28 days - agree w/ vancomycin for GPC bacteremia, - diarrhea is chronic, ensure electrolytes are repleted - will need stool culture, c.diff testing, stool O&P x3, CMV ab serology - can start Biktarvy for now to improve compliance and reduce HIV viral load -Diagnostics: - check genosure to determine appropriate ART regimen -HIV staging: CD4 count and HIV viral load pending (follow up). 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 -Stool testing: stool culture, ova and parasites; consider expanded GI panel (BioFire) if CD4 <100. -Microbiology: blood cultures, urine culture. -Serologies: CMV antibodies, cryptococcal antibodies/antigen, and Toxoplasma antibodies; additional workup guided by CD4/viral load. -TB evaluation prior to ART initiation as clinically indicated. -Antimicrobial therapy: -Patient was started on levofloxacin and metronidazole (Flagyl) on admission. -Continue metronidazole for colitis coverage per current plan. -Consider TMP-SMX (Bactrim) if concern for PJP arises; patient is only minimally hypoxic and not currently requiring oxygen. No need for ceftriaxone per current assessment. -Supportive care: -Fluid resuscitation and electrolyte monitoring/repletion given frequent bowel movements and risk for depletion. -Infection control: -Isolation Precautions: standard. -Disposition/Follow-up: -Monitor vital signs, oxygenation, fluid status, and clinical response. -Adjust antimicrobial and diagnostic plan based on pending results (CD4, viral load, cultures, serologies, MRI findings). Assessment and plan was discussed with the patient as written above. Plan is subject to change pending incorporation of new incoming information/diagnostics. Updates may be added as addendum at the bottom (or top) of this note. Physical Exam: General: NAD Neck: Supple. No masses. HEENT: PERRL. Normal lids and conjunctiva. Moist mucous membranes. Oropharynx without lesions, exudates, or excessive erythema. Normal appearance of the external aspects of the nose and ears. Heart: Mild tachycardia. Regular rhythm. No lower extremity edema noted. Lungs: Normal respiratory effort. Clear to auscultation bilaterally. No wheezes. No crackles. Abdomen: Soft. Non-tender. Non-distended. No masses or abdominal hernia. Msk: No digital cyanosis. Strength 5/5 in upper extremities. No lower extremity strength. Skin: Warm and dry, no rashes. Neuro: Alert and oriented. No facial droop or slurred speech. Extra- ocular movements intact. Sensation intact to soft touch in all 4 limbs. Psych: Appropriate mood. Full affect. Oriented to person, place, time, and situation. Plan discussed with: Patient Dietary Evaluation Review Recommendations by RD: Increase Calorie Intake Comments: Nutrition Recommendation: 1) Consider NCS soft diet 2) Monitor PO intake, lab values, weight trend, and I/O Expected Outcomes/Goals: Intake to meet >75% estimated needs FU 3-5 days SUNDAY DONATO MD Jan 28, 2025 16:41
--- NOTE | 2025-01-28 16:48 | DVHPN2 ---
Consult Progress Note Date Seen: Jan 28, 2025 Subjective Patient reports: Feels better (headaches improved, ongoing loose stools.) Objective vital signs Vital Sign Date Time Temp Pulse Resp B/P (MAP) Pulse Ox O2 Delivery O2 Flow Rate FiO2 01/28/25 13:00 98.2 84 20 102/74 (83) 98 98.2 01/28/25 08:03 Room Air* 0 21 Total Intake and Output 01/27/25 01/27/25 01/28/25 15:00 23:00 07:00 Intake Total 400 ml 1700 ml Output Total 600 ml 1900 ml Balance -200 ml -200 ml medications Current Medications Medications Dose Ordered Sig/Joni Route Start Time Stop Time Status Last Admin Dose Admin Acetaminophen/ Hydrocodone Bitart 1 tab Q4HP PRN PO 01/22/25 09:45 01/26/25 19:54 1 TAB Ondansetron HCl 4 mg Q4HP PRN IV 01/22/25 09:45 Acetaminophen 650 mg Q6HP PRN PO 01/22/25 09:45 01/28/25 06:03 650 MG Morphine Sulfate 2 mg Q4HPRN PRN IV 01/22/25 09:45 Famotidine 20 mg DAILY IV 01/23/25 10:00 01/28/25 10:41 20 MG Citalopram Hydrobromide 40 mg DAILY PO 01/23/25 09:00 01/28/25 10:41 40 MG Enoxaparin Sodium 40 mg DAILY SC 01/23/25 10:00 01/28/25 10:41 40 MG Levofloxacin/ Dextrose 100 ml @ 100 mls/hr DAILY IV 01/25/25 10:00 01/28/25 10:40 100 MLS/HR Vancomycin HCl 0 ml @ 0 mls/hr PER PHARMACY IV 01/25/25 10:00 Doxycycline Monohydrate 100 mg Q12HR PO 01/25/25 10:00 01/28/25 10:41 100 MG Vancomycin HCl 250 ml @ 250 mls/hr Q12H IV 01/28/25 14:00 01/28/25 13:08 250 MLS/HR laboratory and microbiology Laboratory Tests 01/28/25 08:45 Test 01/28/25 08:45 Range/Units Serum Glucose 114 H 74-106 mg/dL Problem List/Assessment/Plan Problem List/Assessment/Plan Plan/Recommendation ASSESSMENT AND PLAN: ID Problem List: - HIV/AIDS -HIV infection; non-adherent to therapy; viral load unknown; CD4 pending -Watery diarrhea with abdominal pain, nausea/vomiting; CT with distal colonic/rectal mucosal thickening (infectious vs inflammatory colitis vs underdistension) -Headache in the setting of untreated HIV (OI rule-out indicated) -Right middle and lower lobe pulmonary infiltrates (pneumonia vs other) -Urinalysis consistent with cystitis/UTI (LE 3+, nitrites 2+, WBC 31/HPF, few bacteria) -Mild tachycardia; oxygenation acceptable on room air -Substance use: alcohol and amphetamines; no tobacco -Unhoused; occasionally stays with friend in [place] -MSM with recent unknown sexual contacts -Incidental CT finding: sclerosis of bilateral femoral heads, suggestive of avascular necrosis; no articular collapse noted - GPC bacteremia Assessment This is a 54-year-old male with known HIV (not on ART) presenting with headache, watery diarrhea, abdominal pain, nausea, and vomiting. He is a poor historian. Initial labs show WBC 7.2, Hgb 11.9, Plt 319; BMP notable for Cr 0.96, BUN 12, Na 138; LFTs within normal limits. UA suggests cystitis/UTI. CT abdomen/pelvis (non-contrast) shows distal colon/rectal mucosal thickening (infectious vs inflammatory colitis vs underdistension), right middle and lower lobe infiltrates, mild bladder wall thickening, and bilateral femoral head sclerosis suggestive of avascular necrosis. C. difficile testing negative. He is mildly tachycardic; oxygen saturation mid-90s on room air. Given untreated HIV and symptoms (headache, diarrhea), opportunistic infections remain a concern pending CD4/viral load. cd4 count 01/24: ongoing diarrhea, rxed symtuza, poor compliance, positive for syphilis 1:8 titer (no treatment hx locally per [facility]) 01/25: loose stools. cryptococcal antigen test and HIV RNA levels tests were misprocessed 01/26: staphylococcal simulans in blood, oxacillin resistant, TTE wo valvular disease, negative for hepatitis 01/27: brain MRI: No recent infarct or other acute intracranial abnormality. 01/28: toxoplasma IgG and CMV iGG positive. quantiferon gold negative Plan: - repeat HIV RNA level - repeat blood cultures ngtd - ok to start biktarvy empirically while awaiting genosure testing (rx to in house pharmacy, patient should start at discharge or preferably while inpatient) - IF patient does not acquire bikarvy prior to discharge, please start azithromycin 1 tab daily and bactrim 1DS daily as prophylaxis for AIDS x 30 days - will need to treat syphilis as presumed late latent disease (acquire Lumbar puncture if headaches worsen (protein, cell count, glucose, bacterial culture, VDRL)): 100mg doxycycline po bid x 28 days - continue vancomycin while inpatient for bacteremia (will be covered by doxycycline for syphilis treatment as outpatient) - diarrhea is chronic, ensure electrolytes are repleted - can start Biktarvy for now to improve compliance and reduce HIV viral load, HIV enteritis treatment - patient is clear for dc so long as patient does not require IV electrolyte repletion. diarrhea will likely improve with biktarvy compliance, fu in ID clinic in 2 weeks for monitoring of diarrhea, boarder for workup for enteric AIDS pathogens. -Diagnostics: - check genosure to determine appropriate ART regimen -HIV staging: CD4 count and HIV viral load pending (follow up). 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 -Stool testing: stool culture, ova and parasites; consider expanded GI panel (BioFire) if CD4 <100. -Microbiology: blood cultures, urine culture. -Serologies: CMV antibodies, cryptococcal antibodies/antigen, and Toxoplasma antibodies; additional workup guided by CD4/viral load. -TB evaluation prior to ART initiation as clinically indicated. -Antimicrobial therapy: -Patient was started on levofloxacin and metronidazole (Flagyl) on admission. -Continue metronidazole for colitis coverage per current plan. -Consider TMP-SMX (Bactrim) if concern for PJP arises; patient is only minimally hypoxic and not currently requiring oxygen. No need for ceftriaxone per current assessment. -Supportive care: -Fluid resuscitation and electrolyte monitoring/repletion given frequent bowel movements and risk for depletion. -Infection control: -Isolation Precautions: standard. -Disposition/Follow-up: -Monitor vital signs, oxygenation, fluid status, and clinical response. -Adjust antimicrobial and diagnostic plan based on pending results (CD4, viral load, cultures, serologies, MRI findings). Assessment and plan was discussed with the patient as written above. Plan is subject to change pending incorporation of new incoming information/diagnostics. Updates may be added as addendum at the bottom (or top) of this note. Physical Exam: General: NAD Neck: Supple. No masses. HEENT: PERRL. Normal lids and conjunctiva. Moist mucous membranes. Oropharynx without lesions, exudates, or excessive erythema. Normal appearance of the external aspects of the nose and ears. Heart: Mild tachycardia. Regular rhythm. No lower extremity edema noted. Lungs: Normal respiratory effort. Clear to auscultation bilaterally. No wheezes. No crackles. Abdomen: Soft. Non-tender. Non-distended. No masses or abdominal hernia. Msk: No digital cyanosis. Strength 5/5 in upper extremities. No lower extremity strength. Skin: Warm and dry, no rashes. Neuro: Alert and oriented. No facial droop or slurred speech. Extra- ocular movements intact. Sensation intact to soft touch in all 4 limbs. Psych: Appropriate mood. Full affect. Oriented to person, place, time, and situation. Plan discussed with: Patient Dietary Evaluation Review Recommendations by RD: Increase Calorie Intake Comments: Nutrition Recommendation: 1) Consider NCS soft diet 2) Monitor PO intake, lab values, weight trend, and I/O Expected Outcomes/Goals: Intake to meet >75% estimated needs FU 3-5 days SUNDAY DONATO MD Jan 28, 2025 16:48
[2025-01-28] MEDS ORDERED: SULFAMETHOX W/TRIMETH(800/160MG) DS TAB PO SCH (17:00)
[2025-01-29] VITALS (7 sets, daily range): BP systolic 98–132; BP diastolic 66–95; PULSE 72–91; RESP 14–19; TEMP 96.8–98.7; O2SAT 0–97
[2025-01-29 05:21] LABS: Anion Gap 7 (5-15); Carbon Dioxide 25 mmol/L (20-31); Chloride 102 mmol/L (98-107); Potassium 4.2 mmol/L (3.5-5.1)
[2025-01-29 05:22] LABS: Calcium 8.9 mg/dL (8.7-10.4); Sodium 134 mmol/L (136-145)
[2025-01-29 05:26] LABS: Glucose 83 mg/dL (74-106)
[2025-01-29 05:27] LABS: BUN/Creatinine Ratio 14.5 (10.0-20.0); Blood Urea Nitrogen 12 mg/dL (9-23); Magnesium 1.9 mg/dL (1.6-2.6)
[2025-01-29] MEDS: SULFAMETHOX W/TRIMETH(800/160MG) DS TAB PO SCH (10:55)
[2025-01-29] MEDS ORDERED: AZITHROMYCIN 250 MG TAB PO SCH (15:30)
--- NOTE | 2025-01-29 15:45 | DVHPNRES ---
Progress Note Date Seen: Jan 29, 2025 Resident Creating Document: SARAH CARRILLO RESIDENT Medical Necessity Reason Pt with a Central, PICC or Fol: No Subjective Review of Systems patient is 54 years old male with a history of HIV for 20 years noncompliant with the medication, not taking medication for last 4 years as it ran out, depression came with a complaint of abdominal pain and diarrhea. As per patient he has been having Bloody diarrhea couple of episode every day for last one weeks. patient also endorsed abdominal pain crampy, continuous in nature, 8/10 for last 1 month. On further inquiry patient also endorsed nausea and vomiting x2, nonbloody. Patient reported feeling chills and fever but did not record temperature. Patient reported he is not taking his HIV medication which ran out 4 month before because of the financial issue. Denied any rash, chest pain, shortness of breath acute joint redness or swelling dysarthria or change in vision. Denied any colonoscopy or endoscopy before. Initial lab workup revealed WBC 7.2, hemoglobin 11.9, RDW 15.9, eosinophil 45, neutrophil 35. A1c 5.6, UDS positive for methamphetamine. urinalysis revealed leukocyte esterase 3+, nitrite 3+, WBC 31, bacteria many. CT abdomen and pelvis revealed-1. Mucosal thickening of the distal sigmoid colon and rectum may be due to underdistention or represent infectious/inflammatory colitis. Right middle and lower lobe infiltrates. Serpiginous sclerosis in the bilateral femoral heads suggesting avascular necrosis. No articular collapse. Mild wall thickening of the urinary bladder may be related to underdistention. Cystitis is not excluded. PMH- HIV, depression PSH- none Allergy- NKDA Personal History/ Social History- denies smoking, denies alcoholism, use amphetamine, lives with a friend/? Homeless ROS Cardiovascular- deny acute chest pain or shortness of breath or cough or palpitation Respiratory denies cough or short of breath or wheezing Gastrointestinal- abdominal pain, nausea or vomiting Musculoskeletal-denies acute joint swelling or tenderness or redness Neurological- denies acute dysarthria, dysphagia, change in vision Psychiatry- denies depression or SI or HI Skin- denies acute rash or purpura Patient was seen today at bedside, labs and chart reviewed. 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 Objective vital signs Vital Sign Date Time Temp Pulse Resp B/P (MAP) Pulse Ox O2 Delivery O2 Flow Rate FiO2 01/29/25 12:31 97.6 86 18 106/72 (83) 95 97.6 01/29/25 08:00 Room Air* 0 21 Total Intake and Output 01/28/25 01/28/25 01/29/25 15:00 23:00 07:00 Intake Total 1370 ml 600 ml Output Total 600 ml Balance 1370 ml 0 ml medications Current Medications Medications Dose Ordered Sig/Joni Route Start Time Stop Time Status Last Admin Dose Admin Acetaminophen/ Hydrocodone Bitart 1 tab Q4HP PRN PO 01/22/25 09:45 01/29/25 02:21 1 TAB Ondansetron HCl 4 mg Q4HP PRN IV 01/22/25 09:45 Acetaminophen 650 mg Q6HP PRN PO 01/22/25 09:45 01/28/25 21:41 650 MG Morphine Sulfate 2 mg Q4HPRN PRN IV 01/22/25 09:45 Famotidine 20 mg DAILY IV 01/23/25 10:00 01/29/25 10:54 20 MG Citalopram Hydrobromide 40 mg DAILY PO 01/23/25 09:00 01/29/25 10:55 40 MG Enoxaparin Sodium 40 mg DAILY SC 01/23/25 10:00 01/29/25 10:54 40 MG Vancomycin HCl 0 ml @ 0 mls/hr PER PHARMACY IV 01/25/25 10:00 Doxycycline Monohydrate 100 mg Q12HR PO 01/25/25 10:00 01/29/25 10:55 100 MG Vancomycin HCl 250 ml @ 250 mls/hr Q12H IV 01/28/25 14:00 01/29/25 14:51 250 MLS/HR Trimethoprim/ Sulfamethoxazole 1 tab DAILY PO 01/29/25 10:00 01/29/25 10:55 1 TAB Trimethoprim/ Sulfamethoxazole 1 tab DAILY PO 01/28/25 17:00 UNV Patient Own Medication 1 DAILY PO 01/29/25 10:00 Azithromycin 1,250 mg QWEEKLY PO 01/29/25 15:30 Examination General examination- malnourished HEENT- PEERLA, no acute nasal discharge Cardiovascular- S1-S2 audible, rate and rhythm regular, no murmur Respiratory- CTAB, no wheeze or rhonchi Gastrointestinal- mild diffuse abdominal tenderness present, bowel sound+. Nondistended Musculoskeletal-no acute joint swelling or tenderness or redness Lower extremity- no leg edema Neurological- cranial nerves intact, no acute dysarthria or dysphagia Psychiatry- denies depression or SI or HI Skin- no acute rash or purpura laboratory and microbiology Laboratory Tests 01/29/25 04:38 01/28/25 08:45 Test 01/29/25 04:38 Range/Units Serum Glucose 83 74-106 mg/dL Microbiology Date/Time Source Procedure Growth Status 01/25/25 11:07 Blood Blood Culture - Preliminary NO GROWTH AFTER 72 HOURS OF INCUBATION. Resulted 01/24/25 18:00 Stool Stool Culture - Final Complete 01/24/25 18:00 Stool Shiga Toxin I & II - Final Complete 01/22/25 07:48 Voided Urine Urine Culture - Final Escherichia coli Complete Problem List/Assessment/Plan Problem List/Assessment/Plan Assessment and plan # acute intractable nausea and vomiting and abdominal pain likely due to acute sigmoid colitis and proctitis # acute gastroenteritis likely due to above # bacteremia - CT abdomen and pelvis revealed-1. Mucosal thickening of the distal sigmoid colon and rectum may be due to underdistention or represent infectious/inflammatory colitis. -negative for C diff - ordered stool -WBC few, - stool for occult blood test-negative so far - pending stool culture - on 01/23/2025 blood culture Gram-positive cocci in cluster so far -repeat blood culture on 01/26/2020 negative -penicillin, Bactrim, linezolid was discontinued by Dr. Ton Miller infectious disease Urine culture positive for E coli Stool for shiga toxin negative Neisseria gonorrhea and chlamydia trachomatis negative -continue metronidazole as prescribed -continue vancomycin as prescribed -ordered IV doxycycline as prescribed -continue levofloxacin as prescribed -patient was seen by infectious disease -commended-ordered chlamydia/gonococcal, troponin pallidum, QuantiFERON TB gold test, toxoplasma Wagner test, cryptococcal antibody, CMV immunoglobulin, brain head without contrast. -Echo 2D to rule out endocarditis-LVEF 65% --Cardiology recommended patient does not meet the criteria for infective endocarditis, so no further workup is needed - Infectious disease recommended to start Biktarvy, Bactrim for PCP prophylaxis, azithromycin for MAC prophylaxis and doxycycline for syphilis. # suspected pneumonia, - CT scan- Right middle and lower lobe infiltrates -continue current antibiotics as prescribed -patient is seen by infectious disease, recommendation reviewed and appreciated #Syphilis -treponema pallidum antibody reactive -RPR reactive -RPR titer 1 is to 8 -Neisseria gonorrhea and chlamydia trachomatis negative -penicillin was discontinued by Infectious disease specialist Dr. Camilo -patient was started on doxycycline -continue monitoring clinically #UTI -urinalysis revealed leukocyte esterase 3+, nitrite 3+, WBC 31, bacteria many -urine culture positive for E coli, sensitive to levofloxacin - CT abdomen and pelvis-Mild wall thickening of the urinary bladder may be related to under distention. -continue current IV antibiotic levofloxacin # HIV -MRI of the brain-No recent infarct or other acute intracranial abnormality. - % of CD4 cell 3.9, absolute CD4 cell count 43, T lymphocytes CD4/CD8 ratio 0.10, % of CD 8 cells 39.3, absolute CD8 432. - ordered HIV viral load -continue current treatment -Plan is to discussed with a doctor came in regarding prophylaxis for toxoplasma/PCP as patient's CD4 cell count was 43 # Substance abuse, UDS positive for methamphetamine - patient was counseled about the effect of substance abuse on health # depression - restarted home medication citalopram # Serpiginous sclerosis in the bilateral femoral heads suggesting avascular necrosis-CT scan finding -follow up outpatient with the primary care physician # homeless -social service is working on getting patient a place to stay, transportation also getting anterior triple therapy once discharged Goals of care, Code status full code; PUD prophylaxis: pantoprazole DVT prophylaxis: lovenox Patient reported he does not have any family I can talk to Plan discussed with Dr. Devi, nursing staff, Total time spent on patient evaluation, chart review, assessment and plan, discussion discussion >35 minutes Plan discussed with: Patient, Other Dietary Evaluation Review Recommendations by RD: Increase Calorie Intake Comments: Nutrition Recommendation: 1) Consider NCS soft diet 2) Monitor PO intake, lab values, weight trend, and I/O Expected Outcomes/Goals: Intake to meet >75% estimated needs FU 3-5 days Visit Coding STANDARD RES Billing Provider: MADISON DEVI MD Date of Service if different f: Jan 29, 2025 Common Visit Codes: [id number] INP/OBS CARE(HIGH) SARAH CARRILLO RESIDENT Jan 29, 2025 15:45
[2025-01-29] MEDS: AZITHROMYCIN 250 MG TAB PO ONE (17:47)
[2025-01-30 01:00] VITALS: BP 116/82; PULSE 85; RESP 16; TEMP 97.9; O2SAT 98
[2025-01-30 05:01] VITALS: BP 108/81; PULSE 80; RESP 14; TEMP 97.9; O2SAT 98
[2025-01-30 05:27] LABS: Chloride 102 mmol/L (98-107); Potassium 4.3 mmol/L (3.5-5.1); Sodium 134 mmol/L (136-145)
[2025-01-30 05:28] LABS: Anion Gap 7 (5-15); Calcium 8.8 mg/dL (8.7-10.4); Carbon Dioxide 25 mmol/L (20-31)
[2025-01-30 05:33] LABS: BUN/Creatinine Ratio 14.0 (10.0-20.0); Blood Urea Nitrogen 14 mg/dL (9-23); Glucose 77 mg/dL (74-106)
[2025-01-30 09:00] VITALS: BP 100/70; PULSE 76; RESP 18; TEMP 98.1; O2SAT 97
--- NOTE | 2025-01-30 12:22 | DVHDSRES ---
Discharge Summary Date of Admission Resident Creating Document: SARAH CARRILLO RESIDENT Jan 22, 2025 at 09:41 Date of Discharge: Jan 30, 2025 Admitting Diagnosis Acute colitis and proctitis Labs/Diagnostic Data: Laboratory Results Test 01/30/25 04:40 01/30/25 00:52 01/29/25 04:38 01/28/25 08:45 Sodium Level 134 mmol/L (136-145) Potassium Level 4.3 mmol/L (3.5-5.1) Chloride Level 102 mmol/L (98-107) Carbon Dioxide Level 25 mmol/L (20-31) Anion Gap 7 (5-15) Blood Urea Nitrogen 14 mg/dL (9-23) Creatinine 1.00 mg/dL (0.700-1.30) Glomerular Filtration Rate Calc 88 mL/min (>90) BUN/Creatinine Ratio 14.0 (10.0-20.0) Serum Glucose 77 mg/dL (74-106) Calcium Level 8.8 mg/dL (8.7-10.4) Vancomycin Level Trough 15.5 ug/mL (5-10) Magnesium Level 1.9 mg/dL (1.6-2.6) White Blood Count 6.0 10^3/uL (4.4-10.8) Red Blood Count 3.95 10^6/uL (4.5-5.90) Hemoglobin 11.5 g/dL (13.5-17.5) Hematocrit 34.5 % (41.0-53.0) Mean Corpuscular Volume 87.4 fL (80.0-100.0) Mean Corpuscular Hemoglobin 29.0 pg (28.0-32.0) Mean Corpuscular Hemoglobin Concent 33.2 g/dL (32.0-36.0) Red Cell Distribution Width 16.2 % (11.8-14.3) Platelet Count 318 10^3/uL (140-450) Mean Platelet Volume 7.6 fL (6.9-10.8) Neutrophils (%) (Auto) % (37.0-80.0) Lymphocytes (%) (Auto) % (10.0-50.0) Monocytes (%) (Auto) % (0.0-12.0) Eosinophils (%) (Auto) % (0.0-7.0) Basophils (%) (Auto) % (0.0-2.0) Neutrophils # (Auto) 10 ^3/uL (1.6-8.6) Lymphocytes # (Auto) 10 ^3/uL (0.4-5.4) Monocytes # (Auto) 10 ^3/uL (0-1.3) Differential Total Cells Counted 100.0 (100) Neutrophils % (Manual) 26 (37.0-80.0) Band Neutrophils % (Manual) 0 Lymphocytes % (Manual) 19 (10.0-50.0) Monocytes % (Manual) 5 (0-12) Eosinophils % (Manual) 50 (0-7) Basophils % (Manual) 0 (0.0-2.0) Metamyelocytes % (manual) 0 Myelocytes % (Manual) 0 Promyelocytes % (Manual) 0 Blast Cells % (Manual) 0 Reactive Lymphocytes 0 Platelet Estimate Adequate Red Blood Cell Morphology Normal Test 01/27/25 04:36 01/25/25 11:00 01/24/25 18:00 01/24/25 09:00 Total Bilirubin 0.3 mg/dL (0.2-1.0) Aspartate Amino Transferase (AST) 49 U/L (13-40) Alanine Aminotransferase (ALT) 30 U/L (7-40) Alkaline Phosphatase 89 U/L (46-116) Total Protein 8.6 g/dL (5.7-8.2) Albumin 3.1 g/dL (3.2-4.8) HIV-1 RNA (PCR) copies/mL (.) HIV-1 RNA (PCR) log10 Value (.) Stool for White Cells Few Chlamydia trachomatis (DOMINIC) Negative (Negative) Neisseria gonorrhoeae (DOMINIC) Negative (Negative) Test 01/24/25 04:45 01/23/25 16:50 01/23/25 14:24 01/23/25 14:19 Plasma/Serum Blood Alcohol < 3.0 mg/dL (<10) POC Glucose 141 mg/dl (70-106) TB Test (QFT) Gold Plus Negative (Negative) TB Test (QFT) Nil 0.18 IU/mL (.) TB Test (QFT) Mitogen 3.62 IU/mL (.) TB Test (QFT) Antigen 1 0.17 IU/mL (.) TB Test (QFT) Antigen 2 0.16 IU/mL (.) TB Test (QFT) Criteria Comment (.) Rapid Plasma Reagin Titer 1:8 Titer (NONREACTIVE) Rapid Plasma Reagin Reactive (NONREACTIVE) Treponema pallidum Antibody Reactive (Negative) Test 01/23/25 10:53 01/23/25 04:36 01/22/25 07:48 01/22/25 07:45 Absolute Neutrophils (auto) 2.0 x10E3/uL (1.4-7.0) Absolute Lymphocytes (auto) 1.1 x10E3/uL (0.7-3.1) Absolute Monocytes (auto) 0.3 x10E3/uL (0.1-0.9) Absolute Eosinophils (auto) 2.2 x10E3/uL (0.0-0.4) Absolute Basophils (auto) 0.0 x10E3/uL (0.0-0.2) Immature Granulocytes % 0 % (Not Estab.) Immature Granulocytes # 0 x10E3/uL (0.0-0.1) Nucleated Red Blood Cells (.) Immature Blood Cells (.) Hematology Comments Note: (.) Percent CD4 Cells 3.9 % (30.8-58.5) Absolute CD4 Count 43 /uL (359-1519) T-Lymphocyte CD4/CD8 Ratio 0.10 (0.92-3.72) Percent CD8 Cells 39.3 % (12.0-35.5) Absolute CD8 Count 432 /uL (109-897) Hemoglobin A1c 5.8 % A1C (<5.7) Triglycerides Level 85 mg/dL (< 150) Cholesterol Level 97 mg/dL (< 200) LDL Cholesterol 54 mg/dL (< 100) HDL Cholesterol 29 mg/dL (40-59) Lipase 29 U/L (12-53) Vitamin B12 Level 252 pg/mL (211-911) Vitamin D 25-Hydroxy 52.3 ng/mL (30.0-100) Folic Acid 8.46 ng/mL (>5.38) Thyroid Stimulating Hormone (TSH) 1.82 uIU/mL (0.55-4.78) Hepatitis A IgM Antibody Negative Hepatitis B Surface Antigen Negative (Negative) Hepatitis B Core IgM Antibody Negative (Negative) Hepatitis C Antibody Negative (Negative) HIV-1 Antibody Confirmation Reactive (Non Reactive) HIV-2 Antibody Confirmation Non reactive (Non Reactive) HIV (1&2) Ag and Ab, 4th Generation Preliminary reactive (Non HIV (1&2) Antibody Deferred (Negative) HIV (1&2) Antibody Interpretation Hiv-1 positive (.) Urine Color Yellow (Yellow) Urine Clarity Turbid (Clear) Urine pH 6.5 (5.0-9.0) Urine Specific [place] 1.021 (1.001-1.035) Urine Protein Trace (Negative) Urine Ketones Negative (Negative) Urine Blood Trace /uL (Negative) Urine Nitrite 2+ (Negative) Urine Bilirubin Negative (Negative) Urine Urobilinogen 2 mg/dL (Negative) Urine Leukocyte Esterase 3+ /uL (Negative) Urine RBC 7 /hpf (0 - 3) Urine Microscopic WBC 31 /HPF (0-3) Urine Squamous Epithelial Cells Few /hpf (<5) Urine Bacteria Few /hpf (None Seen) Urine Glucose Normal mg/dL (Normal) Urine Opiates Screen Neg (NEGATIVE) Urine Fentanyl Screen Neg (NEGATIVE) Urine Barbiturates Screen Neg (NEGATIVE) Urine Phencyclidine Screen Neg (NEGATIVE) Urine Amphetamines Screen Pos (NEGATIVE) Urine Benzodiazepines Screen Neg (NEGATIVE) Urine Cocaine Screen Neg (NEGATIVE) Urine Cannabinoids Screen Neg (NEGATIVE) Stool Occult Blood Sample #3 Negative (Negative) Other Laboratory Tests 01/30/25 04:40 01/28/25 08:45 Brief Hx & Hospital Course: Patient is 54 years old male with a history of HIV for 20 years noncompliant with the medication (stopped taking TARV for 4 months), depression came with a complaint of abdominal pain and diarrhea. As per patient he has been having Bloody diarrhea couple of episode every day for last one weeks. patient also endorsed abdominal pain crampy, continuous in nature, 8/10 for last 1 month. On further inquiry patient also endorsed nausea and vomiting x2, nonbloody. Patient reported feeling chills and fever but did not record temperature. Denied any rash, chest pain, shortness of breath acute joint redness or swelling dysarthria or change in vision. Denied any colonoscopy or endoscopy before. Initial lab workup revealed WBC 7.2, hemoglobin 11.9, RDW 15.9, eosinophil 45, neutrophil 35. A1c 5.6, UDS positive for methamphetamine. urinalysis revealed leukocyte esterase 3+, nitrite 3+, WBC 31, bacteria many. CT abdomen and pelvis revealed: Mucosal thickening of the distal sigmoid colon and rectum may be due to underdistention or represent infectious/inflammatory colitis. Right middle and lower lobe infiltrates. Serpiginous sclerosis in the bilateral femoral heads suggesting avascular necrosis. No articular collapse. Mild wall thickening of the urinary bladder may be related to underdistention. Cystitis is not excluded. - on 01/23/2025 blood culture Gram-positive cocci in cluster so far. repeat blood culture on 01/26/2020 negative ,Urine culture positive for E coli, Stool for shiga toxin negative, MRI of the brain-No recent infarct or other acute intracranial abnormality. - % of CD4 cell 3.9, absolute CD4 cell count 43, T lymphocytes CD4/CD8 ratio 0.10, % of CD 8 cells 39.3, absolute CD8 432. Patient tested negative for TB gold test, negative for has a gonorrhea and chlamydia, pending toxoplasma Wagner test, CMV immunoglobulin. Patient was seen by infectious disease doctor Ton Miller, initially patient was put on penicillin for syphilis later on changed to doxycycline by Infectious Disease. Transesophageal ECHO negative for endocarditis. LVEF 65%. Patient clinically improved, hemodynamically stable, symptoms resolved. Patient is being discharged with Biktarvy, also doxycycline for 28 days, azithromycin 1200 mg PO for prophylaxis weekly, Bactrim DS daily for 30 days. Patient was advised to follow up at the discharge clinic, PCP and also Infectious Disease doctor Ton Miller, discharged to recuperative care. Patient's meds were sent to the pharmacy electronically. All questions answered. General examination- malnourished HEENT- PEERLA, no acute nasal discharge Cardiovascular- S1-S2 audible, rate and rhythm regular, no murmur Respiratory- CTAB, no wheeze or rhonchi Gastrointestinal- mild diffuse abdominal tenderness present, bowel sound+. Nondistended Musculoskeletal-no acute joint swelling or tenderness or redness Lower extremity- no leg edema Neurological- cranial nerves intact, no acute dysarthria or dysphagia Psychiatry- denies depression or SI or HI Skin- no acute rash or purpura Plan of care discussed with Dr. Triana Consults/Reason for consult Patient: ROCIO MENG Acct: [id number] : 1970 Loc: [facility] Age/Sex: 54/M [id number] Consult Progress Note Date Seen: Jan 27, 2025 Subjective Patient reports: Feels better (loose stools improving) Objective vital signs Vital Sign Date Time Temp Pulse Resp B/P (MAP) Pulse Ox O2 Delivery O2 Flow Rate FiO2 01/28/25 13:00 98.2 84 20 102/74 (83) 98 98.2 01/28/25 08:03 Room Air* 0 21 Total Intake and Output 01/27/25 01/27/25 01/28/25 15:00 23:00 07:00 Intake Total 400 ml 1700 ml Output Total 600 ml 1900 ml Balance -200 ml -200 ml medications Current Medications Medications Dose Ordered Sig/Joni Route Start Time Stop Time Status Last Admin Dose Admin Acetaminophen/ Hydrocodone Bitart 1 tab Q4HP PRN PO 01/22/25 09:45 01/26/25 19:54 1 TAB Ondansetron HCl 4 mg Q4HP PRN IV 01/22/25 09:45 Acetaminophen 650 mg Q6HP PRN PO 01/22/25 09:45 01/28/25 06:03 650 MG Morphine Sulfate 2 mg Q4HPRN PRN IV 01/22/25 09:45 Famotidine 20 mg DAILY IV 01/23/25 10:00 01/28/25 10:41 20 MG Citalopram Hydrobromide 40 mg DAILY PO 01/23/25 09:00 01/28/25 10:41 40 MG Enoxaparin Sodium 40 mg DAILY SC 01/23/25 10:00 01/28/25 10:41 40 MG Levofloxacin/ Dextrose 100 ml @ 100 mls/hr DAILY IV 01/25/25 10:00 01/28/25 10:40 100 MLS/HR Vancomycin HCl 0 ml @ 0 mls/hr PER PHARMACY IV 01/25/25 10:00 Doxycycline Monohydrate 100 mg Q12HR PO 01/25/25 10:00 01/28/25 10:41 100 MG Vancomycin HCl 250 ml @ 250 mls/hr Q12H IV 01/28/25 14:00 01/28/25 13:08 250 MLS/HR laboratory and microbiology Laboratory Tests 01/28/25 08:45 Test 01/28/25 08:45 Range/Units Serum Glucose 114 H 74-106 mg/dL Problem List/Assessment/Plan Problem List/Assessment/Plan Plan/Recommendation ASSESSMENT AND PLAN: ID Problem List: - HIV/AIDS -HIV infection; non-adherent to therapy; viral load unknown; CD4 pending -Watery diarrhea with abdominal pain, nausea/vomiting; CT with distal colonic/rectal mucosal thickening (infectious vs inflammatory colitis vs underdistension) -Headache in the setting of untreated HIV (OI rule-out indicated) -Right middle and lower lobe pulmonary infiltrates (pneumonia vs other) -Urinalysis consistent with cystitis/UTI (LE 3+, nitrites 2+, WBC 31/HPF, few bacteria) -Mild tachycardia; oxygenation acceptable on room air -Substance use: alcohol and amphetamines; no tobacco -Unhoused; occasionally stays with friend in [place] -MSM with recent unknown sexual contacts -Incidental CT finding: sclerosis of bilateral femoral heads, suggestive of avascular necrosis; no articular collapse noted - GPC bacteremia Assessment This is a 54-year-old male with known HIV (not on ART) presenting with headache, watery diarrhea, abdominal pain, nausea, and vomiting. He is a poor historian. Initial labs show WBC 7.2, Hgb 11.9, Plt 319; BMP notable for Cr 0.96, BUN 12, Na 138; LFTs within normal limits. UA suggests cystitis/UTI. CT abdomen/pelvis (non-contrast) shows distal colon/rectal mucosal thickening (infectious vs inflammatory colitis vs underdistension), right middle and lower lobe infiltrates, mild bladder wall thickening, and bilateral femoral head sclerosis suggestive of avascular necrosis. C. difficile testing negative. He is mildly tachycardic; oxygen saturation mid-90s on room air. Given untreated HIV and symptoms (headache, diarrhea), opportunistic infections remain a concern pending CD4/viral load. cd4 count 01/24: ongoing diarrhea, rxed symtuza, poor compliance, positive for syphilis 1:8 titer (no treatment hx locally per [facility]) 01/25: loose stools. cryptococcal antigen test and HIV RNA levels tests were misprocessed 01/26: staphylococcal simulans in blood, oxacillin resistant, TTE wo valvular disease, negative for hepatitis Plan: - repeat HIV RNA level - PATIENT IS NOT A TB RULE OUT. no respiratory or CXR findings noted. no isolation needed. quantiferon tb is HIV ART management. please continue with brain MRI - repeat blood cultures - will need to treat syphilis as presumed late latent disease (acquire Lumbar puncture if headaches worsen (protein, cell count, glucose, bacterial culture, VDRL)): 100mg doxycycline po bid x 28 days - agree w/ vancomycin for GPC bacteremia, - diarrhea is chronic, ensure electrolytes are repleted - will need stool culture, c.diff testing, stool O&P x3, CMV ab serology - can start Biktarvy for now to improve compliance and reduce HIV viral load -Diagnostics: - check genosure to determine appropriate ART regimen -HIV staging: CD4 count and HIV viral load pending (follow up). -AMUSEMENT EQUIPMENT OPERATOR evaluation for OI given headache and untreated HIV: MRI brain to assess for cryptococcoma and toxoplasmosis. -Stool testing: stool culture, ova and parasites; consider expanded GI panel (BioFire) if CD4 <100. -Microbiology: blood cultures, urine culture. -Serologies: CMV antibodies, cryptococcal antibodies/antigen, and Toxoplasma antibodies; additional workup guided by CD4/viral load. -TB evaluation prior to ART initiation as clinically indicated. -Antimicrobial therapy: -Patient was started on levofloxacin and metronidazole (Flagyl) on admission. -Continue metronidazole for colitis coverage per current plan. -Consider TMP-SMX (Bactrim) if concern for PJP arises; patient is only minimally hypoxic and not currently requiring oxygen. No need for ceftriaxone per current assessment. -Supportive care: -Fluid resuscitation and electrolyte monitoring/repletion given frequent bowel movements and risk for depletion. -Infection control: -Isolation Precautions: standard. -Disposition/Follow-up: -Monitor vital signs, oxygenation, fluid status, and clinical response. -Adjust antimicrobial and diagnostic plan based on pending results (CD4, viral load, cultures, serologies, MRI findings). Assessment and plan was discussed with the patient as written above. Plan is subject to change pending incorporation of new incoming information/diagnostics. Updates may be added as addendum at the bottom (or top) of this note. Physical Exam: General: NAD Neck: Supple. No masses. HEENT: PERRL. Normal lids and conjunctiva. Moist mucous membranes. Oropharynx without lesions, exudates, or excessive erythema. Normal appearance of the external aspects of the nose and ears. Heart: Mild tachycardia. Regular rhythm. No lower extremity edema noted. Lungs: Normal respiratory effort. Clear to auscultation bilaterally. No wheezes. No crackles. Abdomen: Soft. Non-tender. Non-distended. No masses or abdominal hernia. Msk: No digital cyanosis. Strength 5/5 in upper extremities. No lower extremity strength. Skin: Warm and dry, no rashes. Neuro: Alert and oriented. No facial droop or slurred speech. Extra- ocular movements intact. Sensation intact to soft touch in all 4 limbs. Psych: Appropriate mood. Full affect. Oriented to person, place, time, and situation. Plan discussed with: Patient Dietary Evaluation Review Recommendations by RD: Increase Calorie Intake Comments: Nutrition Recommendation: 1) Consider NCS soft diet 2) Monitor PO intake, lab values, weight trend, and I/O Expected Outcomes/Goals: Intake to meet >75% estimated needs FU 3-5 days TON MILLER MD Jan 28, 2025 16:41 E/M VISIT PERFORMED BY: TRANSCRIBED BY:TON MILLER MD TRANSCRIBED DATE/TIME:01/28/25 164 ELECTRONICALLY SIGNED BY:TON MILLER MD 01/28/25 164 ELECTRONICALLY CO-SIGNED BY: Patient: ROCIO MENG Acct: [id number] : 1970 Loc: [facility] Age/Sex: 54/M [id number] Consult Progress Note Date Seen: Jan 25, 2025 Subjective Patient reports: Feels better (ongoing intermittent abdominal pain) Objective vital signs Vital Sign Date Time Temp Pulse Resp B/P (MAP) Pulse Ox O2 Delivery O2 Flow Rate FiO2 01/25/25 09:03 98.2 74 18 104/73 (83) 95 98.2 01/24/25 20:00 Room Air* 0 21 Total Intake and Output 01/24/25 01/24/25 01/25/25 15:00 23:00 07:00 Intake Total 720 ml 2140 ml 350 ml Output Total 1500 ml 990 ml Balance 720 ml 640 ml -640 ml medications Current Medications Medications Dose Ordered Sig/Joni Route Start Time Stop Time Status Last Admin Dose Admin Metronidazole 100 ml @ 100 mls/hr Q8HR IV 01/22/25 14:00 01/25/25 04:12 100 MLS/HR Sodium Chloride 1,000 ml @ 120 mls/hr Q8H20M IV 01/22/25 09:45 01/24/25 09:50 120 MLS/HR Acetaminophen/ Hydrocodone Bitart 1 tab Q4HP PRN PO 01/22/25 09:45 01/25/25 05:37 1 TAB Ondansetron HCl 4 mg Q4HP PRN IV 01/22/25 09:45 Acetaminophen 650 mg Q6HP PRN PO 01/22/25 09:45 Morphine Sulfate 2 mg Q4HPRN PRN IV 01/22/25 09:45 Famotidine 20 mg DAILY IV 01/23/25 10:00 01/24/25 09:49 20 MG Citalopram Hydrobromide 40 mg DAILY PO 01/23/25 09:00 01/24/25 09:50 40 MG Enoxaparin Sodium 40 mg DAILY SC 01/23/25 10:00 01/24/25 09:50 40 MG Trimethoprim/ Sulfamethoxazole 0 ml @ 0 mls/hr PER PHARMACY IV 01/23/25 11:30 Trimethoprim/ Sulfamethoxazole 20 ml/Dextrose 270 ml @ 173.333 mls/hr Q8HR IV 01/23/25 14:00 01/25/25 05:38 173.333 MLS/HR Penicillin G Potassium 4061901 units/Dextrose 50 ml @ 100 mls/hr Q4HR IV 01/23/25 18:00 01/25/25 04:12 100 MLS/HR Linezolid 300 ml @ 150 mls/hr Q12H IV 01/24/25 20:00 01/25/25 08:21 150 MLS/HR laboratory and microbiology Laboratory Tests 01/25/25 04:35 Test 01/25/25 04:35 Range/Units Serum Glucose 78 74-106 mg/dL Problem List/Assessment/Plan Problem List/Assessment/Plan Plan/Recommendation ASSESSMENT AND PLAN: ID Problem List: - HIV/AIDS -HIV infection; non-adherent to therapy; viral load unknown; CD4 pending -Watery diarrhea with abdominal pain, nausea/vomiting; CT with distal colonic/rectal mucosal thickening (infectious vs inflammatory colitis vs underdistension) -Headache in the setting of untreated HIV (OI rule-out indicated) -Right middle and lower lobe pulmonary infiltrates (pneumonia vs other) -Urinalysis consistent with cystitis/UTI (LE 3+, nitrites 2+, WBC 31/HPF, few bacteria) -Mild tachycardia; oxygenation acceptable on room air -Substance use: alcohol and amphetamines; no tobacco -Unhoused; occasionally stays with friend in [place] -MSM with recent unknown sexual contacts -Incidental CT finding: sclerosis of bilateral femoral heads, suggestive of avascular necrosis; no articular collapse noted - GPC bacteremia Assessment This is a 54-year-old male with known HIV (not on ART) presenting with headache, watery diarrhea, abdominal pain, nausea, and vomiting. He is a poor historian. Initial labs show WBC 7.2, Hgb 11.9, Plt 319; BMP notable for Cr 0.96, BUN 12, Na 138; LFTs within normal limits. UA suggests cystitis/UTI. CT abdomen/pelvis (non-contrast) shows distal colon/rectal mucosal thickening (infectious vs inflammatory colitis vs underdistension), right middle and lower lobe infiltrates, mild bladder wall thickening, and bilateral femoral head sclerosis suggestive of avascular necrosis. C. difficile testing negative. He is mildly tachycardic; oxygen saturation mid-90s on room air. Given untreated HIV and symptoms (headache, diarrhea), opportunistic infections remain a concern pending CD4/viral load. cd4 count 01/24: ongoing diarrhea, rxed symtuza, poor compliance, positive for syphilis 1:8 titer (no treatment hx locally per [facility]) 11 Plan: - PATIENT IS NOT A TB RULE OUT. no respiratory or CXR findings noted. no isolation needed. quantiferon tb is HIV ART management. please continue with brain MRI - repeat blood cultures - will need to treat syphilis as presumed late latent disease (acquire Lumbar puncture if headaches worsen (protein, cell count, glucose, bacterial culture, VDRL)): 100mg doxycycline po bid x 28 days - can stop IV penicillin - agree w/ vancomycin for GPC bacteremia, check TTE and acute hepatitis panel given drug use history - diarrhea is chronic, ensure electrolytes are repleted - will need stool culture, c.diff testing, stool O&P x3, CMV ab serology - can start Biktarvy for now to improve compliance and reduce HIV viral load -Diagnostics: - check genosure to determine appropriate ART regimen -HIV staging: CD4 count and HIV viral load pending (follow up). -AMUSEMENT EQUIPMENT OPERATOR evaluation for OI given headache and untreated HIV: MRI brain to assess for cryptococcoma and toxoplasmosis. -Stool testing: stool culture, ova and parasites; consider expanded GI panel (BioFire) if CD4 <100. -Microbiology: blood cultures, urine culture. -Serologies: CMV antibodies, cryptococcal antibodies/antigen, and Toxoplasma antibodies; additional workup guided by CD4/viral load. -TB evaluation prior to ART initiation as clinically indicated. -Antimicrobial therapy: -Patient was started on levofloxacin and metronidazole (Flagyl) on admission. -Continue metronidazole for colitis coverage per current plan. -Consider TMP-SMX (Bactrim) if concern for PJP arises; patient is only minimally hypoxic and not currently requiring oxygen. No need for ceftriaxone per current assessment. -Supportive care: -Fluid resuscitation and electrolyte monitoring/repletion given frequent bowel movements and risk for depletion. -Infection control: -Isolation Precautions: standard. -Disposition/Follow-up: -Monitor vital signs, oxygenation, fluid status, and clinical response. -Adjust antimicrobial and diagnostic plan based on pending results (CD4, viral load, cultures, serologies, MRI findings). Assessment and plan was discussed with the patient as written above. Plan is subject to change pending incorporation of new incoming information/diagnostics. Updates may be added as addendum at the bottom (or top) of this note. Physical Exam: General: NAD Neck: Supple. No masses. HEENT: PERRL. Normal lids and conjunctiva. Moist mucous membranes. Oropharynx without lesions, exudates, or excessive erythema. Normal appearance of the external aspects of the nose and ears. Heart: Mild tachycardia. Regular rhythm. No lower extremity edema noted. Lungs: Normal respiratory effort. Clear to auscultation bilaterally. No wheezes. No crackles. Abdomen: Soft. Non-tender. Non-distended. No masses or abdominal hernia. Msk: No digital cyanosis. Strength 5/5 in upper extremities. No lower extremity strength. Skin: Warm and dry, no rashes. Neuro: Alert and oriented. No facial droop or slurred speech. Extra- ocular movements intact. Sensation intact to soft touch in all 4 limbs. Psych: Appropriate mood. Full affect. Oriented to person, place, time, and situation. Plan discussed with: Patient Dietary Evaluation Review Recommendations by RD: Increase Calorie Intake TON MILLER MD Jan 25, 2025 10:07 E/M VISIT PERFORMED BY: TRANSCRIBED BY:TON MILLER MD TRANSCRIBED DATE/TIME:01/25/25 1007 ELECTRONICALLY SIGNED BY:TON MILLER MD 01/25/25 1007 ELECTRONICALLY CO-SIGNED BY: Patient Name: ROCIO MENG Acct: [id number] Room: 0233 /Bed: A Attending Physician: SARAH CARRILLO RESIDENT Loc: [facility] Unit: [id number] CONSULTATION REPORT . ................................................................................ ............................................................................... ROXANA [facility] 01/27/25 1416: Date Seen: Jan 27, 2025 Referring Physician MD Norma Reason for Consultation WOJCIECH rule out infective endocarditis History of Present Illness This is a 54-year-old man who presented to the emergency room with a chief complaint of diarrhea for one week. The patient presented with complaints of watery stools associated with abdominal pain, nausea, vomiting, and headache. He has been diagnosed with acute sigmoid colitis and proctitis. Cardiology consulted for a transesophageal echocardiogram to rule out infective endocarditis. The patient denies predisposing heart conditions or pyrexia. Significant medical history includes untreated HIV , longstanding history of methamphetamine use, cannabinoid use, and depression. Past Medical History Past medical history reviewed. No other significant than mentioned above. Past Surgical History Past surgical history reviewed. No other significant than mentioned above. Family History: Patient reports no known family medical history. Family History Family history reviewed. Social History Uses methamphetamines on daily basis since 36 y.o. Admits to cannabinoid use, occasional basis. Denies the use of alcohol or cigarettes. Allergies: Coded Allergies: NO KNOWN ALLERGIES (Unverified , 01/22/25) Home Meds Denies any home medications. Current Medications Current Medications Medications (Trade) Dose Ordered Sig/Joni Route PRN Reason Start Time Stop Time Status Last Admin Vancomycin HCl 100 ml @ 100 mls/hr Q8H IV 01/27/25 10:00 01/27/25 11:14 Review of Systems Constitutional: No symptom reported Ears, Nose, & Throat: No symptom reported Eyes: No symptom reported Neurological: SUGGS Pulmonary/Respiratory: No symptom reported Cardiovascular: No symptom reported Gastrointestinal: Abdominal pain, nausea,, vomiting, watery stools Genitourinary: No symptom reported Musculoskeletal: No symptom reported Skin: No symptom reported Psychiatric: No symptom reported Endocrine: No symptom reported Hemotologic/Lymphatic: No symptom reported Vital Signs Vital Signs Date Time Temp Pulse Resp B/P (MAP) Pulse Ox O2 Delivery O2 Flow Rate FiO2 01/27/25 09:00 97.6 79 19 109/74 (86) 96 97.6 01/27/25 08:05 Room Air* 0 21 Physical Exam General Appearance: Cooperative. Thin. Unkempt Head Exam: Normal inspection Neck Exam: Normal inspection. Non-tender. Normal alignment Pulmonary/Respiratory: Chest non-tender. Clear bilateral breath sounds Cardiovascular/Chest: Regular rate and rhythm. S1, S2. Sinus rhythm. No murmurs. No JVD. Peripheral Pulses: 2+ Radial (R). 2+ Radial (L). 2+ Pedal (R). 2+ Pedal (L) Abdominal Exam: Normal bowel sounds Ankle Exam: Negative ankle edema Lower extremities: Negative lower extremity edema Neuro/Mental Status: A&O x4. Coherent Thoughts/Psych: Normal thought pattern. Appropriate mood and affect. Good judgement and insight Appearance: In no acute distress Skin Exam: Positive nail deformity/dystrophy/discolored Labs/Diagnostic Data Labs Test 01/27/25 04:36 01/26/25 22:55 01/25/25 11:00 01/25/25 04:35 Range/Units White Blood Count 6.5 4.4-10.8 10^3/uL Red Blood Count 3.92 L 4.5-5.90 10^6/uL Hemoglobin 11.4 L 13.5-17.5 g/dL Hematocrit 33.4 L 41.0-53.0 % Mean Corpuscular Volume 85.2 80.0-100.0 fL Mean Corpuscular Hemoglobin 29.0 28.0-32.0 pg Mean Corpuscular Hemoglobin Concent 34.1 32.0-36.0 g/dL Red Cell Distribution Width 16.3 H 11.8-14.3 % Platelet Count 306 140-450 10^3/uL Mean Platelet Volume 7.6 6.9-10.8 fL Neutrophils (%) (Auto) 37.0-80.0 % Lymphocytes (%) (Auto) 10.0-50.0 % Monocytes (%) (Auto) 0.0-12.0 % Eosinophils (%) (Auto) 0.0-7.0 % Basophils (%) (Auto) 0.0-2.0 % Neutrophils # (Auto) 1.6-8.6 10 ^3/uL Lymphocytes # (Auto) 0.4-5.4 10 ^3/uL Monocytes # (Auto) 0-1.3 10 ^3/uL Differential Total Cells Counted 100.0 100 Neutrophils % (Manual) 12 L 37.0-80.0 Band Neutrophils % (Manual) 1 Lymphocytes % (Manual) 27 10.0-50.0 Monocytes % (Manual) 7 0-12 Eosinophils % (Manual) 53 H 0-7 Basophils % (Manual) 0 0.0-2.0 Metamyelocytes % (manual) 0 Myelocytes % (Manual) 0 Promyelocytes % (Manual) 0 Blast Cells % (Manual) 0 Reactive Lymphocytes 0 Platelet Estimate Adequate Sodium Level 136 136-145 mmol/L Potassium Level 4.2 3.5-5.1 mmol/L Chloride Level 104 98-107 mmol/L Carbon Dioxide Level 23 20-31 mmol/L Anion Gap 9 5-15 Blood Urea Nitrogen 10 9-23 mg/dL Creatinine 0.90 0.700-1.30 mg/dL Glomerular Filtration Rate Calc 100 >90 mL/min BUN/Creatinine Ratio 11.1 10.0-20.0 Serum Glucose 76 74-106 mg/dL Calcium Level 8.6 L 8.7-10.4 mg/dL Total Bilirubin 0.3 0.2-1.0 mg/dL Aspartate Amino Transferase (AST) 49 H 13-40 U/L Alanine Aminotransferase (ALT) 30 7-40 U/L Alkaline Phosphatase 89 46-116 U/L Total Protein 8.6 H 5.7-8.2 g/dL Albumin 3.1 L 3.2-4.8 g/dL Vancomycin Level Trough 9.3 5-10 ug/mL Magnesium Level 2.1 1.6-2.6 mg/dL Test 01/24/25 18:00 01/24/25 09:00 01/24/25 04:45 01/23/25 16:50 Range/Units Stool for White Cells Few Chlamydia trachomatis (DOMINIC) Negative Negative Neisseria gonorrhoeae (DMOINIC) Negative Negative Plasma/Serum Blood Alcohol < 3.0 <10 mg/dL POC Glucose 141 H 70-106 mg/dl Test 01/23/25 14:24 01/23/25 14:19 01/23/25 10:53 01/23/25 04:36 Range/Units TB Test (QFT) Gold Plus Negative Negative TB Test (QFT) Nil 0.18 . IU/mL TB Test (QFT) Mitogen 3.62 . IU/mL TB Test (QFT) Antigen 1 0.17 . IU/mL TB Test (QFT) Antigen 2 0.16 . IU/mL TB Test (QFT) Criteria Comment . Rapid Plasma Reagin Titer 1:8 A NONREACTIVE Titer Rapid Plasma Reagin Reactive A NONREACTIVE Treponema pallidum Antibody Reactive *A Negative Absolute Neutrophils (auto) 2.0 1.4-7.0 x10E3/uL Absolute Lymphocytes (auto) 1.1 0.7-3.1 x10E3/uL Absolute Monocytes (auto) 0.3 0.1-0.9 x10E3/uL Absolute Eosinophils (auto) 2.2 H 0.0-0.4 x10E3/uL Absolute Basophils (auto) 0.0 0.0-0.2 x10E3/uL Immature Granulocytes % 0 Not Estab. % Immature Granulocytes # 0 0.0-0.1 x10E3/uL Nucleated Red Blood Cells . Immature Blood Cells . Hematology Comments Note: . Percent CD4 Cells 3.9 L 30.8-58.5 % Absolute CD4 Count 43 L 359-1519 /uL T-Lymphocyte CD4/CD8 Ratio 0.10 L 0.92-3.72 Percent CD8 Cells 39.3 H 12.0-35.5 % Absolute CD8 Count 432 109-897 /uL Hemoglobin A1c 5.8 H <5.7 % A1C Triglycerides Level 85 < 150 mg/dL Cholesterol Level 97 < 200 mg/dL LDL Cholesterol 54 < 100 mg/dL HDL Cholesterol 29 L 40-59 mg/dL Lipase 29 12-53 U/L Vitamin B12 Level 252 211-911 pg/mL Vitamin D 25-Hydroxy 52.3 30.0-100 ng/mL Folic Acid 8.46 >5.38 ng/mL Thyroid Stimulating Hormone (TSH) 1.82 0.55-4.78 uIU/mL Hepatitis A IgM Antibody Negative Hepatitis B Surface Antigen Negative Negative Hepatitis B Core IgM Antibody Negative Negative Hepatitis C Antibody Negative Negative HIV-1 Antibody Confirmation Reactive Non Reactive HIV-2 Antibody Confirmation Non reactive Non Reactive HIV (1&2) Ag and Ab, 4th Generation Preliminary reactive Non Reactive HIV (1&2) Antibody Deferred Negative HIV (1&2) Antibody Interpretation Hiv-1 positive H . Test 01/22/25 07:48 01/22/25 07:45 Range/Units Urine Color Yellow Yellow Urine Clarity Turbid H Clear Urine pH 6.5 5.0-9.0 Urine Specific [place] 1.021 1.001-1.035 Urine Protein Trace H Negative Urine Ketones Negative Negative Urine Blood Trace H Negative /uL Urine Nitrite 2+ H Negative Urine Bilirubin Negative Negative Urine Urobilinogen 2 H Negative mg/dL Urine Leukocyte Esterase 3+ Negative /uL Urine RBC 7 0 - 3 /hpf Urine Microscopic WBC 31 H 0-3 /HPF Urine Squamous Epithelial Cells Few <5 /hpf Urine Bacteria Few H None Seen /hpf Urine Glucose Normal Normal mg/dL Urine Opiates Screen Neg NEGATIVE Urine Fentanyl Screen Neg NEGATIVE Urine Barbiturates Screen Neg NEGATIVE Urine Phencyclidine Screen Neg NEGATIVE Urine Amphetamines Screen Pos NEGATIVE Urine Benzodiazepines Screen Neg NEGATIVE Urine Cocaine Screen Neg NEGATIVE Urine Cannabinoids Screen Neg NEGATIVE Stool Occult Blood Sample #3 Negative Negative Microbiology Date/Time Source Procedure Growth Status 01/25/25 11:07 Blood Blood Culture - Preliminary NO GROWTH AFTER 48 HOURS OF INCUBATION. Resulted 01/24/25 18:00 Stool Stool Culture - Preliminary Resulted 01/24/25 18:00 Stool Shiga Toxin I & II Pending Resulted 01/22/25 07:48 Voided Urine Urine Culture - Final Escherichia coli Complete Assessment Bacteremia likely secondary to acute sigmoid colitis/proctitis Positive HIV status Positive syphilis Methamphetamines/cannabinoid use [facility] state Depression Plan/Recommendation (Dr. Fuentes) Case discussed with Dr. Fuentes. The patient underwent a transthoracic echocardiogram revealing an LVEF of 65% with normal RV function, normal atria, and no severe valve abnormalities noted. Cardiology consulted for a transesophageal echocardiogram to rule out infective endocarditis. Severino' criteria for infective endocarditis is rejected as the patient does not meet pathological criteria including microorganisms in a vegetation neither pathologic lesions. The patient does not meet major clinical criteria such as blood cultures for endocarditis or evidence of endocardial involvement on transthoracic echocardiogram. The patient neither meet multiple minor clinical criteria for a WOJCIECH to be advised at this time. There is no further cardiac workup indicated at this time. Kindly re-consult if deemed necessary. Thank you for allowing us to participate in this patient's care. This medical document was created using an electronic medical record system with voice recognition software and computerized dictation system. Although this document has been carefully reviewed, there might still be some phonetic and typographical errors. Occasional wrong-word or ``sound-alike substitutions may have occurred due to the inherent limitations of voice recognition software. These areas are purely typographical due to imperfections of the software programs and do not reflect any compromise in the patient's medical care. Please read the chart carefully and recognize, using context, where these substitutions have occurred. Plan discussed with: Patient, Other NYHA 2 Physical activity limitations: NA Date of Service: Jan 27, 2025 Billing Provider: ROXANA EDMOND Cardiology Common Codes: 29661-[id number] INP/OBS CARE (High) JAYLA FUENTES MD 01/27/25 1658: Family History: Patient reports no known family medical history. Allergies: Coded Allergies: NO KNOWN ALLERGIES (Unverified , 01/22/25) Plan/Recommendation agree with photography instructor assessment and plan pt seen with cv team no indication for wojciech for now unless consistent bacteremic will sign off , please call for ?s Plan discussed with: Patient ROXANA EDMOND Jan 27, 2025 14:16 JAYLA FUENTES MD Jan 27, 2025 16:58 DICTATED BY:ROXANA EDMOND DICTATED DATE/TIME:01/27/25 1416 ELECTRONICALLY SIGNED BY:ROXANA EDMOND 01/27/25 1441 ELECTRONICALLY CO-SIGNED BY:JAYLA FUENTES MD01/27/25 1702 Operations or Procedures [address] [address] Ph: [phone] DIAGNOSTIC IMAGING Diagnostic Imaging Report : [id number] Signed PATIENT: ROCIO MENG ACCT: [id number] UNIT: [id number] : 1970 LOC: ER ROOM / BED: / AGE / SEX: 54 / M ADM STATUS: REG ER SERVICE 0744 ORDERING PHYSICIAN: BRANDON ALMONTE PROCEDURE(s): ABPL - CT AB PEL WO CON-NO ORAL OR IV REASON: ABD PAIN WITH DIZRRHEA X ONE WEEK ORDER NUMBER(s): [id number], ACCESSION NUMBER(s): [id number] Exam: CT CT AB PEL WO CON-NO ORAL OR IV History: ABD PAIN WITH DIZRRHEA X ONE WEEK Comparison Study: None. Technique: Multidetector spiral CT of the abdomen and pelvis was performed from lung bases to pubic symphysis. Imaging was performed without intravenous contrast. Coronal and sagittal multiplanar reformats were obtained from the axial data set by the technologist. Radiation Dose : 1. Abdomen/Pelvis: CTDIvol 5.57 mGy, DLP 323.64 mGy*cm. Findings: Evaluation of vasculature and solid organs is limited due to lack of intravenous contrast use. Evaluation also limited by respiratory motion through the upper abdomen. Lung Bases: There are right middle and lower lobe infiltrates. Coronary artery calcifications noted. Visualized portions of the heart are normal in size. No pericardial effusion. Liver: The liver is normal in size. No focal lesions. Gallbladder and Biliary Tree: The gallbladder is unremarkable. No intrahepatic or extrahepatic biliary ductal dilatation. Spleen: Unremarkable Pancreas: The pancreas is grossly unremarkable. Adrenal Glands: Unremarkable Kidneys: Kidneys are unremarkable without calculi or hydronephrosis. GI tract: The stomach is grossly normal in appearance. No evidence of small bowel wall thickening or abnormal dilatation to suggest bowel obstruction. There is mucosal thickening of the distal sigmoid colon and rectum. No findings to suggest acute appendicitis. Peritoneum/mesentery/retroperitoneum. No evidence of free intraperitoneal air. No ascites. No evidence of suspicious lymphadenopathy. Abdominal Wall: Unremarkable. Vasculature: The visualized abdominal aorta is normal in size and caliber. Evaluation of abdominal and pelvic vessels is limited due to lack of intravenous contrast. Urinary Bladder: Underdistended urinary bladder with wall thickening. Pelvic Organs: Prostate and seminal vesicles are unremarkable. Musculoskeletal: No aggressive focal bony lesions, acute fractures or dislocation. There is serpiginous sclerosis in the bilateral femoral heads. IMPRESSION: 1. Mucosal thickening of the distal sigmoid colon and rectum may be due to underdistention or represent infectious/inflammatory colitis. 2. Right middle and lower lobe infiltrates. 3. Serpiginous sclerosis in the bilateral femoral heads suggesting avascular necrosis. No articular collapse. 4. Mild wall thickening of the urinary bladder may be related to underdistention. Cystitis is not excluded. ATED BY: MARI VASQUEZ MD DICTATED DATE/TIME: 01/22/25922 SIGNED BY: MARI VASQUEZ MD SIGNED DATE/TIME: 01/22/25922 CC: [address] [address] Ph: [phone] DIAGNOSTIC IMAGING Diagnostic Imaging Report : [id number] Signed PATIENT: ROCIO MENG ACCT: [id number] UNIT: [id number] : 1970 LOC: [facility] ROOM / BED: [facility] / A AGE / SEX: 54 / M ADM STATUS: ADM IN SERVICE 43 ORDERING PHYSICIAN: SARAH CARRILLO RESIDENT PROCEDURE(s): CXR1 - CHEST XRAY 1 VIEW REASON: pneumomediastenum/PNA ORDER NUMBER(s): [id number], ACCESSION NUMBER(s): [id number] CHEST RADIOGRAPH Indication: pneumomediastenum/PNA Technique: Single frontal view of the chest was obtained Comparison: None FINDINGS: Lines and Tubes: None Lungs: No focal consolidation. Mild pulmonary vascular congestion. Pleura: No effusion. No pneumothorax. Cardiomediastinal contours: Unremarkable Bones: No acute osseous abnormality. IMPRESSION: 1. No sizable pneumothorax or pneumomediastinum. 2. No focal consolidations. Mild pulmonary vascular congestion. ATED BY: JANNY DURAND MD DICTATED DATE/TIME: 01/23/251416 SIGNED BY: JANNY DURAND MD SIGNED DATE/TIME: 01/23/251416 CC: [address] [address] Ph: [phone] DIAGNOSTIC IMAGING Diagnostic Imaging Report : [id number] Signed PATIENT: ROCIO MENG ACCT: [id number] UNIT: [id number] : 1970 LOC: EAST ROOM / BED: 0233 / A AGE / SEX: 54 / M ADM STATUS: ADM IN SERVICE 1357 ORDERING PHYSICIAN: TON MILLER MD PROCEDURE(s): [facility] - BRAIN HEAD WO W CONTRAST REASON: ORDER NUMBER(s): [id number], ACCESSION NUMBER(s): [id number] PROCEDURE: MRI BRAIN HEAD WO W CONTRAST INDICATION: headache, hiv/aids, EXAM DATE: 01/25/2025 03:55 PM COMPARISON: None TECHNIQUE: MRI of the brain without intravenous contrast. FINDINGS: Diffusion weighted images of the brain demonstrate no evidence of acute infarction. There is no evidence of acute intracranial hemorrhage, extra-axial collection, mass effect, midline shift, herniation or hydrocephalus. The ventricles, sulci and cisterns appear age appropriate. Focal area of increased T2/FLAIR signal with volume loss in the posterior left frontal cortex compatible with a prior infarct. There are no signal abnormalities on the susceptibility weighted sequences. The major vascular flow voids are present. Mucosal thickening throughout the paranasal sinuses, right worse than left. The surrounding soft tissues and osseous structures are unremarkable. IMPRESSION: No recent infarct or other acute intracranial abnormality. Inflammatory sinus disease. ATED BY: CRISTIAN FABIAN MD DICTATED DATE/TIME: 01/25/252306 SIGNED BY: CRISTIAN FABIAN MD SIGNED DATE/TIME: 01/25/252306 CC: [place] [id number] Ph: [phone] DIAGNOSTIC IMAGING Diagnostic Imaging Report : [id number] Signed PATIENT: ROCIO MENG ACCT: [id number] UNIT: [id number] : 1970 LOC: [facility] ROOM / BED: 0233 / A AGE / SEX: 54 / M ADM STATUS: ADM IN SERVICE 1206 ORDERING PHYSICIAN: SARAH CARRILLO PROCEDURE(s): [facility] - ECHO 2D MODE CARDIAC DOP REASON: Rule out endocarditis ORDER NUMBER(s): [id number], ACCESSION NUMBER(s): [id number] APPROVED REPORT EXAM: Two-dimensional and M-mode echocardiogram with Doppler and color Doppler. Blood Pressure: 122/85 mmHg INDICATION Rule out endocarditis RISK FACTORS Height: 5'6", Weight: 152 DIMENSIONS LVDd 4.6 (3.8-5.7cm) LA (2D) 3.4 (1.9-4.0cm) Aortic Root 3.7 (2.0- 3.7cm) LVDs 2.9 (2.5-4.0cm) LA (MM) (1.9-4.0cm) Aortic Cusp Exc 2.1 (1.5- 2.0cm) EF (%) 66.0 (55-70%) Rt. Atrium 3.8 (1.9-4.0cm) Asc. Aorta cm IVSd 1.0 (0.7-1.1cm) RV (D) 3.8 (1.8-2.4cm) PWd 0.7 (0.7-1.1cm) Mitral Valve Mitral Mitral Stenosis E wave 0.66m/s MV Mean GR. mmHg A wave 0.81m/s MV Peak GR. mmHg E/A ratio 0.8 2D MVA cm2 DECEL Time 275ms PRESS 1/2 Time ms Aortic Valve Aortic Valve Aortic Stenosis V1 1.09m/s AO Mean GR. 3mmHg V2 1.16m/s AO Peak GR. 5mmHg LVOT Diameter 2.0 (1.8-2.4cm) Doppler MORENO 2.95cm2 Pulmonic Valve V2 1.07m/s Conclusion lvef 65% normal rv function normal atria no severe valve abnormalities noted SIGNED BY: JAYLA FUENTES MD SIGNED DATE/TIME: 01/25/25 1023 CC: Condition at Discharge: Stable Final Diagnosis/Problems List # acute intractable nausea and vomiting and abdominal pain likely due to acute sigmoid colitis and proctitis # acute gastroenteritis likely due to above # bacteremia to Staphylococcus species, ruled out endocarditis # suspected pneumonia, #Syphilis #UTI # HIV # Substance abuse, UDS positive for methamphetamine # depression # Serpiginous sclerosis in the bilateral femoral heads suggesting avascular necrosis-CT scan findi # Non compliance Discharge Disposition: Home Discharge Instruct/Medications Diet: Regular Activity: No Restrictions, As Tolerated Follow Up/Referral: [facility] PCP Infectious disease Medications: As prescribed Scheduled Azithromycin (Zithromax Tablet), 250 MG PO DAILY Jdsxpztzdsn-Hcipldjnpvauh-Chyy (Biktarvy 50-200-25 mg), 1 TAB PO BID Citalopram Hydrobromide (Citalopram Hydrobromide), 1 TAB PO DAILY Doxycycline (Monohydrate) (Doxycycline), 100 MG PO BID Sulfamethoxazole W/Trimethopri (Bactrim Ds Tablet), 1 TAB PO DAILY Discharge Statement: "Patient was advised to return to the ER or call 911 if any headaches, dizziness, shortness of breath, chest pain, abdominal pain, bleeding, fevers, or worsening of medical condition. Patient was counseled about treatment plan, medications, possible side effects, patientverbalized understanding. All questions were answered to the best of my ability. This discharge took greater then 30 minutes in planning, reviewing documentation, counseling the patient, and discussing with other team members." ASSESSMENT ASSESSMENT Assessment HIV Syphilis Colitis/proctitis UTI Visit Coding STANDARD RES Billing Provider: MADISON TRIANA MD Date of Service if different f: Jan 30, 2025 Common Visit Codes: 77474-INK/OBS DISCH DAY >30min SARAH CARRILLO RESIDENT Jan 30, 2025 12:22 LALITA ZARAGOZA RESIDENT Jan 30, 2025 17:33
[2025-01-30] MEDS ORDERED: DOXY100C79 PO (12:25)
[2025-01-30] MEDS ORDERED: BACDST PO (12:25)
[2025-01-30] MEDS ORDERED: AZIT500T PO (12:25)
[2025-01-30] MEDS ORDERED: BICT1TAB PO (12:25)
[2025-01-30] MEDS ORDERED: CITA-73 PO (12:26)
[2025-01-30 13:00] VITALS: BP 115/79; PULSE 82; RESP 17; TEMP 98.1; O2SAT 97
[2025-01-30] MEDS ORDERED: AZIT-185 PO ×2 (16:07→17:37)
[2025-01-30 17:00] VITALS: BP 115/79; PULSE 82; RESP 1; TEMP 98.2; O2SAT 97
--- NOTE | 2025-01-31 21:58 | DVHPN2 ---
Consult Progress Note Date Seen: Jan 30, 2025 Subjective Patient reports: Feels better (no longer having loose stools.) Objective vital signs Vital Sign Date Time Temp Pulse Resp B/P (MAP) Pulse Ox O2 Delivery O2 Flow Rate FiO2 01/30/25 17:00 98.2 82 1 115/79 (91) 97 98.2 01/30/25 07:35 Room Air* 0 21 Total Intake and Output 01/30/25 01/30/25 01/31/25 14:59 22:59 06:59 Intake Total 1225 ml Balance 1225 ml medications Current Medications Medications Dose Ordered Sig/Joni Route Start Time Stop Time Status Last Admin Dose Admin Trimethoprim/ Sulfamethoxazole 1 tab DAILY PO 01/28/25 17:00 UNV laboratory and microbiology Laboratory Tests 01/30/25 04:40 01/28/25 08:45 Test 01/30/25 04:40 Range/Units Serum Glucose 77 74-106 mg/dL Problem List/Assessment/Plan Problem List/Assessment/Plan Plan/Recommendation ASSESSMENT AND PLAN: ID Problem List: - HIV/AIDS -HIV infection; non-adherent to therapy; viral load unknown; CD4 pending -Watery diarrhea with abdominal pain, nausea/vomiting; CT with distal colonic/rectal mucosal thickening (infectious vs inflammatory colitis vs underdistension) -Headache in the setting of untreated HIV (OI rule-out indicated) -Right middle and lower lobe pulmonary infiltrates (pneumonia vs other) -Urinalysis consistent with cystitis/UTI (LE 3+, nitrites 2+, WBC 31/HPF, few bacteria) -Mild tachycardia; oxygenation acceptable on room air -Substance use: alcohol and amphetamines; no tobacco -Unhoused; occasionally stays with friend in [place] -MSM with recent unknown sexual contacts -Incidental CT finding: sclerosis of bilateral femoral heads, suggestive of avascular necrosis; no articular collapse noted - GPC bacteremia Assessment This is a 54-year-old male with known HIV (not on ART) presenting with headache, watery diarrhea, abdominal pain, nausea, and vomiting. He is a poor historian. Initial labs show WBC 7.2, Hgb 11.9, Plt 319; BMP notable for Cr 0.96, BUN 12, Na 138; LFTs within normal limits. UA suggests cystitis/UTI. CT abdomen/pelvis (non-contrast) shows distal colon/rectal mucosal thickening (infectious vs inflammatory colitis vs underdistension), right middle and lower lobe infiltrates, mild bladder wall thickening, and bilateral femoral head sclerosis suggestive of avascular necrosis. C. difficile testing negative. He is mildly tachycardic; oxygen saturation mid-90s on room air. Given untreated HIV and symptoms (headache, diarrhea), opportunistic infections remain a concern pending CD4/viral load. cd4 count 01/24: ongoing diarrhea, rxed symtuza, poor compliance, positive for syphilis 1:8 titer (no treatment hx locally per [facility]) 01/25: loose stools. cryptococcal antigen test and HIV RNA levels tests were misprocessed 01/26: staphylococcal simulans in blood, oxacillin resistant, TTE wo valvular disease, negative for hepatitis 01/27: brain MRI: No recent infarct or other acute intracranial abnormality. 01/28: toxoplasma IgG and CMV iGG positive. quantiferon gold negative Plan: - repeat HIV RNA level - repeat blood cultures ngtd - ok to start biktarvy empirically while awaiting genosure testing (rx to in house pharmacy, patient should start at discharge or preferably while inpatient) - IF patient does not acquire bikarvy prior to discharge, please start azithromycin 1 tab daily and bactrim 1DS daily as prophylaxis for AIDS x 30 days - will need to treat syphilis as presumed late latent disease (acquire Lumbar puncture if headaches worsen (protein, cell count, glucose, bacterial culture, VDRL)): 100mg doxycycline po bid x 28 days - continue vancomycin while inpatient for bacteremia (will be covered by doxycycline for syphilis treatment as outpatient) - diarrhea is chronic, ensure electrolytes are repleted - can start Biktarvy for now to improve compliance and reduce HIV viral load, HIV enteritis treatment - patient is clear for dc so long as patient does not require IV electrolyte repletion. diarrhea will likely improve with biktarvy compliance, fu in ID clinic in 2 weeks for monitoring of diarrhea, boarder for workup for enteric AIDS pathogens. -Diagnostics: - check genosure to determine appropriate ART regimen -HIV staging: CD4 count and HIV viral load pending (follow up). -[employer] evaluation for OI given headache and untreated HIV: MRI brain to assess for cryptococcoma and toxoplasmosis. -Stool testing: stool culture, ova and parasites; consider expanded GI panel ([employer]) if CD4 <100. -Microbiology: blood cultures, urine culture. -Serologies: CMV antibodies, cryptococcal antibodies/antigen, and Toxoplasma antibodies; additional workup guided by CD4/viral load. -TB evaluation prior to ART initiation as clinically indicated. -Antimicrobial therapy: -Patient was started on levofloxacin and metronidazole (Flagyl) on admission. -Continue metronidazole for colitis coverage per current plan. -Consider TMP-SMX (Bactrim) if concern for PJP arises; patient is only minimally hypoxic and not currently requiring oxygen. No need for ceftriaxone per current assessment. -Supportive care: -Fluid resuscitation and electrolyte monitoring/repletion given frequent bowel movements and risk for depletion. -Infection control: -Isolation Precautions: standard. -Disposition/Follow-up: -Monitor vital signs, oxygenation, fluid status, and clinical response. -Adjust antimicrobial and diagnostic plan based on pending results (CD4, viral load, cultures, serologies, MRI findings). Assessment and plan was discussed with the patient as written above. Plan is subject to change pending incorporation of new incoming information/diagnostics. Updates may be added as addendum at the bottom (or top) of this note. Physical Exam: General: NAD Neck: Supple. No masses. HEENT: PERRL. Normal lids and conjunctiva. Moist mucous membranes. Oropharynx without lesions, exudates, or excessive erythema. Normal appearance of the external aspects of the nose and ears. Heart: Mild tachycardia. Regular rhythm. No lower extremity edema noted. Lungs: Normal respiratory effort. Clear to auscultation bilaterally. No wheezes. No crackles. Abdomen: Soft. Non-tender. Non-distended. No masses or abdominal hernia. Msk: No digital cyanosis. Strength 5/5 in upper extremities. No lower extremity strength. Skin: Warm and dry, no rashes. Neuro: Alert and oriented. No facial droop or slurred speech. Extra- ocular movements intact. Sensation intact to soft touch in all 4 limbs. Psych: Appropriate mood. Full affect. Oriented to person, place, time, and situation. Plan discussed with: Patient Dietary Evaluation Review Recommendations by RD: Increase Calorie Intake Comments: Nutrition Recommendation: 1) Consider NCS soft diet 2) Monitor PO intake, lab values, weight trend, and I/O Expected Outcomes/Goals: Intake to meet >75% estimated needs FU 3-5 days SUNDAY ODNATO MD Jan 31, 2025 21:58
== END 2025-01-30 16:41 | disposition home or self-care (01) | DRG 892 ==
LOC: ER 07:19 → OVERFLOW 09:41 → EAST 16:04
PROVIDERS: ADMIT Internal Medicine Geriatric Medicine; ATTEND Internal Medicine Geriatric Medicine
DX: B20 Human immunodeficiency virus [HIV] disease (principal); J15.69 Pneumonia due to other Gram-negative bacteria; R78.81 Bacteremia; E44.0 Moderate protein-calorie malnutrition; J15.9 Unspecified bacterial pneumonia; N30.00 Acute cystitis without hematuria; F32.A Depression, unspecified; F15.10 Other stimulant abuse, uncomplicated; Z59.00 Homelessness unspecified; A09 Infectious gastroenteritis and colitis, unspecified; A53.9 Syphilis, unspecified; K62.89 Other specified diseases of anus and rectum; Z91.199 Patient's noncompliance with other medical treatment and regimen due to unspecified reason
CPT/HCPCS: 36415; 70553; 71045; 74176; 80048; 80053; 80061; 80074; 80202; 80307; 80320; 81001; 82270; 82306; 82565; 82607; 82746; 82962; 83036; 83690; 83735; 84443; 85007; 85027; 85048; 86360; 86592; 86593; 86641; 86644; 86645; 86703; 86777; 86778; 86780; 87040; 87045; 87077; 87086; 87088; 87186; 87389; 87493; 87536; 93306; 96361; 96374; G0378; J1956; J3490; J7060